=== PATIENT | female | born 1960 | race Caucasian/White ===

== ENCOUNTER 2016-03-28 16:00 | Inpatient (IN) | payer BC, MEDICARE, OTHER ==
[~2016-03-28] VITALS: Ht 170.2 cm; Wt 110.1 kg
[~2016-03-28 16:00] MED LIST: ACETYL L-CARNI500 MG; AMITIZA8 MCG PO; ANALPRAM HC 2.530 GM RC; ANUSOL-HC 2.5%30 GM TOPICAL; ATARAX 25 MG TA25 MG PO; BAYER CHEWABLE81 MG PO; BUMEX2 MG PO; BYSTOLIC10 MG PO; CARDIZEM CD180 MG PO; CELEXA40 MG PO; CLEOCIN HCL150 MG PO; COLACE100 MG PO; COREG25 MG PO; COREG6.25 MG PO; DIOVAN80 MG PO; DOXYCYCLINE HY100 M2 PO; EXFORGE HCT 101 EAC1 PO; EXFORGE HCT 101 EACH PO; FIORICET TABLET1 TAB PO; FLUTICASONE PRO16 GM NS; FOLIC ACID1 MG PO; GLUCOPHAGE1000 MG PO; KEFLEX250 MG PO; KLOR-CON 1010 MEQ PO; LASIX40 MG PO; LEVEMIR FLEXTOUCH 10 SC; LEVEMIR100 U/M1 SC; LEVEMIR100 U/M1 SQ; LYRICA25 MG PO; LYRICA50 MG PO; MAGNESIUM OXID250 MG PO; METHOTREXATE PO; METHOTREXATE2.5 MG PO; METOLAZONE5 MG PO; MICRO-K10 MEQ PO; NORCO 7.5/325 T1 TA1 PO; NOVOLOG100 U/M1 SQ; PAROXETINE HCL10 MG PO; PENICILLIN V P500 MG PO; PEPCID20 MG PO; PHOSLO667 MG PO; PLAVIX75 MG PO; POTASSIUM CHLOR8 ME1 PO; PRAVACHOL20 MG PO; PRAVACHOL40 MG PO; PRILOSEC20 MG PO; PROCRIT/EP40000 UNIT SQ; REQUIP0.25 MG PO; TREXALL10 MG PO; TRIGLIDE160 MG PO; TUMS500 MG PO; ULTRACET TABLET1 TAB PO; VALIUM5 MG PO; VITAMIN D2000 UNIT PO; ZESTORETIC 20/21 TAB PO; ZOFRAN4 MG PO; ZYLOPRIM100 MG PO; ZYRTEC10 MG PO; [UNRECOGNIZED DRUG - OTHER] PO
[2016-03-28] MEDS ORDERED: NOVOLOG100 U/M1 SC (16:49)
[2016-03-28 16:53] VITALS: BMI 37.3
--- NOTE | 2016-03-28 19:58 | NUR ---
REPORT CALLED TO DARRYL OLIVARES IN ICU, PATIENT TRANSPORTED TO ROOM 2307 BY WHEELCHAIR FOR TRANSFUSION TO BE COMPLETED. PATIENT AWAKE, ALERT, NO COMPLAINTS, VSS
--- NOTE | 2016-03-30 16:50 | NUR ---
PT ARRIVED TO UNIT WITH FAMILY AT SIDE. VSS. PT IS ALERT AND ORIENTED AND ANSWERS ALL QUESTIONS APPROPRIATELY. WILL CONTINUE WITH ADMISSION PROCESS AT THIS TIME.
[2016-03-30 16:59] LABS: INR 1.28 (0.85-1.17); PROTIME 15.9 SECONDS (11.6-15.0)
[2016-03-30 17:00] LABS: BASOPHILS 0.2 % (0.0-2.0); EOSINOPHILS 2.2 % (0-7); IMMATURE GRANULOCYTES 0.2 % (0-5); LYMPHOCYTES 26.1 % (15-50); MCH 30.9 pg (26.0-34.0); MCHC 31.4 g/dL (31.0-37.0); MCV 98.7 fL (80.0-100.0); MEAN PLATELET VOLUME 11.8 fL (7.4-10.4); MONOCYTES 4.9 % (2-11); NEUTROPHILS 66.4 % (40-80); RBC 2.23 10x6/uL (4.00-5.40); RDW 17.5 % (11.5-14.5); WBC 4.1 10x3/uL (4.8-10.8)
[2016-03-30 17:03] LABS: HEMOGLOBIN 6.9 g/dL (12-16); PLATELET COUNT 101 10x3/uL (130-400)
[2016-03-30 17:06] LABS: ALBUMIN 2.4 g/dL (3.4-5.0); ANION GAP 11.8 mmol/L (8-16); BILIRUBIN - TOTAL 0.77 mg/dL (0.2-1.3); CALCIUM 8.1 mg/dL (8.5-10.1); CARBON DIOXIDE 27.6 mmol/L (21.0-32.0); CREATININE - SERUM 3.4 mg/dL (0.6-1.3); PHOSPHOROUS 4.2 mg/dL (2.5-4.9); POTASSIUM - SERUM 3.4 mmol/L (3.5-5.1)
[2016-03-30] MEDS ORDERED: LEVEMIR100 U/M1 SC (17:54)
[2016-03-30 17:58] VITALS: BP 116/47; BMI 37.7
--- NOTE | 2016-03-30 18:50 | NUR ---
FSBS 327. PT REC'D 8UNITS PER SS INSULIN. PT IS SITTING UP ON EDGE OF BED EATING DINNER. PT HAS FAMILY AT BEDSIDE. RR NONLABORED ON RA. PT DENIES ANY FURTHER NEEDS AT THIS TIME. CL IN REACH. WILL CPOC.
[2016-03-30 20:00] VITALS: BP 117/47
--- NOTE | 2016-03-30 20:00 | NUR ---
CONTACTED BY [facility]. INSTRUCTED TO ADMINISTER 4 UNITS BLOOD. TO GIVE 2 UNITS FIRST AND RECHECK H&H. IF HEMOGLOBIN <5 OR HEMATOCRIT <25 GIVE 3RD AND 4TH UNITS
--- NOTE | 2016-03-30 22:09 | NUR ---
CONSULT CALLED TO DR GARRETT. APPROX 2148 FOR AM EGD. INSTRUCTED NOT TO CALL CONSULTS IN UNTILL NORMAL BUISNESS HOURS. ALSO INSTRUCTED TO START TAP WATER ENEMAS AT 0600 TO PREP PATIENT FOR AM EGD AND FLEX SIG.
[2016-03-31] VITALS: BP 100/47; BP 112/41
--- NOTE | 2016-03-31 00:25 | NUR ---
NECK CUTTER AT BEDSIDE TO OBTAIN VITALS, CALL LIGHT IN REACH. WILL CONTINUE WITH PLAN OF CARE.
[2016-03-31 05:43] LABS: BASOPHILS 0.4 % (0.0-2.0); EOSINOPHILS 1.2 % (0-7); HEMATOCRIT 23.5 % (36.0-48.0); IMMATURE GRANULOCYTES 0.2 % (0-5); INR 1.34 (0.85-1.17); LYMPHOCYTES 12.7 % (15-50); MCH 31.5 pg (26.0-34.0); MCHC 31.9 g/dL (31.0-37.0); MCV 98.7 fL (80.0-100.0); MONOCYTES 6.8 % (2-11); NEUTROPHILS 78.7 % (40-80); PLATELET COUNT 94 10x3/uL (130-400); PROTIME 16.5 SECONDS (11.6-15.0); RBC 2.38 10x6/uL (4.00-5.40); WBC 4.9 10x3/uL (4.8-10.8)
[2016-03-31 05:49] LABS: ALBUMIN 2.1 g/dL (3.4-5.0); BILIRUBIN - TOTAL 1.7 mg/dL (0.2-1.3); CALCIUM 8.3 mg/dL (8.5-10.1); PROTEIN - SERUM 6.3 g/dL (6.4-8.2)
[2016-03-31 05:55] LABS: CREATININE - SERUM 4.4 mg/dL (0.6-1.3); HEMOGLOBIN 7.5 g/dL (12-16)
--- NOTE | 2016-03-31 06:40 | HP ---
PATIENT: VIVI ALARCON MEDICAL RECORD: [id number] ACCOUNT: [id number] LOCATION:[address] : 56 ADMISSION DATE: 03/30/16 HISTORY AND PHYSICAL EXAMINATION REASON FOR CONSULTATION: Symptomatic anemia with hemoglobin of 5.8. HISTORY OF PRESENT ILLNESS: This is a nice end-stage renal disease patient with the above birthday who had a hemoglobin of 8.[address] Booth' yesterday and is down to 5.2 on dialysis. She is having symptoms. She is unsure whether she is having any bleeding in her stool. REVIEW OF SYSTEMS: Related to her anemia. No chest pain. Some shortness of breath and dyspnea on exertion. PAST MEDICAL HISTORY: 1. End-stage renal disease, on dialysis. 2. Cataracts, in glasses. 3. Allergic rhinitis. 4. Diabetes mellitus type 2, on Levemir. 5. Hypertension. 6. Coronary artery disease with 7 stents in 2012. 7. History of myocardial infarction. 8. History of pneumonia. 9. CPAP. 10. She had rectal bleeding at [facility]. 11. Diabetic neuropathy. 12. Secondary hyperparathyroidism. 13. Hyperlipidemia. PAST SURGICAL HISTORY: With stents as above, HemoSplit catheter IJ, hemorrhoidectomy with Dr. James on 12/18/2015 and cholecystectomy. ALLERGIES: CLINDAMYCIN, LATEX, TETRACYCLINE AND ERYTHROMYCIN. HOME MEDICATIONS: Requip 0.5 mg p.o. q.h.s., Ultram 50 p.r.n. pain, Levemir had been on 40 units and will need to convert her dose. She is also on PhosLo 667 three with meals t.i.d., Coreg 25 b.i.d., pravastatin 40 mg at night, Protonix 40 mg a day, Lyrica 50 mg a day, Amitiza 8 mcg once a day, Colace 100 mg p.o. p.r.n. She will be on insulin sensitive sliding scale. FAMILY HISTORY: Mother and father with diabetes and cardiovascular disease. SOCIAL HISTORY: No alcohol, tobacco or illicit drugs. She is now on dialysis. She is living with her daughter now due to her symptomatic anemia here in [place], but is from [place] initially. PHYSICAL EXAMINATION: VITAL SIGNS: She is 118/72, 66-72 heart rate, 20 respiratory rate, afebrile. GENERAL: She is alert and oriented times 3. HEENT: Normocephalic, atraumatic. Clear nares. Clear throat. She does have pale conjunctiva consistent with her anemia. NECK: No JVD or thyromegaly. CHEST: Regular rhythm. S1, S2. LUNGS: Have clear breath sounds bilaterally. HISTORY AND PHYSICAL [id number] VIVI ALARCON ABDOMEN: Has some obesity. Positive bowel sounds. No appreciable hepatosplenomegaly. IJ tunneled catheter with no sign of erythema. EXTREMITIES: +2 brachial pulses even and bilateral, +1 to 2 lower extremity edema. Negative Babinski. I did not stand and ambulate her as she is on dialysis. LABORATORY DATA: Stat CMP, CBC, INR, type and cross and hold 4 units. ASSESSMENT AND PLAN: 1. Symptomatic anemia. We will consult Dr. Booth as he mentioned that she may need to be placed in the hospital. She does have a history of rectal bleed, has not noted any bleeding at this time. We will continue her Protonix. 2. End-stage renal disease, on dialysis. We will continue her prescription. 3. Hyperphosphatemia. We will continue her phosphate binders and monitor her calcium and phosphorus. 4. Hypertension, is now on Coreg. 5. Coronary artery disease. No current chest pain. We will continue her Coreg. We will continue to evaluate. 6. Chronic obstipation, is on Colace p.r.n. 7. Allergic rhinitis, on Zyrtec 10 mg p.o. daily. 8. Secondary hyperparathyroidism. If she has a prolonged admission, we will continue her vitamin D. 9. Type 2 diabetes, on a sliding scale, we need her dose of Levemir. PLAN: 1. Please see orders. 2. Appreciate Dr. Booth. TRANSINT:[id number] Voice Confirmation ID: [id number] DOCUMENT ID: [id number] ARBEN PIZARRO MD at 0640 CC: [id number] DICTATION DATE: 03/30/16 1349 AUTOMOTIVE GLASS TECHNICIAN: 03/30/16 1427 ADM IN [place] [id number] [place] [address]
[2016-03-31 08:00] VITALS: BP 129/48
--- NOTE | 2016-03-31 08:12 | NUR ---
ASSESSEMENT DONE. PT SITTING UP IN BED TALKING WITH SPOUSE. A/O. NO DISTRESS NOTED. DENIES NEEDS. ENEMA'S STARTED. PT TOLERATED WELL. CALL LIGHT WITH IN REACH. WILL CONT. TO MONITOR.
--- NOTE | 2016-03-31 09:40 | NUR ---
RESTS IN BED WITH CALL LIGHT IN REACH. HAMZAH NEEDS AT THIS TIME. WILL MONITOR.
--- NOTE | 2016-03-31 10:04 | NUR ---
PT TO GI LAB VIA BED
[2016-03-31 10:53] VITALS: Ht 170.2 cm; Wt 110.1 kg
--- NOTE | 2016-03-31 13:25 | NUR ---
PT BACK FROM GI LAB. A/O. WANT SHOWER. REQUEST ICE WATER. DECLINES FOOD AT THIS TIME. B/P 144/44, P-70. CALL LIGHT WITH IN REACH. SPOUSE IN ROOM. WILL CONT. TO MONITOR.
--- NOTE | 2016-03-31 18:20 | NUR ---
PT LAYING IN BED WATCHING TV. SPOUSE IN ROOM. NO DISTRESS NOTED. DENIES NEEDS. CALL LIGHT WITH IN REACH.
[2016-03-31 22:35] VITALS: BP 117/42
--- NOTE | 2016-04-01 01:14 | NUR ---
PT RESTING SOUNDLY WITHOUT C/O OR DISTRESS NOTED. CALL LIGHT IS WITHIN REACH. NO NEEDS VOICED. WILL MONITOR.
[2016-04-01 01:32] VITALS: BP 132/68
[2016-04-01 05:59] VITALS: BP 106/40
--- NOTE | 2016-04-01 07:28 | NUR ---
SIDTTING ON SIDE OF BED WITH AM ROUNDING. SPOUSE IN CHAIR ASLEEP. DENIES NEEDS AT PRESENT TIME. ON ROOM AIR. LEFT AVF SEEN. RIGHT CHEST HEMISPLIT WITH DRY DRESSING INTACT. RIGHT FA WITH SALINE LOCK SEEN. WILL CONTINUE TO MONITOR.
[2016-04-01 08:00] VITALS: BP 146/55
[2016-04-01 09:10] LABS: HEPATITIS C ANTIBODY <0.1 (0.0-0.9)
[2016-04-01 09:52] LABS: BASOPHILS 0.6 % (0.0-2.0); EOSINOPHILS 2.5 % (0-7); HEMATOCRIT 22.9 % (36.0-48.0); IMMATURE GRANULOCYTES 0.3 % (0-5); LYMPHOCYTES 28.7 % (15-50); MCH 30.8 pg (26.0-34.0); MCHC 31.4 g/dL (31.0-37.0); MCV 97.9 fL (80.0-100.0); MEAN PLATELET VOLUME 12.5 fL (7.4-10.4); MONOCYTES 8.6 % (2-11); NEUTROPHILS 59.3 % (40-80); PLATELET COUNT 89 10x3/uL (130-400); RBC 2.34 10x6/uL (4.00-5.40); RDW 18.1 % (11.5-14.5)
[2016-04-01 09:53] LABS: WBC 3.6 10x3/uL (4.8-10.8)
[2016-04-01 09:54] LABS: HEMOGLOBIN 7.2 g/dL (12-16)
--- NOTE | 2016-04-01 10:17 | NUR ---
SMALL, 1CM SCAB SEEN TO INNER LEFT BUTTOCK ALONG CRACK. PATIENT WANTED LARGE BANDAID PLACED FOR COMFORT. DONE.
[2016-04-01 11:16] LABS: ALBUMIN 2.2 g/dL (3.4-5.0); ANION GAP 16.9 mmol/L (8-16); BILIRUBIN - TOTAL 0.67 mg/dL (0.2-1.3); CALCIUM 8.5 mg/dL (8.5-10.1); CARBON DIOXIDE 22.2 mmol/L (21.0-32.0); MAGNESIUM - SERUM 2.1 mg/dL (1.8-2.4); POTASSIUM - SERUM 4.1 mmol/L (3.5-5.1); PROTEIN - SERUM 6.5 g/dL (6.4-8.2)
[2016-04-01 11:25] LABS: PHOSPHOROUS 5.6 mg/dL (2.5-4.9)
[2016-04-01 12:33] VITALS: BP 147/47
--- NOTE | 2016-04-01 15:54 | NUR ---
1530-CALLING 1201, DIALYSIS MIKE TO SEE WHEN KG WILL BE ABLE TO DO [facility]. [facility] DIALYSIS TODAY. NO ANSWER. WHENT DOWNSTAIRS AND THE DOOR IS LOCKED TIGHT. CAME BACK UPSTAIRS AND SONNY IS IN 2133 DOING DIALYSIS. REPORTED TO HER THAT THERE IS NO ONE IN THE DIALYSIS SUITE. ASKED SONNY WHO WILL DO DIALYSIS AND WHEN AND SHE SAID THAT IT WILL BE CLOSER TO 0630-700 PM BEFORE SHE GETS DONE. THIS IS RELAYED TO THE PAITENT AND SPOUSE.
[2016-04-01 16:00] VITALS: BP 123/44
--- NOTE | 2016-04-01 17:46 | NUR ---
BUMEX HELD FOR DIALYSIS THIS EVENING
[2016-04-01 20:30] VITALS: BP 161/71
--- NOTE | 2016-04-01 23:29 | NUR ---
SITTING ON SIDE OF BED. DENIES ANY NEEDS OR DISCOMFORTS. DIALYSIS NURSE REMOVING EQUIPMENT.
[2016-04-02 00:30] VITALS: BP 132/81
[2016-04-02 04:30] VITALS: BP 160/57
[2016-04-02 05:10] LABS: BASOPHILS 0.5 % (0.0-2.0); EOSINOPHILS 2.4 % (0-7); HEMATOCRIT 26.7 % (36.0-48.0); HEMOGLOBIN 8.7 g/dL (12-16); IMMATURE GRANULOCYTES 0.3 % (0-5); LYMPHOCYTES 25.7 % (15-50); MCH 30.6 pg (26.0-34.0); MCHC 32.6 g/dL (31.0-37.0); MEAN PLATELET VOLUME 12.4 fL (7.4-10.4); MONOCYTES 9.3 % (2-11); NEUTROPHILS 61.8 % (40-80); PLATELET COUNT 80 10x3/uL (130-400); RBC 2.84 10x6/uL (4.00-5.40); RDW 17.6 % (11.5-14.5); WBC 3.8 10x3/uL (4.8-10.8)
[2016-04-02 05:45] LABS: ALBUMIN 2.3 g/dL (3.4-5.0); ANION GAP 11.6 mmol/L (8-16); BILIRUBIN - TOTAL 0.93 mg/dL (0.2-1.3); CALCIUM 8.2 mg/dL (8.5-10.1); POTASSIUM - SERUM 3.5 mmol/L (3.5-5.1); PROTEIN - SERUM 6.2 g/dL (6.4-8.2)
[2016-04-02 05:47] LABS: CARBON DIOXIDE 27.9 mmol/L (21.0-32.0); CREATININE - SERUM 3.7 mg/dL (0.6-1.3); PHOSPHOROUS 3.6 mg/dL (2.5-4.9)
--- NOTE | 2016-04-02 07:29 | NUR ---
PT UP WALKING AROUND ROOM THIS AM. AT [facility] PT DENIES NEEDS AT THIS TIME WILL CONTINUE TO MONITOR.
[2016-04-02 09:00] VITALS: BP 127/50
[2016-04-02 11:58] VITALS: BP 134/48
[2016-04-02 17:14] VITALS: BP 126/48
--- NOTE | 2016-04-02 17:32 | NUR ---
PT SITTING UP IN BED WITH AT BEDSIDE. DENIES NEEDS AT THIS TIME. WILL CONTINUE TO MONITOR.
--- NOTE | 2016-04-02 18:46 | CN ---
PATIENT NAME:VIVI ALARCON MEDICAL RECORD: [id number] : 56 LOCATION:[facility] D.2104 ADMIT DATE: 03/31/16 ACCOUNT: [id number] CONSULTING PHYSICIAN: CARLTON FINCH MD REFERRING PHYSICIAN: MATIAS MISHRA MD DATE OF CONSULTATION: 04/02/2016 Surgical Consultation SURGEON: Carlton Finch MD REQUESTING PHYSICIAN: Dr. James. REASON FOR CONSULTATION: Watermelon stomach. HISTORY OF PRESENT ILLNESS: A 56-year-old female who has been in the hospital with end-stage renal disease and recurrent refractory anemia. The patient was hospitalized ____ the same thing. She had a colonoscopy. She had some polyps removed as well as some internal hemorrhoid banding as well as a PPH. She continued to have postoperative refractory anemia and she was seen and evaluated in [place]. She requires transfusions routinely. She was admitted to the hospital earlier this week. 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 Nuclear perfusion scan shows cirrhosis, portal hypertension and hepatosplenomegaly. Currently, the patient denies having any abdominal pain. She denies any recent episodes of hematemesis or hematochezia. She received additional 2 units of packed red blood cells overnight. PAST MEDICAL HISTORY: Neuropathy, restless legs syndrome, diabetes, hypertension, coronary artery disease and sleep apnea. PAST SURGICAL HISTORY: Percutaneous coronary intervention, cardiac stents, cardiac angioplasty, cholecystectomy, HemoSplit, fistula, hemorrhoidectomy, colonoscopy, EGD. ALLERGIES: CLINDAMYCIN, LATEX, TETRACYCLINE AND ERYTHROMYCIN. HOME MEDICATIONS: Include tramadol, Bumex, ____, insulin, Amitiza, hydroxyzine, paroxetine, Colace, Lyrica, allopurinol, and cetirizine. FAMILY HISTORY: She has got cardiovascular disease and diabetes. ____ cancer in her parents as well as cardiovascular disease and diabetes in both her siblings. SOCIAL HISTORY: She is a former smoker. Denies any recent history of smoking, denies any use of alcohol. REVIEW OF SYSTEMS: A 10-point review of systems was obtained, pertinent positive and negative as per the HPI. PHYSICAL EXAMINATION: VITAL SIGNS: Temperature 98.1, heart rate 68, blood pressure 134/48, satting 96% on room air. GENERAL: Well-developed, well-nourished female in no acute distress. EYES: Extraocular muscles are intact. PSYCHIATRIC: She is alert and oriented times 3. CONSULT REPORT [id number] VIVI ALARCON EAR, NOSE, AND THROAT: Normal dentition. CARDIOVASCULAR: Normal sinus rhythm. PULMONARY: She is clear to auscultation bilaterally. ABDOMEN: Soft, nontender, and nondistended. SKIN: Warm and dry with normal turgor. EXTREMITIES: She has got 2+ pulses. She is neurovascularly intact. SKIN: Warm and dry. Normal turgor. NEUROLOGIC: She has a GCS of 15 with no focal deficit. She has a HemoSplit catheter in place on the right chest wall. IMAGES: Personally reviewed. Liver, spleen nuclear scan again reveals cirrhosis, portal hypertension. Ultrasound of the abdomen, arterial studies reveals no evidence of portal vein thrombosis. IMPRESSION: This is a 56-year-old female with symptomatic refractory anemia and end-stage renal disease as well as vascular ectasias of the stomach. PLAN: Continue dialysis per nephrology. Transfuse for refractory anemia. EGD with argon beam evaluation by Dr. Yoo, Sunday or Sunday. The patient with refractory bleeding and portal hypertension, may need evaluation for TIPS procedure by interventional radiology. I will discuss this findings with the silo operator and the primary care team. TRANSINT:[id number] Voice Confirmation ID: [id number] DOCUMENT ID: [id number] CARLTON FINCH MD at 1846 CC: [id number] DICTATION DATE: 04/02/16 1215 FACULTY RESEARCH ASSISTANT: 04/02/16 1351 ADM IN [place] [id number] [place] [id number]
--- NOTE | 2016-04-02 20:04 | NUR ---
PT ASSESSMENT COMPLETED AND PT BEDSIDE ROUNDING COMPLETED. PT LAYING IN BED EYES CLOSED AND PT APPERS TO BE SLEEPING WHILE IN ROOM AND ASSESSING PT PT AROUSED AND WAS AAOX4 RESPERATIONS EVEN AND UNLABORED ON ROOM AIR NO DISTRESS OBSERVED CALL LIGHT IN REACH SRX2 BED LOW AND LOCKED PT DENIES NEEDS OR WANTS
[2016-04-02 21:13] VITALS: BP 108/41
[2016-04-03 00:30] VITALS: BP 108/40
[2016-04-03 04:30] VITALS: BP 142/50
[2016-04-03 06:21] LABS: BASOPHILS 0.3 % (0.0-2.0); EOSINOPHILS 2.8 % (0-7); HEMATOCRIT 24.2 % (36.0-48.0); HEMOGLOBIN 7.7 g/dL (12-16); IMMATURE GRANULOCYTES 0.3 % (0-5); LYMPHOCYTES 34.3 % (15-50); MCH 30.9 pg (26.0-34.0); MCHC 31.8 g/dL (31.0-37.0); MEAN PLATELET VOLUME 12.4 fL (7.4-10.4); MONOCYTES 7.9 % (2-11); NEUTROPHILS 54.4 % (40-80); PLATELET COUNT 74 10x3/uL (130-400); RBC 2.49 10x6/uL (4.00-5.40); RDW 18.1 % (11.5-14.5); WBC 3.6 10x3/uL (4.8-10.8)
[2016-04-03 06:26] LABS: ANION GAP 12.3 mmol/L (8-16); BILIRUBIN - TOTAL 0.8 mg/dL (0.2-1.3); CALCIUM 7.8 mg/dL (8.5-10.1); CARBON DIOXIDE 25.8 mmol/L (21.0-32.0); PHOSPHOROUS 4.5 mg/dL (2.5-4.9); PROTEIN - SERUM 6.1 g/dL (6.4-8.2)
[2016-04-03 06:28] LABS: MCV 97.2 fL (80.0-100.0)
[2016-04-03 06:38] LABS: CREATININE - SERUM 4.9 mg/dL (0.6-1.3); POTASSIUM - SERUM 4.1 mmol/L (3.5-5.1)
[2016-04-03 07:35] VITALS: BP 123/40
--- NOTE | 2016-04-03 10:00 | NUR ---
ALERT AND ORIENTED X4. SITTING UP ON SIDE OF BED. AT BEDSIDE. COMPLAINS OF NAUSEA. CALL FOR ZOFRAN ORDER. RT FA IV INFILTRATED. DC RT FA IV TIP INTACT. RESITE IV 22G RT WRIST SUCCESSFUL X1 ATTEMPT. DENIES SOB. DENIES PAIN. DR. FINCH AWARE OF H&H. BED LOCKED AND LOW. CALL LIGHT IN REACH. TWO SIDERAILS UP.
[2016-04-03 11:22] VITALS: BP 133/45
--- NOTE | 2016-04-03 13:46 | PRO ---
PATIENT:VIVI ALARCON MEDICAL RECORD: [id number] : 56 LOCATION:D.M[address] D.2104 ADMISSION DATE: 03/31/16 PROCEDURE PERFORMED BY: VONDA JAMES MD DATE OF PROCEDURE: 03/31/2016 OPTICAL SCIENTIST: Vonda James MD PROCEDURE: 1. EGD with biopsy times 2. Flexible sigmoidoscopy. INDICATION: The patient is a 56-year-old white female with a history of end-stage renal disease on hemodialysis, who presents for continued evaluation of intermittent hematochezia, anemia requiring transfusion, now questionable melena. She had a full colonoscopy on 12/08/2015 by myself, which revealed 2 small polyps removed and 4 small to moderate sized internal hemorrhoids, which were banded. She also had what looked like a possible anal fissure and she subsequently underwent surgical intervention on her rectum by Dr. Douglass. Her bleeding has decreased as far as hematochezia/rectal bleeding since those procedures in December; however, she has continued to have problems with admissions where she is requiring transfusions. Hematology feels this is more of a GI issue than a ____ issue. She has not had an upper endoscopy. She is now for an EGD and a sigmoidoscopy to relook at this hemorrhoidal area. PREMEDICATION: Taper anesthesia. She received about 320 mcg propofol. INSTRUMENT: Olympus video gastroscope and then colonoscope. FINDINGS: Her EGD was performed first. The gastroscope was passed through the oropharynx to the second portion of the duodenum without difficulty. The esophagus and duodenum were normal; however, the stomach revealed mild to moderate diffuse portal hypertensive gastropathy as well as what looked like watermelon gastritis in her antrum with fairly significant friability seen. Biopsies were obtained from throughout the stomach to rule out H. pylori by means of histology and also to look for portal hypertensive gastropathy. I then performed a sigmoidoscopy. The colonoscope was passed through the rectum and to the mid sigmoid colon without difficulty. Prep was poor. Exam was normal other than no obvious blood seen with the exception of a very slight amount of friability right at the very proximal anal area/distal rectum. However, her hemorrhoids looked much improved from past exam. The patient tolerated the procedure well without any immediate complication. IMPRESSION: 1. 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 2. Very scant friability of the distal rectum/proximal anal area. 3. Otherwise, normal EGD and sigmoidoscopy with the exception of being a very poor prep. RECOMMENDATIONS: 1. Follow up gastric biopsies. 2. Liver workup with a hepatitis screen and a fiber SPECT study, liver and PROCEDURE NOTE [id number] VIVI ALARCON spleen scan and a Doppler ultrasound. 3. Consult Dr. Douglass for a plasma argon laser coagulation of her watermelon gastritis. 4. Depending on all of the above, could consider small bowel capsule endoscopy as an outpatient in the future. TRANSINT:[id number] Voice Confirmation ID: [id number] DOCUMENT ID: [id number] VONDA JAMES MD at 1346 CC: RACHELLE DOUGLASS MD, ARBEN PIZARRO MD and RODY PRASAD MD [id number] DICTATION DATE: 03/31/16 1229 FELLMONGERING MACHINE OPERATOR: 03/31/16 1328 ADM IN [facility] [address] [place] [id number]
--- NOTE | 2016-04-03 13:46 | CN ---
PATIENT NAME:VIVI ALARCON MEDICAL RECORD: [id number] : 56 LOCATION:D. D.[address]104 ADMIT DATE: 03/31/16 ACCOUNT: [id number] CONSULTING PHYSICIAN: VONDA GARRETT MD REFERRING PHYSICIAN: MATIAS MISHRA MD DATE OF CONSULTATION: 03/31/2016 Gastroenterology Consultation REFERRING PHYSICIAN: Dr. Booth. HISTORY OF PRESENT ILLNESS: The patient is a 56-year-old white female with end-stage renal disease on hemodialysis, who basically presents for recurrent problems with anemia, occasional hematochezia and now even occasional melena. I saw this lady in early December of this year with the same presentation mainly ____ hematochezia, this led to a colonoscopy on 12/08/2015, which revealed 2 small polyps which were removed as well as 4 small to moderate size internal hemorrhoids, which were banded. It also looked like she had a possible fissure present and I subsequently had Dr. Douglass look at her who performed surgery on her hemorrhoids/fissure. Interesting enough, she still had significant problems with anemia and persistent intermittent hematochezia, "though not as much as it was before her surgery". ____ she has still been requiring transfusion and her hematocrit is around 20 on admission yesterday. I was asked to see her again for further evaluation for possible repeat endoscopy. PAST MEDICAL HISTORY: As above. She also has diabetes, hypertension, coronary artery disease status post stent placement, sleep apnea, neuropathy, and restless legs syndrome. PAST SURGICAL HISTORY: Remarkable for cholecystectomy, ____ fistula placement and her anal/hemorrhoid surgery by Dr. Douglass. ALLERGIES: CLINDAMYCIN, TETRACYCLINE, AND ERYTHROMYCIN. CURRENT MEDICATIONS: Include allopurinol, insulin, Bumex, tramadol, Atarax, Requip, Paxil, Lyrica, Protonix 40 mg daily, pravastatin, Amitiza, Coreg, Nikia, Colace, and PhosLo. FAMILY HISTORY: Negative for GI disease. SOCIAL HISTORY: The patient is a nonsmoker, nondrinker. REVIEW OF SYSTEMS: Noncontributory other than HPI. PHYSICAL EXAMINATION: GENERAL: Reveals a middle-aged white female in no acute distress. VITAL SIGNS: Stable. She is afebrile. CHEST: Clear. HEART: Regular rate and rhythm. ABDOMEN: Soft, nontender. EXTREMITIES: No edema. LABORATORY DATA: Reveals a white count of 4000, hematocrit 22, MCV of 98, and platelet count 101,000. Electrolytes normal. BUN 64, creatinine 4. Liver CONSULT REPORT [id number] VIVI ALARCON enzymes are normal. INR is 1.28, iron sat is 18%, ferritin is 281, folate is 10. TSH is 4.7, which is a little high. B12 is 1100. IMPRESSION: Persistent and recurrent normocytic anemia associated with persistent problems with hematochezia, now has melena of unclear etiology, rule out persistent hemorrhoidal bleeding, upper gastrointestinal source, etc. PLAN: 1. EGD. 2. Flex sig. 3. Depending on above, consider small bowel capsule endoscopy. Of note, is that she had a full colonoscopy in December of this year as noted above. TRANSINT:[id number] Voice Confirmation ID: [id number] DOCUMENT ID: [id number] VONDA GARRETT MD at 1346 CC: RACHELLE DOUGLASS MD, ARBEN PIZARRO MD and RODY BOOTH MD [id number] DICTATION DATE: 03/31/16 1204 RESIDENTIAL BUILDER: 03/31/16 1243 ADM IN [facility] [address] [place] [address]
[2016-04-03 15:34] VITALS: BP 147/51
--- NOTE | 2016-04-03 16:08 | NUR ---
ALERT AND ORIENTED X4. RESTING IN BED. INITIATE UNIT OF PRBC TRANSFUSION PER DOCTOR'S ORDER. BLOOD CONSENT ON CHART. CONSENTS FOR EGD WITH DR. DOUGLASS SIGNED ON CHART. BP-130/50, T-97.9, P-68, R-18. DENIES PAIN OR SOB. TRANSFUSION INFUSING AT 75mL/HR THROUGH RT WRIST IV. REMAIN IN ROOM FIRST 15MINS TO MONITOR FOR ANY REACTIONS. BED LOCKED AND LOW. CALL LIGHT IN REACH. TWO SIDERAILS UP.
--- NOTE | 2016-04-03 16:23 | NUR ---
ALERT AND ORIENTED X4. DENIES SOB OR PAIN. BP-133/57, P-63, R-18, T-98. NO SIGNS OF REACTION. CONTINUE PRBC TRANSFUSION. CONTINUE PLAN OF CARE AND SAFETY PRECAUTIONS.
[2016-04-03 22:42] VITALS: BP 134/52
[2016-04-04 05:35] VITALS: BP 161/56
--- NOTE | 2016-04-04 06:08 | NUR ---
NURSE ROUNDS 19:30 - PT LYING IN BED, AWAKE, ALERT, ORIENTED, AT BEDSIDE. PT DENIES ANY NEEDS. CONTINUE TO MONITOR.
[2016-04-04 06:31] LABS: BASOPHILS 0.5 % (0.0-2.0); EOSINOPHILS 3.1 % (0-7); HEMATOCRIT 26.3 % (36.0-48.0); HEMOGLOBIN 8.4 g/dL (12-16); IMMATURE GRANULOCYTES 0.2 % (0-5); LYMPHOCYTES 29.2 % (15-50); MCH 29.8 pg (26.0-34.0); MCHC 31.9 g/dL (31.0-37.0); MEAN PLATELET VOLUME 12.2 fL (7.4-10.4); MONOCYTES 7.4 % (2-11); NEUTROPHILS 59.6 % (40-80); PLATELET COUNT 85 10x3/uL (130-400); RBC 2.82 10x6/uL (4.00-5.40); WBC 4.2 10x3/uL (4.8-10.8)
[2016-04-04 06:38] LABS: MCV 93.3 fL (80.0-100.0)
[2016-04-04 06:58] LABS: ALBUMIN 2.3 g/dL (3.4-5.0); ANION GAP 11.1 mmol/L (8-16); BILIRUBIN - TOTAL 0.94 mg/dL (0.2-1.3); CALCIUM 8.7 mg/dL (8.5-10.1); CARBON DIOXIDE 27.3 mmol/L (21.0-32.0); CREATININE - SERUM 5.6 mg/dL (0.6-1.3); PHOSPHOROUS 4.3 mg/dL (2.5-4.9); POTASSIUM - SERUM 4.4 mmol/L (3.5-5.1); PROTEIN - SERUM 6.6 g/dL (6.4-8.2)
--- NOTE | 2016-04-04 07:10 | NUR ---
RECEIVED REPORT. ASSUMED CARE OF PATIENT. PATIENT ALERT/ORIENTED. SITTING TO SIDE OF BED. RESP EVEN AND UNLABORED. CALL LIGHT WITHIN REACH. DENIES PAIN. PATIENT STATES SHE IS ANURIC. PATIENT MADE AWARE OF UA NEEDED AND PATIENT REFUSED IN AND OUT CATH. NO DISTRESS. MALE VISITOR AT BEDSIDE.
[2016-04-04 07:25] VITALS: BP 147/62
--- NOTE | 2016-04-04 09:33 | NUR ---
PER , PATIENT WILL NOT GO TO OR TODAY. WILL HAVE PROCEDURE TOMORROW.
--- NOTE | 2016-04-04 09:53 | NUR ---
CALLED OFFICE TO INFORM HIM PER THAT PATIENT WILL GO TO OR TOMORROW. SPOKE WITH NURSE ONUR. SHE STATED SHE WOULD LET KNOW PATIENT WILL GO TOMORROW FOR EDG WITH [facility].
--- NOTE | 2016-04-04 09:57 | NUR ---
CALLED AND SPOKE TO [place] IN DIALYSIS AND INFORMED HER THAT [facility] IS REQUESTING TO RECEIVE HER FFP AND PLATELETS WHILE RECEIVING DIALYSIS. INDIA STATED "OKAY" AND THAT PATIENT IS ON THE LIST FOR THIS AFTERNOON. PATIENT IS REQUESTING THAT [facility] NOT ADMINISTER HER DIALYSIS TODAY, SHE IS REQUESTING VONDA. THIS AGRICULTURAL CHEMICALS INSPECTOR IS WORKING ON THAT ISSUE.
--- NOTE | 2016-04-04 10:04 | NUR ---
SPOKE WITH VONDA FROM DIALYSIS AND HE STATED THE ONLY OPTIONS THAT PATIENT HAS ARE FOR [facility] TO DO DIALYSIS OR PATIENT CAN REFUSE. HE APOLOGIZE THAT HE HAS MULTIPLE PEOPLE ON THE FLOOR TO GET DONE TODAY. HE STATED IF THIS IS A STICK ISSUE, HE WOULD BE GLAD TO COME AND STICK THE PATIENT BUT HE CANNOT PROVIDE DIALYSIS. THANKED HIM FOR WHAT HE IS WILLING TO DO TO HELP THE PATIENT.
[2016-04-04 11:21] VITALS: BP 139/55
[2016-04-04 13:10] LABS: APPEARANCE HAZY (CLEAR); BACTERIA MODERATE /hpf (NONE SEEN); BILIRUBIN NEGATIVE (NEGATIVE); COLOR YELLOW (YELLOW); EPITHELIAL CELLS 0-5 /hpf (0-5); GLUCOSE 50 mg/dL (NEGATIVE); KETONE SMALL mg/dL (NEGATIVE); LEUKOCYTE ESTERASE 1+ (NEGATIVE); MUCUS <1+ /lpf (NONE SEEN); NITRITE NEGATIVE (NEGATIVE); PROTEIN 1+ mg/dL (NEGATIVE); RED CELLS - URINE 0-5 /hpf (0-5)
--- NOTE | 2016-04-04 13:57 | NUR ---
Nutrition follow-up: Pt is NPO at this time for procedure PO intake of a diabetic diet has been ~75% average of meals Labs reviewed +BM Wt: 253# RDN will monitor patients diet advancement and tolerance post-procedure. RDN following.
--- NOTE | 2016-04-04 14:41 | NUR ---
Is the patient Alert and Oriented? Yes 0 * How many steps to enter\exit or inside your home? 0 0 * PCP DR. FERNANDEZ IN [place] 0 * Pharmacy [facility] IN [place] 0 * Preadmission Environment Home with Family 0 * ADLs Partial Dependent 0 * Partial ADLs (Assistance needed) Ambulation Toileting 0 * Equipment Walker 0 * List name and contact numbers for known caregivers / representatives who currently or will assist patient after discharge: SPOUSE: [place] [phone] DAUGHTER: FLO [phone] 0 * Community resources currently utilized None 0 * Additional services required to return to the preadmission environment? No 0 * Can the patient safely return to the preadmission environment? Yes 0 * Has this patient been hospitalized within the prior 30 days at any hospital? No MET WITH PATIENT REGARDING DISCHARGE PLANNING. SHE STATES THAT SHE LIVES AT HOME WITH HER , [place]. SHE STATES SHE HAS BEEN STAYING HERE IN [place] WITH HER DAUGHTER, FOL. HER PCP IS DR. DELGADO IN [place]. SHE GETS HER MEDS FROM [facility] IN [place]. SHE STATES SHE HAS A WALKER. SHE HAD HOME HEATLH WITH [employer]. PATIENT STATES THERE ARE NO STEPS TO ENTER HER HOME. PATIENT RECEIVES DIALYSIS AT [place] [facility] ON [facility] IN [place]. HER DAUGHTER HAS BEEN DRIVING HER TO AND FROM HER DIALYSIS. PATIENT'S OR HER DAUGHTER WILL BE AVAILABLE TO DRIVE HER HOME AT DISCHARGE.
--- NOTE | 2016-04-04 15:30 | NUR ---
PATIENT TAKEN DOWNSTAIRS TO DIALYSIS AT THIS TIME. NO DISTRESS.
--- NOTE | 2016-04-04 18:32 | NUR ---
2 UNITS OF FRESH FROZEN PLASMA TAKEN TO DIALYSIS NURSE FOR ADMINISTRATION AT THIS TIME. PATIENT TOLERATING DIALYSIS WELL. NO DISTRESS.
[2016-04-04 22:28] VITALS: BP 133/61
[2016-04-05] VITALS (7 sets, daily range): BP systolic 96–198; BP diastolic 37–91
--- NOTE | 2016-04-05 03:43 | NUR ---
20:30 - PT RETURNING FROM DIALYSIS, AWAKE, ALERT, ORIENTED, FAMILY IN ROOM. PT STATES SHE IS COLD, PROVIDED WARM BLANKET. DENIES ANY FURTHER NEEDS. CONTINUE TO MONITOR CLOSELY. BED LOW, CALL LIGHT IN REACH, SIDE RAILS X 2, HOB 20 DEGREES.
--- NOTE | 2016-04-05 05:58 | NUR ---
PT AWAKE, ALERT, ORIENTED, STATES SHE THINKS SHE MAY HAVE RUN FEVER DURING HER SLEEP. WILL CHECK V/S. CONSENTS SIGNED FOR EGD WITH [facility] AND ON HER CHART. PT HAS REMAINED NPO AFTER MIDNIGHT. CONTINUE TO MONITOR CLOSELY.
--- NOTE | 2016-04-05 06:01 | NUR ---
PTS FSBS WAS 428 THIS AM. HUMALOG S/S GIVEN OF 12 UNITS. PT REMAINS NPO. WILL CHECK FSBS CLOSELY. CONTINUE TO MONITOR.
--- NOTE | 2016-04-05 06:31 | NUR ---
PT HAS BEEN FEBRILE OVERNIGHT, WITH THE LAST TEMP BEING 99.3 ORALLY, V/S STABLE. BLOOD CULTURE HAS BEEN DRAWN WITH AM LABS. CONTINUE TO MONITOR CLOSELY.
[2016-04-05 06:58] LABS: BASOPHILS 0.1 % (0.0-2.0); EOSINOPHILS 0.9 % (0-7); HEMATOCRIT 24.3 % (36.0-48.0); HEMOGLOBIN 7.7 g/dL (12-16); IMMATURE GRANULOCYTES 0.3 % (0-5); LYMPHOCYTES 9.6 % (15-50); MCH 30.4 pg (26.0-34.0); MCHC 31.7 g/dL (31.0-37.0); MEAN PLATELET VOLUME 12.5 fL (7.4-10.4); MONOCYTES 7.3 % (2-11); NEUTROPHILS 81.8 % (40-80); PLATELET COUNT 90 10x3/uL (130-400); RBC 2.53 10x6/uL (4.00-5.40); RDW 18.2 % (11.5-14.5)
[2016-04-05 07:08] LABS: WBC 6.9 10x3/uL (4.8-10.8)
[2016-04-05 07:23] LABS: INR 1.42 (0.85-1.17); PROTIME 17.3 SECONDS (11.6-15.0)
[2016-04-05 07:34] LABS: ALBUMIN 2.3 g/dL (3.4-5.0); ANION GAP 14.5 mmol/L (8-16); BILIRUBIN - TOTAL 1.1 mg/dL (0.2-1.3); CALCIUM 7.8 mg/dL (8.5-10.1); CARBON DIOXIDE 24.8 mmol/L (21.0-32.0); CREATININE - SERUM 4.2 mg/dL (0.6-1.3); PHOSPHOROUS 3.4 mg/dL (2.5-4.9); POTASSIUM - SERUM 4.3 mmol/L (3.5-5.1); PROTEIN - SERUM 6.5 g/dL (6.4-8.2)
--- NOTE | 2016-04-05 07:55 | NUR ---
Received call from lab with critical glucose of 427, received report per nurse Tosha this am reported Fsbs 428, already covered per sliding scale.
--- NOTE | 2016-04-05 08:20 | NUR ---
Received lying in bed, verbalized name and , verbalized understanding of NPO status for procedure today. No distress assessed, verbalized no pain.
[2016-04-05 08:28] LABS: PLATELET ESTIMATE DECREASED
--- NOTE | 2016-04-05 12:24 | NUR ---
[facility] - Patient's OPHD clinic is [facility] on TTS @ 10:15. Medical records forwarded to the unit for the patient's chart. ELIZABETH PRL
--- NOTE | 2016-04-05 15:20 | NUR ---
STILL WAITING FOR OR.
--- NOTE | 2016-04-05 15:59 | NUR ---
PREOP FOR OR
--- NOTE | 2016-04-05 19:20 | NUR ---
CARE TRANSFERED TO [facility] OLIVARES.
--- NOTE | 2016-04-05 19:51 | NUR ---
PT RECEIVED BACK FROM [facility] WITH RAYN, AWAKE, ALERT, ORIENTED, AT BEDSIDE. PT STATES SHE IS HUNGRY AFTER BEING NPO ALL DAY. HAS LEFT TO GO GET HER SOMETHING TO EAT. DENIES ANY MORE NEEDS AT THIS TIME. CONTINUE TO MONITOR CLOSELY. BED LOW, CALL LIGHT IN REACH, SIDE RAILS X 2, HOB 20 DEGREES.
[2016-04-06 00:38] VITALS: BP 89/38
[2016-04-06 04:40] VITALS: BP 142/59
[2016-04-06 06:21] LABS: ALBUMIN 2.5 g/dL (3.4-5.0); ANION GAP 14.1 mmol/L (8-16); BILIRUBIN - TOTAL 0.92 mg/dL (0.2-1.3); CALCIUM 8.5 mg/dL (8.5-10.1); CARBON DIOXIDE 28.1 mmol/L (21.0-32.0); POTASSIUM - SERUM 4.2 mmol/L (3.5-5.1); PROTEIN - SERUM 6.8 g/dL (6.4-8.2)
[2016-04-06 06:22] LABS: CREATININE - SERUM 5.3 mg/dL (0.6-1.3); PHOSPHOROUS 6.5 mg/dL (2.5-4.9)
[2016-04-06 06:41] LABS: BASOPHILS 0.2 % (0.0-2.0); EOSINOPHILS 1.9 % (0-7); HEMOGLOBIN 7.8 g/dL (12-16); IMMATURE GRANULOCYTES 0.2 % (0-5); LYMPHOCYTES 30.3 % (15-50); MCH 31.6 pg (26.0-34.0); MCHC 32.5 g/dL (31.0-37.0); MCV 97.2 fL (80.0-100.0); MEAN PLATELET VOLUME 12.4 fL (7.4-10.4); MONOCYTES 6.3 % (2-11); NEUTROPHILS 61.1 % (40-80); PLATELET COUNT 82 10x3/uL (130-400); RBC 2.47 10x6/uL (4.00-5.40); RDW 18.2 % (11.5-14.5)
[2016-04-06 06:46] LABS: WBC 4.3 10x3/uL (4.8-10.8)
[2016-04-06 08:00] VITALS: BP 143/57
--- NOTE | 2016-04-06 08:10 | NUR ---
AM ROUNDING- PT LAYING IN BED WITH EYES CLOSED SLEEPING. GUEST AT BEDSIDE SLEEPING. FSBS ACHS 150 THIS AM WITH NO COVERAGE PER REPORT FROM EARLY CHILDHOOD SPECIAL EDUCATOR NURSEGAGE. PT IS RESERVE LEFT ARM FOR AVF THAT IS NOT IN USE AT CURRENT TIME PER REPORT FROM EARLY CHILDHOOD SPECIAL EDUCATOR NURSE. PT DIALYZES ON T, TH, AND SAT. RIGHT CHEST HEMISPLIT SEEN THAT PT USES FOR DIALYSIS. IV SEEN TO RIGHT WRIST THAT IS SALINE LOCKED AND PATENT. PT IS UP AD KELTON PER REPORT FROM EARLY CHILDHOOD SPECIAL EDUCATOR NURSE. NO MONITOR. WILL CONTINUE TO MONITOR.
--- NOTE | 2016-04-06 08:31 | NUR ---
MARTHA FROM LAB CALLED TO INFORM ME THAT PT HAS GRAM + COCCI IN BLOOD CULTURE. WILL CONTINUE TO MONITOR.
--- NOTE | 2016-04-06 10:38 | NUR ---
PAGESYLVIA BOYDN TO SEE IF PT IS SUPPOSE TO GET TRANSFUSION DURING DIALYSIS. AWAITING CALLBACK.
--- NOTE | 2016-04-06 11:01 | NUR ---
PER PROGRESS NOTES FROM DR. PRASAD, PROGRESS NOTE STATES TO TRANSFUSE PRBC WITH HD PRN FOR HGB <8.5. HGB WAS 7.8 THIS AM.
--- NOTE | 2016-04-06 11:20 | NUR ---
PT TO DIALYSIS VIA WHEELCHAIR.
--- NOTE | 2016-04-06 15:53 | NUR ---
PT BACK FROM DIALYSIS VIA WHEELCHAIR. WILL CONTINUE TO MONITOR.
[2016-04-06 16:00] VITALS: BP 126/51
--- NOTE | 2016-04-06 16:08 | NUR ---
PER REPORT FROM [facility] NURSE, PTS LAST B/P WAS 98/49 IN DIALYSIS, PT GOT ONE UNIT OF PRBC PER ORDER, AND THEY TOOK OFF 2,232CC. WILL CONTINUE TO MONITOR.
--- NOTE | 2016-04-06 18:29 | NUR ---
PT SITTING UP ON SIDE OF THE BED. DENIES ANY NEED AT CURRENT TIME. WILL CONTINUE TO MONITOR.
--- NOTE | 2016-04-06 19:30 | NUR ---
[id number] FROM LAB CALLED STATING PT HAD GARM + COCCI IN BLOOD CULTURE.
[2016-04-06 20:34] VITALS: BP 116/46
[2016-04-07] VITALS: BP 100/36
[2016-04-07 05:18] LABS: BASOPHILS 0.2 % (0.0-2.0); EOSINOPHILS 2.4 % (0-7); HEMATOCRIT 26.2 % (36.0-48.0); HEMOGLOBIN 8.3 g/dL (12-16); IMMATURE GRANULOCYTES 0.2 % (0-5); MCH 30.4 pg (26.0-34.0); MCHC 31.7 g/dL (31.0-37.0); MEAN PLATELET VOLUME 12.6 fL (7.4-10.4); MONOCYTES 9.7 % (2-11); NEUTROPHILS 64.5 % (40-80); PLATELET COUNT 88 10x3/uL (130-400); RBC 2.73 10x6/uL (4.00-5.40); RDW 18.5 % (11.5-14.5); WBC 4.2 10x3/uL (4.8-10.8)
--- NOTE | 2016-04-07 05:29 | NUR ---
CALL LIGHT IN REACH. WILL CONTINUE WITH PLAN OF CARE.
[2016-04-07 05:43] LABS: ALBUMIN 2.5 g/dL (3.4-5.0); ANION GAP 15.1 mmol/L (8-16); BILIRUBIN - TOTAL 1.21 mg/dL (0.2-1.3); CALCIUM 8.5 mg/dL (8.5-10.1); CARBON DIOXIDE 26.6 mmol/L (21.0-32.0); POTASSIUM - SERUM 3.7 mmol/L (3.5-5.1); PROTEIN - SERUM 6.8 g/dL (6.4-8.2)
[2016-04-07 05:47] LABS: CREATININE - SERUM 3.8 mg/dL (0.6-1.3)
--- NOTE | 2016-04-07 06:34 | NUR ---
Nutrition follow-up: Diet: Renal ADA PO intake 100% of meals Labs reviewed +BM RDN following.
--- NOTE | 2016-04-07 07:38 | NUR ---
AM ROUNDING- PT LAYING IN BED WITH EYES CLOSED SLEEPING. GUEST AT BEDSIDE SLEEPING. ON ROOM AIR. NO MONITOR. IV SEEN TO RIGHT WRIST, SALINE LOCKED AND PATENT. RIGHT CHEST HEMESPLIT SEEN THAT PT USES FOR DIALYSIS. PT IS RESERVE LEFT ARM FOR AVF, + BRUIT, + THRILL. PER REPORT FROM CIGARETTE PACKER NURSE, MELLISA, PT DOES NOT CURRENTLY USE AVF FOR DIALYSIS, PT USES HEMESPLIT. PT IS UP AD KELTON. NO NEED AT CURRENT TIME, WILL CONTINUE TO MONITOR.
[2016-04-07 09:01] VITALS: BP 138/53
--- NOTE | 2016-04-07 10:29 | NUR ---
DISCHARGE PAPERWORK SIGNED AND EXPLAINED TO PT AND PLACED IN CHART. IV REMOVED WITH CATH TIP INTACT. TOLERATED WELL. AWAITING FOR PT GET BELONGINGS TOGETHER TO D/C.
--- NOTE | 2016-04-07 11:13 | NUR ---
1040- PT D/C TO HOME VIA WHEELCHAIR.
--- NOTE | 2016-04-07 11:52 | NUR ---
Patient Name: VIVI ALARCON Encounter No: [id number] : 1960 Primary Insurance: [employer] OUT OF STATE Anticipated DC Date: Planned Disposition: Home WITH HOME HEALTH External Planned Provider: [facility] DCP follow-up note: CM RECEIVED DISCHARGE ORDER, MET WITH PT AND SPOUSE IN ROOM TO DISCUSS DISCHARGE NEEDS AND PLANNING. PT REPORTS SHE WILL RETURN TO HER DAUGHTER'S HOME AT [address] [place] [address]. PT DOES NOT WANT NURSING ANY LONG BUT WANTS HOME HEALTH TO CONTINUE WITH PHYSICAL THERAPY. PT'S SPOUSE PROVIDED NEW INSURANCE CARDS FOR THIS YEAR. IMPORTANT MESSAGE FROM MEDICARE PROVIDED AND EXPLAINED. CM PROVIDED COPY OF INSURANCE CARD TO [facility] LABELED WITH PT STICKER. CM CALLED [facility], , SPOKE TO STRATEGY MANAGER NURSE CARLOS WHO WILL NOTIFY OFFICE STAFF FOR RESUMPTION ON SUNDAY. CM FAXED COPY OF INSURANCE CARD WITH DISCHARGE INFORMATION TO [facility] AT [phone]. PT DISCHARGED WITH ASSISTANCE OF FAMILY. Emiliano Velasco, CASE MANAGEMENT
--- NOTE | 2016-05-31 10:17 | OP ---
PATIENT NAME: VIVI ALARCON MEDICAL RECORD: [id number] :56 LOCATION:D.M2 D.2104 ADMISSION DATE:03/31/16 SURGEON: RACHELLE DOUGLASS MD DATE OF OPERATION: 04/05/2016 PREOPERATIVE DIAGNOSES: 1. Acute blood loss anemia requiring transfusions. 2. Recent history of bleeding gastric antral vascular ectasias. POSTOPERATIVE DIAGNOSES: 1. Acute blood loss anemia requiring transfusions. 2. Recent history of bleeding gastric antral vascular ectasias. 3. Ectasias of the duodenal bulb, antral ectasias as well as some fundal ectasias and cardial ectasias. PROCEDURE: Esophagogastroduodenoscopy with argon plasma coagulation therapy to gastric cardia, gastric fundal, gastric antral ectasias as well as the duodenal bulbar ectasias. SURGEON: Rachelle Douglass MD LABOR RELATIONS SUPERVISOR: None. BLOOD LOSS: Minimal. ANESTHESIA: General. COMPLICATIONS: None. The risks, possible complications and alternatives to procedure were explained to the patient. She elects to proceed. OPERATIVE COURSE: The patient was conveyed to the operating room electively on 04/05/2016. General anesthesia was induced by the anesthesia staff. A bite block was inserted. A gastroscope was inserted into the mouth. It was advanced easily into the hypopharynx. The esophagus was easily intubated as were the stomach and duodenum. Upon withdrawal, retroflexed and angulus views were obtained. I advanced into the duodenal wall. Utilizing the argon plasma research home economist with the esophageal setting in the forced mode, I ablated some punctate bulbar ectasias. I then withdrew into the stomach. There were a number of linear ectasias as well as some punctate ectasias up in the cardia of the stomach. These were all thoroughly ablated utilizing the argon plasma research home economist with the esophageal setting in the forced mode. This was a fairly extensive ablation procedure. I noted no evidence of a focal full thickness injury to the stomach. The endoscope was withdrawn under direct vision. No biopsies were obtained. I will see the patient on a p.r.n. basis. If she develops anemia due to blood loss again, she may require a repeat procedure. TRANSINT:[id number] Voice Confirmation ID: [id number] DOCUMENT ID: [id number] OPERATIVE REPORT [id number] DORIANVIVI RACHELLE DOUGLASS MD at 1017 CC: RODY PRASAD MD and MATIAS MISHRA MD [id number] DICTATION DATE: 04/06/16 1210 SPACE PLANNER: 04/06/16 1354 DIS IN 04/07/16 [facility] [address] [place] [address]
== END 2016-04-07 10:40 | disposition home health service (06) | DRG 377 ==
LOC: D.OPS 16:00 → D.ICU 20:01 → D.OPS 23:47 → D.M2 03-30 16:00 → OBSVTIME 03-31 01:47 → D.M2 03-31 16:11
PROVIDERS: Internal Medicine Gastroenterology; Internal Medicine Medical Oncology; Internal Medicine Nephrology; ADMIT Internal Medicine Nephrology
PROC: 0DJD8ZZ Inspection of Lower Intestinal Tract, Via Natural or Artificial Opening Endoscopic (ICD-10-PCS; 2016-03-31)
PROC: 0DB68ZX Excision of Stomach, Via Natural or Artificial Opening Endoscopic, Diagnostic (ICD-10-PCS; principal; 2016-03-31 12:15)
PROC: 0D598ZZ Destruction of Duodenum, Via Natural or Artificial Opening Endoscopic (ICD-10-PCS; 2016-04-05)
PROC: 0D568ZZ Destruction of Stomach, Via Natural or Artificial Opening Endoscopic (ICD-10-PCS; 2016-04-05)
DX: K31.811 Angiodysplasia of stomach and duodenum with bleeding (principal); N18.6 End stage renal disease; K76.6 Portal hypertension; D68.9 Coagulation defect, unspecified; I12.0 Hypertensive chronic kidney disease with stage 5 chronic kidney disease or end stage renal disease; D62 Acute posthemorrhagic anemia; D63.1 Anemia in chronic kidney disease; K31.89 Other diseases of stomach and duodenum; D69.6 Thrombocytopenia, unspecified; K64.8 Other hemorrhoids; R16.1 Splenomegaly, not elsewhere classified; E11.22 Type 2 diabetes mellitus with diabetic chronic kidney disease; K74.60 Unspecified cirrhosis of liver; E11.65 Type 2 diabetes mellitus with hyperglycemia

== ENCOUNTER 2016-04-27 23:33 | Inpatient (IN) | payer OTHER, MEDICARE, BC ==
[~2016-04-27] VITALS: Ht 170.2 cm; Wt 105.5 kg
[~2016-04-27 23:33] MED LIST changes: +NOVOLOG100 U/M1 SC
[2016-04-27 23:45] VITALS: BP 171/71
[2016-04-28] VITALS (40 sets, daily range): BP systolic 85–171; BP diastolic 42–74; Ht 170.2 cm; Wt 105.5 kg
--- NOTE | 2016-04-28 | NUR ---
PT REC'D ON 1.5 LITERS RESTING IN BED, AWAKE, ALERT ORIENTED X 3, PT MAEE, LEFT UPPER ARM FISTULA, PALPABLE THRILL AND AUDIBLE BRUIT, RIGHT FOREARM PIV SALINE LOCKED, PT DENIES CHEST PAIN, COMPLAINS OF SOB ON EXERTION, BILAT LOWER EXT'S WITH DRY DISCOLORED AREAS, PPP, SR UP X 2, CALL LIGHT IN REACH.
[2016-04-28 00:03] LABS: BASOPHILS 0.4 % (0.0-2.0); EOSINOPHILS 2.5 % (0-7); IMMATURE GRANULOCYTES 0.4 % (0-5); LYMPHOCYTES 31.7 % (15-50); MCH 31.6 pg (26.0-34.0); MCHC 31.1 g/dL (31.0-37.0); MCV 101.6 fL (80.0-100.0); MEAN PLATELET VOLUME 11.1 fL (7.4-10.4); PLATELET COUNT 100 10x3/uL (130-400); RDW 18.5 % (11.5-14.5); WBC 5.2 10x3/uL (4.8-10.8)
[2016-04-28 00:05] LABS: HEMOGLOBIN 5.9 g/dL (12-16); RBC 1.87 10x6/uL (4.00-5.40)
--- NOTE | 2016-04-28 00:15 | NUR ---
DR. JUAREZ PEÑA.
--- NOTE | 2016-04-28 00:20 | NUR ---
DR. PIZARRO INFORMED OF PT'S ARRIVAL, NEW ORDERS REC'D.
--- NOTE | 2016-04-28 01:00 | NUR ---
BLOOD CONSENT OBTAINED FROM PT
--- NOTE | 2016-04-28 01:30 | NUR ---
TO BS, UPDATE GIVEN AND QUESTIONS ANSWERED.
--- NOTE | 2016-04-28 02:14 | NUR ---
PT PROVIDED TYLENOL FOR COMPLAINTS OF HEADACHE.
--- NOTE | 2016-04-28 02:15 | NUR ---
PT ASSISTED TO REPOSITION UP IN BED FOR COMFORT, THERMOSTAT ADJUSTED FOR COMFORT, 1ST UNIT PRBC'S BEGUN TO RIGHT FOREARM PIV, WILL MONITOR CLOSELY FOR CHANGES.
--- NOTE | 2016-04-28 03:30 | NUR ---
PT AWAKE REQUESTING BLOOD SUGAR BE CHECKED, FSBS 335, 8 UNITS HUMALOG GIVEN TO LLQ, PT DENIES FURTHER NEEDS.
--- NOTE | 2016-04-28 05:35 | NUR ---
1ST UNIT COMPLETED, NO S/S OF REACTIONS NOTED.
--- NOTE | 2016-04-28 06:00 | NUR ---
DR. CAMPOS AT SPEAKING WITH PATIENT.
--- NOTE | 2016-04-28 06:15 | NUR ---
2ND PRBC BEGUN AT THIS TIME, THERMOSTAT ADJUSTED FOR PT COMFORT, AT BS, WILL MONITOR FOR CHANGES.
[2016-04-28 06:27] LABS: BASOPHILS 0.4 % (0.0-2.0); EOSINOPHILS 2.2 % (0-7); HEMATOCRIT 20.5 % (36.0-48.0); IMMATURE GRANULOCYTES 0.4 % (0-5); LYMPHOCYTES 32.5 % (15-50); MCH 31.6 pg (26.0-34.0); MCHC 31.7 g/dL (31.0-37.0); MEAN PLATELET VOLUME 11.4 fL (7.4-10.4); MONOCYTES 9.1 % (2-11); NEUTROPHILS 55.4 % (40-80); PLATELET COUNT 98 10x3/uL (130-400); RBC 2.06 10x6/uL (4.00-5.40); WBC 4.9 10x3/uL (4.8-10.8)
[2016-04-28 06:34] LABS: MCV 99.5 fL (80.0-100.0)
[2016-04-28 06:35] LABS: HEMOGLOBIN 6.5 g/dL (12-16)
[2016-04-28 07:36] LABS: ALBUMIN 2.2 g/dL (3.4-5.0); ANION GAP 15.6 mmol/L (8-16); BILIRUBIN - TOTAL 2.1 mg/dL (0.2-1.3); CALCIUM 8.3 mg/dL (8.5-10.1); CARBON DIOXIDE 24.9 mmol/L (21.0-32.0); CREATININE - SERUM 5.5 mg/dL (0.6-1.3); POTASSIUM - SERUM 4.5 mmol/L (3.5-5.1); PROTEIN - SERUM 6.4 g/dL (6.4-8.2)
[2016-04-28 07:38] LABS: TROPONIN-I 0.289 ng/mL (0.000-0.060)
[2016-04-28 07:56] LABS: % SATURATION 17 % (15-55); IRON 43 ug/dl (35-150); TOTAL IRON BIND CAPACITY 240 ug/dl (260-445); UNSAT IRON BIND CAPACITY 197 ug/dl (150-375)
--- NOTE | 2016-04-28 08:35 | NUR ---
AM MEDS GIVEN WITHOUT
--- NOTE | 2016-04-28 09:00 | NUR ---
FAMILY AT BEDSIDE, STATUS UPDATED, AWAITING TO SPEAK WITH DR SEGUNDO
--- NOTE | 2016-04-28 10:05 | NUR ---
Is the patient Alert and Oriented? Yes 0 * How many steps to enter\exit or inside your home? 0 0 * PCP DR FERNANDEZ IN [place] NOW SEE'S THE RENAL DOCTORS PCP 0 * Pharmacy [facility] IN [place] OR [facility] [address] IN [place] 0 * Preadmission Environment Home with Family 0 * ADLs Independent 0 * Equipment CPAP Walker 0 * Other Equipment PATIENT HAS CPAP PROVIDED BY [facility] PATIENT 0 * List name and contact numbers for known caregivers / representatives who currently or will assist patient after discharge: SPOUSE: [place] [phone] 0 * Community resources currently utilized None 0 * Additional services required to return to the preadmission environment? No 0 * Can the patient safely return to the preadmission environment? Yes 0 * Has this patient been hospitalized within the prior 30 days at any hospital? Yes 0 PATIENT LIVES AT HOME WITH HER , [place]. SHE STATES HE WILL BE AVAILABLE TO DRIVE HER HOME AT DISCHARGE. SHE IS A DIALYSIS PATIENT AND GETS DIALYSIS M-W- IN [place]. SHE STATES SHE HAS ONLY BEEN TO DIALYSIS IN [place] ONE TIME. PATIENT STATES HER PCP IS DR. DELGADO IN [place]. SHE STATES SHE HAS NOT SEEN THEM IN A WHILE AND NOW CONSIDERS THE RENAL MDS HER PRIMARY. PATIENT GETS HER MEDS FROM [facility] IN [place] OR FROM [facility] ON [facility] IF IN [place]. SHE HAS A WALKER AND CPAP THAT IS PROVIDED BY [facility] PATIENT. PATIENT HAD [facility] IN THE PAST. THERE ARE NO STEPS TO ENTER HER HOME. SHE STATES SHE PLANS TO RETURN TO HER HOME IN [place] AT DISCHARGE. NO DISCHARGE NEEDS IDENTIFIED AT THIS TIME.
--- NOTE | 2016-04-28 11:00 | NUR ---
NO ACUTE CHANGE EFROM PREVIOUS ASSESSMENT VSS, DENIES PAIN AT THIS TIME, CALL LIGHT IN REACH, VOICES NO NEEDS AT THIS TIME
[2016-04-28 11:18] LABS: HEMATOCRIT 23.5 % (36.0-48.0)
[2016-04-28 11:26] LABS: HEMOGLOBIN 7.4 g/dL (12-16)
--- NOTE | 2016-04-28 12:00 | NUR ---
FAMILY AT BEDSIDE, STATUS UPDATED, NO OTHER NEEDS AT THIS TIME, LUNCH TRAY TO BEDSIDE, INDEPENDENT WITH SET UP AND EATING
--- NOTE | 2016-04-28 13:00 | NUR ---
BED CORTEZ PLACE PER REQUEST,6 00 CC CLEAR YELLOW URINE TO CORTEZ, SKIN CARE AND PARTIAL LINEN CHANGE COMPLETED
--- NOTE | 2016-04-28 14:30 | NUR ---
DR SEGUNDO AT BEDSIDE, COUNSELED WITH SPOUSE AND PATIENT, STATES HE WILL NO DO INTERVENTION WITH HEART UNTIL BLEEDING AND BLOOD COUNTS ARE UNDER CONTROL
--- NOTE | 2016-04-28 15:00 | NUR ---
ASSESSMENT COMPLETED, NO ACUTE CHANGE FROM PREVIOUS, VSS, FAMILY AT BEDSIDE, NO NEEDS AT THIS TIME
--- NOTE | 2016-04-28 16:20 | NUR ---
HD BEGAN, VSS 144/62, HR 90, RESP 18, TEMP 99.0, SAT 96% ON 2L NC
--- NOTE | 2016-04-28 16:34 | NUR ---
I UNIT PRBC INITIATED BY HD NURSE, WILLIS FROM NUCLEAR MED HERE FOR EVAL WILL COME BACK IN 3 HOUR POST HD
--- NOTE | 2016-04-28 16:54 | NUR ---
PATIENT PATHWAYS - Patient is from [facility] on a Sunday//Sunday schedule. Medical records forwarded to the patient's in-center clinic. Will cont to monitor for further orders regarding OPHD needs. BMM PRL
--- NOTE | 2016-04-28 17:00 | NUR ---
DINNER TRAY TO BEDSIDE, STATES NO HUNGRY WILL TRY TO EAT LATER, CONTINUES ON HD, WITH VSS
--- NOTE | 2016-04-28 18:00 | NUR ---
FAMILY AT BEDSIDE, STATUS UPDATED, VOICES NO NEEDS AT THIS TIME
--- NOTE | 2016-04-28 19:15 | NUR ---
HD COMPLETED, CALL TO RADIOLOGY FOR NUCLEAR [facility] TECH TO COME FOR BLEEDING SCAN
--- NOTE | 2016-04-28 21:00 | NUR ---
PT CURRENTLY WITH NUCLEAR MED FOR A BLEEDING SCAN.
[2016-04-28 22:24] LABS: HEMOGLOBIN 8.3 g/dL (12-16)
--- NOTE | 2016-04-28 23:45 | NUR ---
1 UNIT OF PRBC STARTED. VSS, NO C/O PAIN. PT REPOSITIONED SELF INDEPENDENTLY. RESTING COMFORTABLY AT THIS TIME. CPOC.
[2016-04-28 23:56] LABS: INR 1.33 (0.85-1.17); PROTIME 16.3 SECONDS (11.6-15.0)
[2016-04-29] VITALS (29 sets, daily range): BP systolic 99–152; BP diastolic 46–83
--- NOTE | 2016-04-29 03:15 | NUR ---
2ND UNIT OF PRBC INFUSING AT THIS TIME. NO S/S OF REACTION NOTED. PT SLEEPING QUIETLY WITH NO S/S OF PAIN OR ACUTE DISTRESS. VSS. PT REPOSITIONED SELF INDEPENDENTLY. CALL LIGHT AND BEDSIDE TABLE WITHIN PT REACH. CPOC.
[2016-04-29 06:30] LABS: BASOPHILS 0.4 % (0.0-2.0); EOSINOPHILS 2.2 % (0-7); HEMATOCRIT 27.5 % (36.0-48.0); HEMOGLOBIN 9.1 g/dL (12-16); IMMATURE GRANULOCYTES 0.4 % (0-5); LYMPHOCYTES 30.6 % (15-50); MCH 30.5 pg (26.0-34.0); MCHC 33.1 g/dL (31.0-37.0); MCV 92.3 fL (80.0-100.0); MEAN PLATELET VOLUME 11.8 fL (7.4-10.4); MONOCYTES 7.2 % (2-11); NEUTROPHILS 59.2 % (40-80); PLATELET COUNT 104 10x3/uL (130-400); RBC 2.98 10x6/uL (4.00-5.40); WBC 5.6 10x3/uL (4.8-10.8)
[2016-04-29 07:02] LABS: ANION GAP 11.6 mmol/L (8-16); CALCIUM 8.7 mg/dL (8.5-10.1); CARBON DIOXIDE 30.4 mmol/L (21.0-32.0); CREATININE - SERUM 3.9 mg/dL (0.6-1.3)
--- NOTE | 2016-04-29 08:33 | NUR ---
PATIENT AWAKE AND ALERT USING IPAD IN BED. SKIN WARM AND DRY. STATES SHE ALWAYS DRINKS TOO MUCH FLUIDS WHILE IN HOSPITAL, REMINDED THAT SHE ORDERS THE FLUIDS THAT COME ON HER DIET TRAY. PATIENT ORDERED 2 JUICES, GLASS OF TEA, AND MILK. LOWER LEGS ARE BROWN IN COLOR STATES SHE CAN USE SCD THEY CAUSE HER PAIN. CAN NOT MOVE TOES ON LEFT FOOT. MUCH WEAKER ON LEFT LEG THAN RIGHT. MONITOR SR. ABD SOFT WITH BOWEL SOUNDS PRESENT OXYGEN REMOVED. GOOD SAT AT 98%. SALINE LOCK IV RIGHT WRIST WITHOUT REDNESS OR SWELLING RIGHT ARM MORE SWOLLEN THAN LEFT. FISTULA IN LEFT UPPER ARM GOOD BRUIT HEARD. STATES IT IS NOT MATURED ENOUGH TO USE YET. BREAKFAST TRAY SERVED.
--- NOTE | 2016-04-29 13:47 | NUR ---
CALL DR Puente REGARDING AMICAR STATES WHEN SUPPLY COMPLETED TO STOP THE MEDICATION.OK TO TRANSFER TO THE FLOOR. DR. SEGUNDO, DR. MEDINA AND Julio WITH NEPHRO GAVE ORDERS TO TRANSFER TO THE FLOOR. PATIENT UP ON BSC GOOD FIRM BLACK STOOL LARGE AMOUNT, SMALL AMOUNT OF URINE DARK [place]. FEET AND LEGS HURT WHEN AMBULATING. USES A WALKER AT HOME. HAS WITH HIM INT HE CAR. ALL EXTREMITIES EDEMOUS. GOOD APPETITE 75% OF BOTH MEALS. IV FLUSHES WITHOUT DIFFICULTY NO REDNESS OR SWELLING AT SITE. MONITOR SR WITHOUT ECTOPICS. ON ROOM AIR.
--- NOTE | 2016-04-29 18:23 | NUR ---
HERE PATIENT WAITING ON ROOM TO TRANSFER TO FLOOR. NAPPING AT INTERVALS. NO DISTRESS. NO SHORTNESS OF BREATH.
--- NOTE | 2016-04-29 19:00 | NUR ---
PT BROUGHT TO ROOM 211 FROM ICU BY NURSE. ACCOMPANIED BY SPOUSE. ACCOMPANIED BY SPOUSE. ALERT/ORIENTED. SALINE LOCK TO RIGHT WRIST. RESERVE LEFT ARM FOR NU AVF. RECIEVES HEMODIALYSIS THREE TIMES WEEKLY. TELEMETRY INITIATED. SR 80'S. ASSESSMENT COMPLETED. PLAN OF CARE CONTINUED/REVIEWED WITH SPOUSE/PATIENT.
[2016-04-30 00:23] VITALS: BP 137/57
[2016-04-30 04:20] VITALS: BP 122/47
[2016-04-30 05:34] LABS: BASOPHILS 0.2 % (0.0-2.0); HEMATOCRIT 26.9 % (36.0-48.0); HEMOGLOBIN 8.7 g/dL (12-16); IMMATURE GRANULOCYTES 0.5 % (0-5); LYMPHOCYTES 28.9 % (15-50); MCH 30.6 pg (26.0-34.0); MCHC 32.3 g/dL (31.0-37.0); MEAN PLATELET VOLUME 11.5 fL (7.4-10.4); MONOCYTES 12.3 % (2-11); NEUTROPHILS 55.1 % (40-80); PLATELET COUNT 97 10x3/uL (130-400); RBC 2.84 10x6/uL (4.00-5.40); RDW 21.3 % (11.5-14.5); WBC 4.3 10x3/uL (4.8-10.8)
[2016-04-30 05:46] LABS: MCV 94.7 fL (80.0-100.0)
[2016-04-30 06:01] LABS: ALBUMIN 2.2 g/dL (3.4-5.0); ANION GAP 12.5 mmol/L (8-16); BILIRUBIN - DIRECT 0.51 mg/dL (0.00-0.30); BILIRUBIN - INDIRECT 0.82 mg/dL (0.00-1.00); BILIRUBIN - TOTAL 1.33 mg/dL (0.2-1.3); CALCIUM 8.3 mg/dL (8.5-10.1); CARBON DIOXIDE 28.2 mmol/L (21.0-32.0); PHOSPHOROUS 5.4 mg/dL (2.5-4.9); POTASSIUM - SERUM 3.7 mmol/L (3.5-5.1); PROTEIN - SERUM 6.3 g/dL (6.4-8.2)
[2016-04-30 06:08] LABS: CREATININE - SERUM 5.4 mg/dL (0.6-1.3)
--- NOTE | 2016-04-30 07:30 | NUR ---
RECEIVED PT IN BED EYES CLOSED RESP UNLABORED NAD NOTED
[2016-04-30 08:00] VITALS: BP 113/53
--- NOTE | 2016-04-30 11:48 | NUR ---
fsbs 256 humalog 10 units given sq abd
[2016-04-30 12:00] VITALS: BP 145/60
[2016-04-30 15:55] LABS: HEMATOCRIT 30.3 % (36.0-48.0); HEMOGLOBIN 9.7 g/dL (12-16)
[2016-04-30 16:00] VITALS: BP 141/53
--- NOTE | 2016-04-30 17:23 | NUR ---
FSBS 246 HUMALOG 8 UNITS GIVEN SQ ABD
--- NOTE | 2016-04-30 19:49 | NUR ---
RESUMED CARE OF LYING IN BED RESPIRATIONS EVEN AND UNLABORED ON ROOM AIR. 70SR ON TELEMETRY. RIGHT FOREARM SALINE LOCKED. CALL LIGHT IN REACH. WILL CONTINUE TO MONITOR. SEE NURSE ASSESSMENT.
[2016-04-30 20:00] VITALS: BP 117/94
[2016-05-01] VITALS: BP 152/61
[2016-05-01 04:00] VITALS: BP 121/42
[2016-05-01 05:40] LABS: BASOPHILS 0.5 % (0.0-2.0); EOSINOPHILS 3.3 % (0-7); HEMATOCRIT 26.5 % (36.0-48.0); HEMOGLOBIN 8.5 g/dL (12-16); IMMATURE GRANULOCYTES 0.3 % (0-5); LYMPHOCYTES 24.2 % (15-50); MCH 30.2 pg (26.0-34.0); MCHC 32.1 g/dL (31.0-37.0); MCV 94.3 fL (80.0-100.0); MEAN PLATELET VOLUME 11.9 fL (7.4-10.4); MONOCYTES 8.8 % (2-11); NEUTROPHILS 62.9 % (40-80); PLATELET COUNT 98 10x3/uL (130-400); RBC 2.81 10x6/uL (4.00-5.40); RDW 20.2 % (11.5-14.5)
[2016-05-01 05:44] LABS: INR 1.28 (0.85-1.17); PROTIME 15.9 SECONDS (11.6-15.0)
[2016-05-01 05:49] LABS: CARBON DIOXIDE 26.2 mmol/L (21.0-32.0); CREATININE - SERUM 5.8 mg/dL (0.6-1.3); PHOSPHOROUS 5.7 mg/dL (2.5-4.9); POTASSIUM - SERUM 4.2 mmol/L (3.5-5.1)
--- NOTE | 2016-05-01 07:30 | NUR ---
RECEIVED PT IN BED EYES CLOSED RESP UNLABORED NAD NOTED
[2016-05-01 08:00] VITALS: BP 142/55
--- NOTE | 2016-05-01 10:13 | NUR ---
PATIENT PATHWAYS - Patient's home unit is [facility] on Mon/Sun/Fri @ 6:00am. Medical records forwarded to the OPHD unit for their records. PRL will continue to follow for any additional updates/orders regarding OPHD needs. BMM PRL
--- NOTE | 2016-05-01 10:53 | NUR ---
IV access-Right wrist IV with some redness and tenderness, removed with cath intact. #22 gauge intracath inserted in right inner forearm x 1 attempt for saline lock. Ida Quintana RN
--- NOTE | 2016-05-01 11:58 | NUR ---
FSBS 242 HUMALOG 8 UNITS GIVEN SQ ABD
[2016-05-01 12:00] VITALS: BP 143/95
[2016-05-01 15:46] LABS: HEMOGLOBIN 8.3 g/dL (12-16)
[2016-05-01 16:00] VITALS: BP 140/50
[2016-05-01 20:00] VITALS: BP 150/47
--- NOTE | 2016-05-01 20:44 | CN ---
PATIENT NAME:VIVI ALARCON MEDICAL RECORD: [id number] : 56 LOCATION:D. D.2114 ADMIT DATE: 04/27/16 ACCOUNT: [id number] CONSULTING PHYSICIAN: VONDA GARRETT MD REFERRING PHYSICIAN: ARBEN LINCOLN MD DATE OF CONSULTATION: 04/28/2016 Gastroenterology Consultation REFERRING PHYSICIAN: Dr. Lincoln. HISTORY OF PRESENT ILLNESS: This patient is a 56-year-old white female with history of end-stage renal disease on hemodialysis, who presents for continued evaluation of occasional hematochezia and anemia requiring transfusion. She had a full colonoscopy in December of 2015 which revealed 3 small polyps removed and 4 small to moderate size internal hemorrhoids which were banded. She also had what looked like renal failure and she subsequently underwent surgical intervention in the rectum by Dr. Douglass. Her bleeding has decreased markedly since then; however, she has continued to have problems and admission with occasional hematochezia requiring transfusions. Hematology feels this is more of a GI issue than a bone marrow issue. Her last admission was in late March of last year with the same presentation. However, she also described possible melena which led to an EGD and a repeat flex sig. 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 Her flex sig was normal other than a poor prep with brown stool, but some minimal friability in the distal rectum/proximal anal area. Otherwise, her exam was normal. She subsequently underwent a liver workup including a liver and spleen scan which was positive for possible cirrhosis. Doppler ultrasound was negative for vein thrombosis. We never could find the cause of her probable cirrhosis. Hep screen was negative while all her mean studies were essentially negative. I will order FIBROSpect study, but I do not see the result of that. She was referred to Dr. Douglass who performed plasma Argon laser coagulation for watermelon gastritis. I do not have any details of that. However, she was discharged to home and claims she has done okay with passing normal brown stools until a day or so ago and when she did see some blood in her stool on her past couple of bowel movements. Since admission, she has not had any bleeding at all. However, her hematocrit was 19. PAST MEDICAL HISTORY: As above. She also has diabetes, hypertension, coronary artery disease, status post stent placement, sleep apnea, neuropathy and restless legs syndrome. PAST SURGICAL HISTORY: Significant for cholecystectomy/hemorrhoidal surgery by Dr. Douglass. ALLERGIES: CLINDAMYCIN, TETRACYCLINE AND ERYTHROMYCIN. FAMILY HISTORY: Negative for GI disease. SOCIAL HISTORY: The patient is a nonsmoker, nondrinker. CONSULT REPORT [id number] VIVI ALARCON REVIEW OF SYSTEMS: Noncontributory per HPI. MEDICATIONS: Include erythropoietin, insulin, Protonix 40 mg daily, allopurinol, Amitiza, Colace, Bumex, PhosLo, tramadol, Atarax, Requip, Lyrica, Paxil, hydrocodone. PHYSICAL EXAMINATION: GENERAL: Reveals a middle-aged white female in no acute distress. VITAL SIGNS: Stable. She is afebrile. CHEST: Clear. HEART: Regular rate and rhythm. ABDOMEN: Soft, nontender. EXTREMITIES: No edema. LABORATORY DATA: Reveals a hematocrit 19, MCV of 101, platelet count 100,000. Electrolytes normal. BUN 67, creatinine 5.5. Iron saturation 17%. Total bilirubin is 2, AST 30, ALT 12, alkaline phosphatase 80, albumin 2.2. B12 and folate levels were normal 2 months ago as well as a TSH level. IMPRESSION: 1. Persistent recurrent macrocytic anemia associated with persistent problems with occasional hematochezia, still unclear etiology, rule out recurrent hemorrhoidal bleeding, anemia from her renal disease/chronic disease, etc. 2. Probable cirrhosis of unclear etiology as noted on liver and spleen scan. I believe she had a positive FIBROSpect, but I do not have that confirmation as of yet. It is conceivable that her portal hypertensive gastropathy could be causing a slow "leak" from GI tract or either in her stomach or possibly in the rectum. 3. History of colon polyps. 4. History of hemorrhoids and anal fissure, status post banding and surgical intervention per Dr. Douglass as noted above. 5. End-stage renal disease, on hemodialysis. RECOMMENDATIONS: 1. I consult both interventional radiology and Dr. Douglass. Consideration will be trying to repeat her EGD with laser Argon coagulation, repeat hemorrhoidal stapling. Check a hepatic venogram wedge pressures to look to see if tips would possibly help her. I could consider small bowel capsule endoscopy as an outpatient in [facility] in a week or so. 2. Transfuse to hematocrit in the mid 20s. I should note that she has been seen by hematology in the past. TRANSINT:[id number] Voice Confirmation ID: [id number] DOCUMENT ID: [id number] VONDA GARRETT MD at 2044 CC: RACHELLE DOUGLASS MD and ARBEN LINCOLN MD [id number] DICTATION DATE: 04/28/16 113 TEST FACILITY ENGINEER: 04/28/162046 ADM IN [place] [id number] [place] [id number]
--- NOTE | 2016-05-01 23:55 | NUR ---
PT ASSESSMENT COMPLETED AT THIS TIME PT LAYINGIN BED WITH IN ROOM AT BEDSIDE AND CALL LIGHT IN REACH NO DISTRESS OBSERVED PT RECIVING BLOOD AT THIS TIME. PT TOLERATING WELL. RESPERATIONS EVEN AND UNLABORED ON ROOM AIR WILL MONITOR
[2016-05-02] VITALS: BP 150/54
[2016-05-02 04:00] VITALS: BP 147/50
--- NOTE | 2016-05-02 04:22 | NUR ---
PT RECIVING SECOND UNIT OF BLOOD AND TOLERATING BLOOD TRANSFUSION WELL. NO DISTRESS OBSERVED CALL LIGHT IN REACH SRX2 AT BEDSIDE WILL MONITOR
[2016-05-02 06:04] LABS: BASOPHILS 0.2 % (0.0-2.0); HEMATOCRIT 29.9 % (36.0-48.0); HEMOGLOBIN 9.6 g/dL (12-16); IMMATURE GRANULOCYTES 0.7 % (0-5); MCH 30.2 pg (26.0-34.0); MCHC 32.1 g/dL (31.0-37.0); MEAN PLATELET VOLUME 12.2 fL (7.4-10.4); MONOCYTES 15.2 % (2-11); NEUTROPHILS 55.9 % (40-80); PLATELET COUNT 95 10x3/uL (130-400); RBC 3.18 10x6/uL (4.00-5.40); RDW 19.1 % (11.5-14.5); WBC 4.4 10x3/uL (4.8-10.8)
[2016-05-02 06:27] LABS: ANION GAP 12.1 mmol/L (8-16); CALCIUM 7.8 mg/dL (8.5-10.1); CARBON DIOXIDE 25.7 mmol/L (21.0-32.0); CREATININE - SERUM 4.6 mg/dL (0.6-1.3); POTASSIUM - SERUM 3.8 mmol/L (3.5-5.1)
[2016-05-02 06:29] LABS: PHOSPHOROUS 3.7 mg/dL (2.5-4.9)
--- NOTE | 2016-05-02 07:55 | NUR ---
AWAKE UP TO BR. NO APPARENT DISTRESS.
[2016-05-02 08:00] VITALS: BP 146/62
[2016-05-02 12:00] VITALS: BP 143/55
--- NOTE | 2016-05-02 13:49 | NUR ---
Nutrition follow-up: Diet: Renal ADA consistent CHO PO Intake 100% of most meals Labs reviewed +BM Wt: 232# PO intake good at this time RDN following.
[2016-05-02 15:01] LABS: HEMATOCRIT 32.6 % (36.0-48.0); HEMOGLOBIN 10.8 g/dL (12-16)
[2016-05-02 16:00] VITALS: BP 142/51
--- NOTE | 2016-05-02 18:19 | NUR ---
PT REC'D 20 UNITS PER SS INSULIN. INITIATED PTS IV IRON INFUSING @135ML/HR VIA R.FA PIV WITH DRSG CDI AND SWAB CAPS IN USE. ORDERED STAT AMMONIA PER DANICA AND ITS TRENDING DOWN, CURRENTLY 49, WILL CONTINUE LACTULOSE ORDERED. PT RESTING QUIETLY WITH AT BEDSIDE. RR NONLABORED ON RA. PT DENIES ANY CURRENT PAIN OR NEEDS. WILL CPOC.
[2016-05-02 19:00] VITALS: BP 157/55
[2016-05-03] VITALS: BP 154/55
[2016-05-03 04:00] VITALS: BP 155/56
[2016-05-03 06:53] LABS: ANION GAP 13.5 mmol/L (8-16); CALCIUM 8.3 mg/dL (8.5-10.1); CREATININE - SERUM 4.9 mg/dL (0.6-1.3); PHOSPHOROUS 4.4 mg/dL (2.5-4.9); POTASSIUM - SERUM 3.5 mmol/L (3.5-5.1)
[2016-05-03] MEDS ORDERED: CHRONULAC30 ML PO (07:09)
[2016-05-03] MEDS ORDERED: HUMALOG 30100 UNITS/ SC (07:10)
[2016-05-03] MEDS ORDERED: LANTUS INSULIN10 ML SC (07:10)
[2016-05-03 07:12] LABS: BASOPHILS 0.5 % (0.0-2.0); EOSINOPHILS 3.7 % (0-7); HEMATOCRIT 29.9 % (36.0-48.0); HEMOGLOBIN 9.6 g/dL (12-16); IMMATURE GRANULOCYTES 0.5 % (0-5); LYMPHOCYTES 25.9 % (15-50); MCH 29.9 pg (26.0-34.0); MCHC 32.1 g/dL (31.0-37.0); MCV 93.1 fL (80.0-100.0); MEAN PLATELET VOLUME 12.4 fL (7.4-10.4); MONOCYTES 12.5 % (2-11); NEUTROPHILS 56.9 % (40-80); PLATELET COUNT 116 10x3/uL (130-400); RBC 3.21 10x6/uL (4.00-5.40); RDW 19.1 % (11.5-14.5); WBC 4.3 10x3/uL (4.8-10.8)
[2016-05-03 08:00] VITALS: BP 145/53
--- NOTE | 2016-05-03 09:17 | NUR ---
LEAVING FOR DIALYSIS BY W/C. WILL CONT. PLAN OARE.
--- NOTE | 2016-05-03 10:27 | NUR ---
Patient Name: VIVI ALARCON Encounter No: [id number] : 1960 Primary Insurance: [facility] Anticipated DC Date: 05-03-2016 Planned Disposition: Home DCP follow-up note: CM MET WITH PT IN DIALYSIS SUITE TO DISCUSS DISCHARGE NEEDS AND PLANNING. CM DISCUSSED AVAILABILITY OF HOME HEALTH, REHAB SERVICES AND MEDICAL EQUIPMENT. PT DENIES DISCHARGE NEEDS. FAMILY TO TRANSPORT HOME AT DISCHARGE TODAY. IMPORTANT MESSAGE FROM MEDICARE PROVIDED AND EXPLAINED. Emiliano Velasco, CASE MANAGEMENT
--- NOTE | 2016-05-03 13:40 | NUR ---
BACK FROM DIALYSIS WITH DC PLANS NOTED.
--- NOTE | 2016-05-03 14:28 | NUR ---
IV DCD. DCPLANS GIVEN. UNDERSTANDING VOICED. ESCORTED TO CAR BY W/C.
--- NOTE | 2016-05-04 07:24 | DS ---
PATIENT:VIVI ALARCON :56 MEDICAL RECORD: [id number] DISCHARGE SUMMARY ADMISSION DATE: 04/27/16 DISCHARGE DATE: 05/03/16 DISCHARGE DATE: 05/03/2016 REASON FOR ADMISSION: 1. Pulmonary edema, ascites, continued cirrhosis. 2. End-stage renal disease. 3. Diabetes, type 2. 4. Diabetic neuropathy. 5. Anemia of chronic kidney disease, evaluated by Dr. Booth. 6. Consultation with Dr. Medellin. HOSPITAL COURSE: This nice lady was admitted on April 28, had a cardiology evaluation by Dr. Roberson, a GI evaluation by Dr. James as well as Dr. Medellin, surgery consult with Dr. Yoo. I admitted her on April 28. She also saw interventional radiology with Diego Ramos and she saw Dr. Booth. HOSPITAL COURSE: Upon discharge, I began rounding again, I did admit her, but in discharging her today, it did take greater than 30 minutes to sort through her medications. We went through most of her medications and she did want to continue her Bumex 2 mg on nondialysis days, her Amitiza 8 mcg, Requip 0.5 q.h.s., Lyrica 50 mg daily. I asked her not to take her Tylenol due to her liver failure. She had been on hydrocodone 7.5/325, which I asked her to be cautious with as well and prefer her Ultram. PhosLo 2001 mg t.i.d. with meals, lactulose 30 cc b.i.d., Amitiza 8 mcg twice a day, docusate 100 mg b.i.d. p.r.n. She did not want to take her Protonix, but I did advise that she take it 40 mg once a day. We decreased her Levemir or Lantus to 35 units subQ q.h.s. with her lispro sliding scale. Anusol-HC cream p.r.n. Her allopurinol was discontinued and we will review with her, she has had any episodes of gout. She will follow up at [facility] Sunday, Sunday and Sunday. She will follow up with the above physicians. She will continue to have care per her . Renal ADA diet. Activity is limited. Stable on discharge. PHYSICAL EXAMINATION: VITAL SIGNS: Blood pressure 155/72, 72 heart rate, and 18 respiratory rate. GENERAL: She is alert and oriented times 3. HEENT: Normocephalic, atraumatic. Clear nares. Clear throat. NECK: No JVD. LUNGS: Regular rhythm. S1 and S2. ABDOMEN: With ascites and positive bowel sounds. EXTREMITIES: +1 to 2 lower extremity edema. No urticarial rash. Lab is stable on discharge and now she is ready for discharge. TRANSINT:[id number] Voice Confirmation ID: [id number] DOCUMENT ID: [id number] DISCHARGE SUMMARY REPORT [id number] VIVI ALACRON, ARBEN LAND at 0724 CC: [id number] DICTATION DATE: 05/03/16713 INFORMATION SYSTEMS MANAGER: 05/03/16 0956 DIS IN 05/03/16 [facility] [address] [place] [address]
--- NOTE | 2016-05-31 10:18 | CN ---
PATIENT NAME:VIVI ALARCON MEDICAL RECORD: [id number] : 56 LOCATION:D. D.2114 ADMIT DATE: 04/27/16 ACCOUNT: [id number] CONSULTING PHYSICIAN: RACHELLE DOUGLASS MD REFERRING PHYSICIAN: ARBEN PIZARRO MD DATE OF CONSULTATION: 04/28/2016 Surgery Consultation Note Addendum CHIEF COMPLAINT: Bleeding. HISTORY OF PRESENT ILLNESS: The patient was admitted with a non-Q-wave myocardial infarction. She is dyspneic. She has had additional bleeding. I have discussed her case personally with Dr. Booth. I discussed her case personally with Dr. James. The patient has been admitted and has undergone a workup for gastrointestinal bleeding and anemia several times. The one test she has not had is a small bowel capsule endoscopy. The patient continues to see Dr. Booth for anemia. She states that she has had 2 episodes of bleeding in the last 24 hours and that they were less than a cup full. This does not account for the patient's very low hematocrit. She does have other comorbidities. Currently, she is having some epistaxis. I am uncertain how much blood she has lost from the epistaxis. She states that she swallowed most of that and is causing some nausea. The patient does have liver disease, which could be causing a decreased in red blood cell manufacturing. She also has renal disease. She has undergone 2 bone marrow biopsies. She has undergone workups here as well as at [facility]. The last therapeutic intervention that I performed was argon plasma coagulation therapy to areas of gastric vascular ectasias, which can bleed and cause anemia. This has been just in the past few weeks and I believe that going back and re-intervening in the stomach actually would be counterproductive. My analogy is that this is kind of like a scab. If you pull a scab off it is going to bleed some more. If I go into a very inflamed stomach and use the argon plasma production lapping machine operator, there is a very good chance that will only worsen any bleeding that may occur or I could actually precipitate hemorrhage. She is having some left upper quadrant abdominal pain. This is over the area of the spleen. She is a little bit tender there. This is tenderness without guarding. There is no peritonitis. Symptoms are mild. Her bleeding is intermittent. The shortness of breath is worsening. The pain is nonradiating. Palpation aggravates. Nothing alleviates. This is a surgery consultation note addendum. For the typed portion of the consultation, please see the chart. This would include the past medical and surgical history, allergies, social history as well home medications. REVIEW OF SYSTEMS: Positive for dyspnea, positive for orthopnea, positive for dyspnea on exertion. Currently, no chest pain. Left upper quadrant abdominal pain. Nausea. No vomiting. No fever and no chills. Positive for fatigue. Positive for generalized weakness. Also, positive for anxiety. The review of systems is negative other than as is described above. PHYSICAL EXAMINATION: GENERAL: The patient does appear acutely ill. She also appears chronically ill. VITAL SIGNS: Reviewed. HEAD: External ears appear normal. EYES: Extraocular movements are intact. CONSULT REPORT [id number] VIVI ALARCON NECK: Trachea is midline. CHEST: No intercostal retractions. PULMONARY: Nonlabored, no stridor. ABDOMEN: As described above. No peritonitis. No Rovsing sign. No Mejia sign. EXTREMITIES: No peripheral cyanosis. INTEGUMENT: No rash, no ulcerations. PSYCHIATRIC: Anxious affect. NEUROLOGIC: Nonfocal, no lethargy. The patient answers questions appropriately, moves all extremities well. BACK: No thoracic kyphosis. LYMPHATICS: No lymphangitic streaking of the exposed extremities. IMPRESSION: 1. Gastrointestinal bleeding. 2. Non-Q-wave myocardial infarction. 3. Respiratory insufficiency. 4. Iron deficiency anemia. 5. Acute blood loss anemia requiring transfusion. PLAN: Dr. Rey and I both agree that endoscopic reintervention at this time would be unwise and likely not fruitful and perhaps harmful. I contacted Dr. Booth. He will be seeing the patient over the weekend as he is insulation packer for the hematology group. I will also order a bleeding scan. Dr. Vargas is covering for me this weekend. TRANSINT:[id number] Voice Confirmation ID: [id number] DOCUMENT ID: [id number] RACHELLE DOUGLASS MD at 1018 CC: [id number] DICTATION DATE: 04/28/16 1534 HEAD CD REACTOR OPERATOR: 04/28/16 2324 DIS IN 05/03/16 [facility] [address] [place] [address]
== END 2016-05-03 14:31 | disposition home or self-care (01) | DRG 441 ==
LOC: D.M2 23:33 → D.ICU 23:33 → D.M2 04-29 19:19 → D.SDCHOLD 05-02 14:55 → D.M2 05-03 14:31
PROVIDERS: Internal Medicine Gastroenterology; Internal Medicine Medical Oncology; Internal Medicine Nephrology; ADMIT Internal Medicine Nephrology
DX: K76.6 Portal hypertension (principal); N18.6 End stage renal disease; I21.4 Non-ST elevation (NSTEMI) myocardial infarction; K92.2 Gastrointestinal hemorrhage, unspecified; I12.0 Hypertensive chronic kidney disease with stage 5 chronic kidney disease or end stage renal disease; I24.8 Other forms of acute ischemic heart disease; D62 Acute posthemorrhagic anemia; Q27.30 Arteriovenous malformation, site unspecified; I25.119 Atherosclerotic heart disease of native coronary artery with unspecified angina pectoris; E11.22 Type 2 diabetes mellitus with diabetic chronic kidney disease; Z99.2 Dependence on renal dialysis; Z79.4 Long term (current) use of insulin; E78.5 Hyperlipidemia, unspecified; D63.1 Anemia in chronic kidney disease; E11.40 Type 2 diabetes mellitus with diabetic neuropathy, unspecified; E83.39 Other disorders of phosphorus metabolism; K31.89 Other diseases of stomach and duodenum; D50.9 Iron deficiency anemia, unspecified; K64.9 Unspecified hemorrhoids; K74.60 Unspecified cirrhosis of liver

== ENCOUNTER 2016-05-17 13:08 | Outpatient (CLI) | payer OTHER, MEDICARE ==
[~2016-05-17] VITALS: Ht 170.2 cm; Wt 107.3 kg
[~2016-05-17 13:08] MED LIST changes: +CHRONULAC30 ML PO; +HUMALOG 30100 UNITS/ SC; +LANTUS INSULIN10 ML SC
[2016-05-17] MEDS ORDERED: NOVOLOG100 U/M1 SC (15:06)
[2016-05-17 15:15] VITALS: Ht 170.2 cm; Wt 107.3 kg
--- NOTE | 2016-05-17 16:00 | NUR ---
1 UNITS OF PRBC'S UP WITH NS AND BLOOD TUBING TO RIGHT ARM PERIPHERAL IV AT 125ML/HR VIA PUMP. DENIES NEED FOR SUPPER TRAY, STATES FAMILY IS GOING TO GO GET HER SOME SUPPER.
--- NOTE | 2016-05-17 16:15 | NUR ---
AWAKENED BRIEFLY FOR VITAL SIGNS, NO SIGNS OF TRANSFUSION REACTION.
--- NOTE | 2016-05-17 18:12 | NUR ---
1800 REPORT FROM BRISEIDA IVERSON RN. PT DROWSY, BLOOD INFUSING AT 150/CC/HR. SPOUSE AT SIDE. DENIES PROBLEMS. NO REQUESTS AT PRESENT.
--- NOTE | 2016-05-17 18:30 | NUR ---
1830 BLOOD HAS COMPLETED, LINE BEING FLUSHED WITH NS.
--- NOTE | 2016-05-17 19:31 | NUR ---
1840 PLATLETS CHECKED AT BEDSIDE BY THIS NURSE AND KARLA KILLIAN RN, INITIATED AT 300/CC/HR BY ALARIS PUMP. PT'S SPOUSE AT SIDE. PT. DOSING AT INTERVALS. DIET LEMON GAKONA REQUESTED AND SERVED.
--- NOTE | 2016-05-17 21:13 | NUR ---
2039 NO PROBLEMS WITH TRANSFUSION, IV DC'D WITH CATH INTACT, RELEASED IN WC.
== END 2016-05-17 20:45 | disposition home or self-care (01) ==
LOC: D.OPS 13:08
DX: D64.9 Anemia, unspecified (principal)

== ENCOUNTER 2016-05-31 04:02 | Inpatient (IN) | payer OTHER, MEDICARE ==
[~2016-05-31] VITALS: Ht 170.2 cm; Wt 105.7 kg
[2016-05-31 04:00] VITALS: BP 153/55
--- NOTE | 2016-05-31 04:45 | NUR ---
RECIEVED TO ROOM 2109, PT A&O, VITALS STABLE, SPO2 100% ON ROOM AIR. BP 153/55, TEMP 98.3 AND RESPERATIONS EVEN AT 18. PLACED ARM BAND ON, PT UP TO BR. WILL CONT TO MONITOR.
--- NOTE | 2016-05-31 05:26 | NUR ---
EVENTS ASSISTANT AT BED SIDE FOR BLOOD DRAW.
[2016-05-31 05:54] LABS: BASOPHILS 0.2 % (0.0-2.0); EOSINOPHILS 1.1 % (0-7); IMMATURE GRANULOCYTES 0.9 % (0-5); LYMPHOCYTES 23.8 % (15-50); MCH 32.6 pg (26.0-34.0); MCHC 31.2 g/dL (31.0-37.0); MCV 104.7 fL (80.0-100.0); MEAN PLATELET VOLUME 11.8 fL (7.4-10.4); MONOCYTES 7.7 % (2-11); NEUTROPHILS 66.3 % (40-80); PLATELET COUNT 130 10x3/uL (130-400); RDW 21.3 % (11.5-14.5); WBC 6.5 10x3/uL (4.8-10.8)
[2016-05-31 05:57] LABS: HEMATOCRIT 19.9 % (36.0-48.0); HEMOGLOBIN 6.2 g/dL (12-16)
[2016-05-31 06:16] LABS: ANION GAP 14.2 mmol/L (8-16); CALCIUM 8.5 mg/dL (8.5-10.1); CARBON DIOXIDE 25.3 mmol/L (21.0-32.0); CREATININE - SERUM 4.9 mg/dL (0.6-1.3); POTASSIUM - SERUM 4.5 mmol/L (3.5-5.1)
--- NOTE | 2016-05-31 06:47 | NUR ---
CALL OUT TO XIOMARA VINCENT APN, EXAMINER RATING CLERK FOR DR CUEVAS TO REPORT CRITICAL HIGH GLUCOSE.
[2016-05-31 08:00] VITALS: BP 137/51
--- NOTE | 2016-05-31 10:00 | NUR ---
ALERT AND ORIENTED X4. GENERALIZED WEAKNESS. AT BEDSIDE. TAKE TO DIALYSIS VIA WHEELCHAIR. CONTINUE PLAN OF CARE AND SAFETY PRECAUTIONS.
--- NOTE | 2016-05-31 10:15 | NUR ---
FIRST UNIT OF PRBC TAKEN TO DIALYSIS FOR TRANSFUSION.
[2016-05-31 10:26] VITALS: BMI 36.8
--- NOTE | 2016-05-31 11:09 | NUR ---
SECOND UNITS OF PRBC TAKEN TO DIALYSIS FOR TRANSFUSION.
[2016-05-31 11:11] VITALS: BP 153/55; Ht 170.2 cm; Wt 105.7 kg
[2016-05-31 16:00] VITALS: BP 117/48
--- NOTE | 2016-05-31 16:22 | NUR ---
PATIENT PATHWAYS: [facility] MWF @ 6:00am. Med recs forwarded to unit. BMM Dialysis Coordinator.
--- NOTE | 2016-05-31 16:26 | NUR ---
Patient Name: VIVI ALARCON Admission Status: Elective Accout number: [id number] Admission Date: 05-31-2016 : 1960 Admission Diagnosis: Attending: MENDEZ Current LOS: 1 Anticipated DC Date: 05-31-2016 Planned Disposition: Home Primary Insurance: [facility] Discharge Planning Comments: * Is the patient Alert and Oriented? Yes 0 * How many steps to enter\exit or inside your home? NONE 0 * PCP DR[place]ERNANDEZ IN [place] 0 * Pharmacy [facility] [place] 0 * Preadmission Environment Home with Family 0 * ADLs Independent 0 * Equipment CPAP Walker 0 * Other Equipment [facility] - MEDICAL EQUIPMENT PROVIDER 0 * List name and contact numbers for known caregivers / representatives who currently or will assist patient after discharge: [place] ALARCON, SPOUSE, 0 * Community resources currently utilized Other 0 * Please name any agencies selected above. OUTPATIENT DIALYSIS [facility], M/W/F, 0600AM FAMILY PROVIDES TRANSPORTATION 0 * Additional services required to return to the preadmission environment? No 0 * Can the patient safely return to the preadmission environment? Yes 0 * Has this patient been hospitalized within the prior 30 days at any hospital? Yes 0 CM MET WITH PT AND SPOUSE IN ROOM TO DISCUSS DISCHARGE PLANNING AND NEEDS. PT REPORTS LIVING AT HOME INDEPENDENTLY WITH SPOUSE. PT HAS WALKER AND CPAP FROM [facility]. PT HAS NO OUTSIDE SERVICES ASSISTING IN THE HOME. PT ATTENDS OUTPATIENT DIALYSIS AT [facility], M/W/F, 0600AM, FAMILY PROVIDES TRANSPORTATION. CM DISCUSSED AVAILABILITY OF HOME HEALTH, REHAB SERVICES AND MEDICAL EQUIPMENT. PT DENIES DISCHARGE NEEDS, REPORTS HER SPOUSE WILL PICK HER UP FOR DISCHARGE HOME. PT PLANS TO DISCHARGE HOME WITH SPOUSE, DENIES DISCHARGE NEEDS AT THIS TIME. CM TO FOLLOW AND ASSIST NEEDED. Order Taker: Emiliano Velasco
[2016-05-31 19:03] LABS: HEMATOCRIT 20.4 % (36.0-48.0)
[2016-05-31 19:08] LABS: HEMOGLOBIN 6.5 g/dL (12-16)
--- NOTE | 2016-05-31 19:19 | NUR ---
CALL OUT TO PAUL VINCENT APN TO NOTIFY OF CRITICALLY LOW HEMOGLOBIN.
--- NOTE | 2016-05-31 19:37 | NUR ---
SPOKE WITH PAUL, INFORMED HER OF PTS HGB OF 6.5. ORDERS GIVEN TO TRANSFUSE TWO UNITS OF PRBCs TONIGHT, PERMISSION GIVEN TO USE BLUE PORT OF HEMOSPLIT DUE TO PT REFUSING TO BE STUCK FOR A PERIPHERAL IV.
--- NOTE | 2016-05-31 20:57 | CN ---
PATIENT NAME:VIVI ALARCON MEDICAL RECORD: [id number] : 56 LOCATION:D. D.2110 ADMIT DATE: 05/31/16 ACCOUNT: [id number] CONSULTING PHYSICIAN: VONDA GARRETT MD REFERRING PHYSICIAN: TRISH CUEVAS MD DATE OF CONSULTATION: 05/31/2016 REFERRING PHYSICIAN: Pavan Lincoln MD. HISTORY OF PRESENT ILLNESS: The patient is a 56-year-old white female with history of end-stage renal disease on hemodialysis, who was admitted with xrmfz-te-gwbdjmr anemia. I have been seeing this lady for the past several months for the same issues. She started having occasional hematochezia and anemia requiring transfusion. She had a full colonoscopy in December 2005, which revealed 3 small polyps removed as well as small to moderate sized internal hemorrhoids, which were banded. She also had what looked like an anal fissure and underwent surgical intervention of the rectum by Dr. Yoo. Her bleeding has decreased markedly since then. However, she has continued to have some off and on problems with minimal/scant hematochezia, as well as anemia requiring transfusion. Hematology with Dr. Booth was felt this is more likely a GI issue then totally a bone marrow issue. She was admitted again in late March of 2016 with the same presentation. She also had questionable melena which led to an EGD and repeat flex sig. 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 Her flex sig was normal other than a poor prep of brown stool and minimal friability at the distal rectum/proximal anal area. She subsequently underwent argon coagulation of her watermelon gastritis with Dr. Yoo. She also underwent liver workup including a liver, spleen scan, which was positive for possible cirrhosis. Doppler ultrasound was negative for portal vein thrombosis. We could never find an absolute calls for probable cirrhosis. Her hep screen was negative and all other liver workup studies were negative. Her fiber SPECT study was positive for marked fibrosis. Her last admission was in late April of this year with again the same presentation. I saw her and basically set a small bowel capsule endoscopy, which is scheduled for this coming Sunday over [facility]. She also has been referred to interventional radiology with Dr. Inocencio Barroso, who was planning on for possible performing a TIPS procedure after her small bowel capsule endoscopy. We have no plans for any further workup other than that at this time. PAST MEDICAL HISTORY: As above. She also has diabetes, hypertension, coronary artery disease status post stent placement, sleep apnea, neuropathy and restless leg syndrome. PAST SURGICAL HISTORY: Remarkable for cholecystectomy and hemorrhoidal surgery by Dr. Yoo. ALLERGIES: ARE TO CLINDAMYCIN, TETRACYCLINE AND ERYTHROMYCIN. FAMILY HISTORY: Negative for GI diseases. SOCIAL HISTORY: The patient is a nonsmoker, nondrinker. CONSULT REPORT [id number] VIVI ALARCON REVIEW OF SYSTEMS: Noncontributory other than in the HPI. HOME MEDICATIONS: Include erythropoietin insulin, Protonix, allopurinol, Amitiza, Colace, Bumex, PhosLo, tramadol, Atarax, Requip, Lyrica, Paxil, and hydrocodone. PHYSICAL EXAMINATION: GENERAL: Reveals a middle-aged white female in no acute distress. VITAL SIGNS: Stable. She is afebrile. CHEST: Clear. HEART: Regular rate and rhythm. ABDOMEN: Soft, nontender. EXTREMITIES: No edema. LABORATORY DATA: Reveals hematocrit of 19, MCV of 101, platelet count of 100. Electrolytes are normal. Recent iron saturation was 17, total bilirubin was 2, AST 30, ALT 12, alkaline phosphatase 80, albumin 2.2. B12 and folate levels were normal months ago as well as TSH level. IMPRESSION: 1. Persistent recurrent macrocytic anemia associated persistent problems with occasional scant hematochezia, still unclear etiology. Rule out anemia from her renal disease/anemia of chronic disease/bone marrow issue, recurrent hemorrhoidal bleeding, which is much less likely at this point, etc. 2. Probable cirrhosis of unclear etiology as noted on liver, spleen scan. She had a positive FIBROSpect, but I am not sure of those results at this time. It is conceivable that her portal hypertensive gastropathy could be causing a slow "leak" from the gastrointestinal tract or either in the stomach or possibly in the rectum. 3. History of colon polyps. 4. History of hemorrhoids and anal fissure, status post banding and surgical intervention by Dr. Yoo as noted above. 5. History of end-stage renal disease, on hemodialysis. RECOMMENDATION: 1. Keep the patient scheduled appointment for small bowel capsule endoscopy on Sunday with [facility] as an outpatient. 2. After that, follow up with Dr. nIocencio Barroso for possible TIPS procedure. 3. Transfuse a few units of blood for now. 4. The patient also has chronic constipation and I would recommend just like I have done the past, MiraLax 1-2 doses daily as well as mineral oil 1-3 teaspoons daily. TRANSINT:[id number] Voice Confirmation ID: [id number] DOCUMENT ID: [id number] VONDA GARRETT MD at 2057 CC: [id number] DICTATION DATE: 05/31/16 1550 ASSISTED LIVING NURSING DIRECTOR: 05/31/16 1853 ADM IN [facility] [address] [place] [id number]
--- NOTE | 2016-05-31 21:18 | NUR ---
HS MEDS GIVEN, BS COVERED PER S/S. PT DENIES PAIN OR NEEDS, BED LOW, CL IN REACH.
[2016-05-31 21:56] VITALS: BP 154/51
--- NOTE | 2016-05-31 22:25 | NUR ---
BLOOD CONSENT SIGNED AND WITNESSED. 1 UNIT OF PRBCs INFUSING TO BLUE PORT OF RIGHT CHEST HEMOSPLIT. VITALS STABLE, WILL CONT TO MONITOR.
--- NOTE | 2016-05-31 23:32 | NUR ---
PRBCs STILL INFUSING TO RIGHT CHEST HEMOSPLIT, VITALS REMAIN STABLE, NO S/S ADVERSE REACTIONS NOTED.
--- NOTE | 2016-06-01 00:11 | NUR ---
TRAFFIC COORDINATOR AT BEDSIDE TO OBTAIN VITALS, CALL LIGHT IN REACH. WILL CONTINUE WITH PLAN OF CARE.
[2016-06-01 01:17] VITALS: BP 135/48
--- NOTE | 2016-06-01 01:17 | NUR ---
PRBCS FINSIHED INFUSING, LINE FLUSHING WITH NS, VITALS STABLE. NO S/S ADVERSE REACTION NOTED.
--- NOTE | 2016-06-01 01:52 | NUR ---
SECOND UNIT OF PRBCs INFUSING, VITALS STABLE, WILL CONT TO MONITOR.
[2016-06-01 05:11] VITALS: BP 150/62
[2016-06-01 06:35] LABS: BASOPHILS 0.4 % (0.0-2.0); EOSINOPHILS 2.1 % (0-7); IMMATURE GRANULOCYTES 1.1 % (0-5); LYMPHOCYTES 28.4 % (15-50); MCH 31.3 pg (26.0-34.0); MCHC 32.5 g/dL (31.0-37.0); MEAN PLATELET VOLUME 11.5 fL (7.4-10.4); PLATELET COUNT 107 10x3/uL (130-400); RDW 22.7 % (11.5-14.5); WBC 5.6 10x3/uL (4.8-10.8)
[2016-06-01 06:37] LABS: HEMATOCRIT 28.3 % (36.0-48.0); HEMOGLOBIN 9.2 g/dL (12-16); MCV 96.3 fL (80.0-100.0); RBC 2.94 10x6/uL (4.00-5.40)
[2016-06-01 07:02] LABS: ANION GAP 11.9 mmol/L (8-16); CALCIUM 8.8 mg/dL (8.5-10.1); CREATININE - SERUM 3.9 mg/dL (0.6-1.3); POTASSIUM - SERUM 3.9 mmol/L (3.5-5.1)
--- NOTE | 2016-06-01 07:45 | NUR ---
PATIENT IS RESTING QUIETLY IN HER BED, AT THE BEDSIDE. THEY ARE FRIENDLY AND COMMUNICATIVE. SHE DENIES PAIN AT THIS TIME BUT GUARDS PALPATION OF HER LEG FROM EVEN LIGHT PALPATION. SHE STATES THAT HER SKIN HURTS ALL OVER. CARDIAC MURMUR NOTED. BOWEL SOUNDS NORMAL. HER HEMOSPLIT IS COVERED WITH A CLEAN DRESSING AND SHE REQUESTS IT BE CHANGED. WILL DISCUSS PROPER DRESSING WITH SAFETY TEACHER. CALL LIGHT IS WITHIN HER REACH. MONTIORING.
[2016-06-01 08:10] VITALS: BP 38/51
--- NOTE | 2016-06-01 10:50 | NUR ---
PATIENT FSBS 460. 12 UNITS OF HUMALOG GIVEN R ARM. SHE IS WITHOUT COMPLAINTS CURRENTLY. MONITORING.
--- NOTE | 2016-06-01 10:50 | NUR ---
PATIENT GIVEN HER MORNING MEDICATIONS. CVL DRESSING KIT USED TO PROVIDE A STERIL DRESSING TO THE HEMOSPLIT. THE INSERTIONS SITE AND THE STITCHES ARE WITHOUT REDNESS OR EVIDENCE OF INFECTION. PATIENT AGAIN DISPLAYS A SUPER SENEITIVITY TO TOUCH.
--- NOTE | 2016-06-01 12:00 | NUR ---
PATIENT FSBS 460. 12 UNITS OF HUMALOG GIVEN R ARM. SHE IS WITHOUT COMPLAINTS CURRENTLY. MONITORING.
[2016-06-01 12:25] VITALS: BP 129/43
--- NOTE | 2016-06-01 12:57 | NUR ---
Nutrition follow-up: Diet: Renal consistent CHO PO intake 75-100% of meals Labs: Glucose running very high > 400 mg/dl Wt: 239# +BM RDN visited with pt during meal rounds. Pt happy with meals at this time and PO intake is good. RDN following.
[2016-06-01 16:14] LABS: HEMATOCRIT 22.9 % (36.0-48.0)
[2016-06-01 16:16] LABS: HEMOGLOBIN 7.3 g/dL (12-16)
[2016-06-01 16:18] VITALS: BP 138/59
--- NOTE | 2016-06-01 16:20 | NUR ---
SPOKE WITH ED SWEET TO REPORT THE DROP IN HER HEMAGLOBIN TODAY. NEW ORDERS RECEIVED TO INFUSE 2 UNITS OF PRBC TOMORROW WHILE ON DIALYSIS.
--- NOTE | 2016-06-01 18:56 | NUR ---
REPORTED DROP IN THE HEMAGLOBIN TO DR. GARRETT. NO NEW ORDERS RECEIVED. PATIENT WAS GIVEN 10 UNITS FOR FSBS OF 353 EARLIER. SHE HAS FRIEDNS AT THE [facility] AND IS HAPPILY VISITING.
--- NOTE | 2016-06-01 19:45 | NUR ---
INTRODUCED MYSELF TO PT PRIMARY RN [facility]. PT IS ALERT AND ORIENTED RESTING QUIETLY IN BED. SHIFT ASSESSMENT COMPLETED. PT DENIES ANY CURRENT NEEDS AT THIS TIME. CL IN REACH, BED IN LOWEST, SIDE RAILS X2. WILL CPOC AND PULL MEDS FOR NIGHTLY MED PASS SHORTLY.
[2016-06-01 20:00] VITALS: BP 139/54
[2016-06-02] VITALS: BP 145/48
[2016-06-02 00:52] LABS: HEMATOCRIT 23.1 % (36.0-48.0)
--- NOTE | 2016-06-02 00:53 | NUR ---
PT LYING BACK IN BED RESTING QUIETLY WITH EYES CLOSED. RR NONLABORED ON RA. NO S/S OF DISTRESS OR ANY NEEDS AT THIS TIME. CL IN REACH. WILL CPOC.
[2016-06-02 00:58] LABS: HEMOGLOBIN 7.5 g/dL (12-16)
--- NOTE | 2016-06-02 01:05 | NUR ---
LAB CALLED TO NOTIFY ME OF HGB LEVEL. CURRENTLY 7.5 WHICH HAS ACTUALLY SLIGHTLY INCREASED FROM LAST DRAW OF 7.3. WILL CTM.
[2016-06-02 04:00] VITALS: BP 150/57
[2016-06-02 06:17] LABS: BASOPHILS 0.4 % (0.0-2.0); EOSINOPHILS 3.2 % (0-7); HEMATOCRIT 24.2 % (36.0-48.0); HEMOGLOBIN 7.7 g/dL (12-16); IMMATURE GRANULOCYTES 1.1 % (0-5); LYMPHOCYTES 34.8 % (15-50); MCH 30.9 pg (26.0-34.0); MCHC 31.8 g/dL (31.0-37.0); MCV 97.2 fL (80.0-100.0); MEAN PLATELET VOLUME 11.9 fL (7.4-10.4); MONOCYTES 14.9 % (2-11); NEUTROPHILS 45.6 % (40-80); RBC 2.49 10x6/uL (4.00-5.40); RDW 22.4 % (11.5-14.5)
[2016-06-02 06:28] LABS: PLATELET COUNT 81 10x3/uL (130-400); WBC 2.8 10x3/uL (4.8-10.8)
[2016-06-02 06:38] LABS: ANION GAP 11.2 mmol/L (8-16); CALCIUM 8.5 mg/dL (8.5-10.1); CARBON DIOXIDE 28.5 mmol/L (21.0-32.0); CREATININE - SERUM 4.5 mg/dL (0.6-1.3); POTASSIUM - SERUM 3.7 mmol/L (3.5-5.1)
--- NOTE | 2016-06-02 07:40 | NUR ---
RECEIVED REPORT FROM NIGHT NURSE. AWAKE AND SITTING ON BEDSIDE. NO APPARENT DISTRESS. WILL RECEIVE BLOOD IN DIALYSIS.
[2016-06-02 07:56] VITALS: BP 165/58
--- NOTE | 2016-06-02 10:50 | NUR ---
PT REMAINS IN DIALYSIS AT THIS TIME. WILL MONITOR PT WHEN SHE RETURNS TO THE FLOOR.
--- NOTE | 2016-06-02 11:11 | NUR ---
FIRST UNIT OF BLOOD TAKEN DOWN TO DIALYSIS TO BE INITIATED.
--- NOTE | 2016-06-02 12:20 | NUR ---
DELIVERED SECOND UNIT OF BLOOD TO DIALYSIS.
--- NOTE | 2016-06-02 13:11 | NUR ---
Nutrition Follow Up: CHart reviewed. Pt is eating 100% meal avg on a Renal ADA diet. Wt gain 4# noted since admit. +BM 06/01/16. Meds noted including Lactulose, Levemir, Bumex, Humalog. Labs noted. Pt with excellent po intake at this time. Rec continue current diet. RD following.
[2016-06-02 16:06] VITALS: BP 127/43
--- NOTE | 2016-06-02 19:11 | NUR ---
UNIT PRBC COMPLETED PT TOLERATED WELL AND HEMOSPLIT IS FLUSHED WITH NORMAL SALINE @ 100ML/HR NO DISTRESS OBSERVED WILL MONITOR
--- NOTE | 2016-06-02 20:00 | NUR ---
INTRODUCED MYSELF TO PT PRIMARY RN FOR [facility] SHIFT. PT IS ALERT AND ORIENTED RESTING QUIETLY IN BED. SHIFT ASSESSMENT COMPLETED. PT DENIES ANY CURRENT NEEDS AT THIS TIME. CL IN REACH, BED IN LOWEST, SIDE RAILS X2. WILL CPOC AND PULL MEDS FOR NIGHTLY MED PASS SHORTLY.
[2016-06-02 20:31] VITALS: BP 159/57
--- NOTE | 2016-06-02 21:30 | NUR ---
FSBS 344. PT REC'D 8 UNITS PER SS INSULIN ALONG WITH 50 UNITS OF SCHEDULED LEVEMIR. PT IS SITTING UP IN HER BED RESTING COMFORTABLY WATCHING TV. STATES SHE HAS HAD A GOOD DAY AND HOPES TO BE DISCHARGED TOMORROW LONG HGB DOESNT DROP AGAIN. PT HAS CL IN REACH, BED IN LOWEST, SIDE RAILS X2. NO FURTHER NEEDS. WILL CPOC.
[2016-06-03 00:15] VITALS: BP 159/58
--- NOTE | 2016-06-03 01:29 | NUR ---
PT RESTING QUIETLY IN BED WITH EYES CLOSED. RR NONLABORED ON RA. NO S/S OF DISTRESS OR ANY CURRENT NEEDS AT THIS TIME. CL IN REACH. WILL CPOC.
[2016-06-03 04:30] VITALS: BP 142/43
[2016-06-03 05:46] LABS: BASOPHILS 0.3 % (0.0-2.0); EOSINOPHILS 1.4 % (0-7); IMMATURE GRANULOCYTES 0.3 % (0-5); LYMPHOCYTES 29.4 % (15-50); MCH 30.6 pg (26.0-34.0); MCHC 32.3 g/dL (31.0-37.0); MONOCYTES 10.9 % (2-11); NEUTROPHILS 57.7 % (40-80); PLATELET COUNT 71 10x3/uL (130-400); RDW 21.2 % (11.5-14.5); WBC 3.5 10x3/uL (4.8-10.8)
[2016-06-03 05:48] LABS: MCV 94.8 fL (80.0-100.0); RBC 3.27 10x6/uL (4.00-5.40)
[2016-06-03 06:38] LABS: ANION GAP 13.6 mmol/L (8-16); CALCIUM 8.2 mg/dL (8.5-10.1); CARBON DIOXIDE 26.2 mmol/L (21.0-32.0); CREATININE - SERUM 3.8 mg/dL (0.6-1.3); POTASSIUM - SERUM 3.8 mmol/L (3.5-5.1)
--- NOTE | 2016-06-03 07:00 | NUR ---
RECEIVED REPORT. ASSUMED CARE OF PATIENT. CALL LIGHT WITHIN REACH. RESTING IN BED WITH EYES OPEN. RESP EVEN AND UNLABORED. PATIENT AWAITING TO BE DISCHARGED TODAY. DENIES NEEDS. NO DISTRESS.
[2016-06-03 07:55] VITALS: BP 148/61
--- NOTE | 2016-06-03 10:00 | NUR ---
RESTING WELL IN BED. DENIES NEEDS. INQUIRING ABOUT DISCHARGE. NURSE PRACTITIONER ON UNIT GIVING ORDERS AT THIS TIME. NO DISTRESS.
--- NOTE | 2016-06-03 10:30 | NUR ---
PATIENT IN SHOWER GETTING READY TO LEAVE AT THIS TIME. NO DISTRESS. DENIES ANY ASSISTANCE AT THIS TIME.
--- NOTE | 2016-06-03 10:50 | NUR ---
DISCHARGE INSTRUCTIONS PROVIDED TO PATIENT AND HER SPOUSE. PATIENT VERBALIZED ALL INSTRUCTIONS PROVIDED. PATIENT VERBALIZED THAT SHE IS ON HER WAY TO [facility] UPON LEAVING FACILITY AT THIS TIME.
--- NOTE | 2016-06-03 11:00 | NUR ---
PATIENT LEFT UNIT IN WHEELCHAIR WITH ALL PERSONAL BELONGINGS. PATIENT IN NO DISTRESS UPON LEAVING UNIT. PATIENT DISCHARGED TO HOME WITH FAMILY AT THIS TIME.
== END 2016-06-03 11:00 | disposition home or self-care (01) | DRG 808 ==
LOC: D.M2 04:02
PROVIDERS: ADMIT Internal Medicine
DX: D61.9 Aplastic anemia, unspecified (principal); N18.6 End stage renal disease; I12.0 Hypertensive chronic kidney disease with stage 5 chronic kidney disease or end stage renal disease; E87.1 Hypo-osmolality and hyponatremia; Z99.2 Dependence on renal dialysis; E11.9 Type 2 diabetes mellitus without complications; I25.10 Atherosclerotic heart disease of native coronary artery without angina pectoris; D75.82 Heparin induced thrombocytopenia (HIT)

== ENCOUNTER 2016-06-12 04:08 | Inpatient (IN) | payer OTHER, MEDICARE ==
[~2016-06-12] VITALS: Ht 170.2 cm; Wt 112.9 kg
--- NOTE | ~2016-06-12 | HEMODYNAMI ---
PATIENT:VIVI ALARCON MEDICAL RECORD: [id number] : 56 LOCATION:[place] [address] ADMISSION DATE: 06/12/16 Generatedon:06/13/201613:58 Patient name: VIVI ALARCON Patient #: [id number] : 1960 Date of study: 06/13/2016 Page: Of Hemodynamic Procedure Report Patient Data Patient Demographics Procedure consent was obtained First Name: VIVI Gender: Female Last Name: DORIAN : 1960 Patient #: [id number] Age: 56 year(s) Race: SSN: [id number] Additional ID: [id number] Contact details [address]: [address] [place] [address] State: [place] City: [place] Zip code: [address] Past Medical History Allergies Allergen Reaction Date Comments Reported Other allergy 01/20/2015 LATEX,TETRACYCLINE Other allergy 06/13/2016 tetracycline, erythromycin, clindamycin, latex Admission Admission Data Admission Date: 06/12/2016 Admission Time: 4:35 Arrival Date: 06/13/2016 Arrival Time: 0:00 Admit Source: Other Room #: 2127 Height (in.): 66.93 BSA: 2.18 (m2) Height (cm.): 170 BMI: 37.37 (kg/m2) Weight (lbs.): 238.1 Weight (kg.): 108 Lab Results Lab Result Date: 06/13/2016 Lab Result Time: 0:00 Biochemistry Name Units Result Min Max BUN mg/dl 45 --(----)-* 7 18 Creatinine mg/dl 3.6 --(----)-* 0.6 1.3 CBC Name Units Result Min Max Hemoglobin g/dl 7.5 *-(----)-- 13.5 17.5 Procedure Procedure Types Cath Procedure Diagnostic Procedure LHC LHC w/Coronaries Miscellaneous Procedures Moderate Sedation up to 45 minutes Procedure Description Procedure Date Procedure Date: 06/13/2016 Procedure Start Time: 13:39 Procedure End Time: 13:54 Procedure Staff Name Function Vitaly Roberson MD Performing Physician Estrellita Mcintyre RT Scrub Renard Gastelum RN Nurse Cat Cardoso RT Monitor Procedure Data Cath Procedure Fluoroscopy Diagnostic fluoroscopy Total fluoroscopy Time: 1.5 time: 1.5 min min Diagnostic fluoroscopy Total fluoroscopy dose: 532 dose: 532 mGy mGy Contrast Material Contrast Material Type Amount (ml) Isovue 370 55 Entry Location Entry Primary Successful Side Size Upsize Upsize Entry Closure Succes sful Closure Location (Fr) 1 (Fr) 2 (Fr) Remarks Device Remarks Femoral Right 5 Fr Exoseal artery Estimated blood loss: 5 ml Diagnostic catheters Device Type Used For End Catheter Placement Cordis 5Fr JL 4.0 Left Coronary Catheter (MP) Angiography Cordis 5Fr 3DRC Catheter Right Coronary (MP) Angiography Cordis 5Fr Pigtail LV Angiography Catheter (MP) Procedure Complications No complications Procedure Medications Medication Administration Route Dosage Oxygen NC 2 l/min Lidocaine 2% added to field 20 Heparin Flush Bag added to field 2 bags (1000units/500ml NS) 0.9% NaCl I.V. 50 ml/hr Versed I.V. 1 mg Fentanyl I.V. 50 mcg Versed I.V. 1 mg Fentanyl I.V. 50 mcg Versed I.V. 0.5 mg Fentanyl I.V. 25 mcg Hemodynamics Rest BSA: 2.18 (m2) HGB: 7.5 (g/dl) O2 Consumption: Estimated: 220.38 (ml/min) O2 Con sumption indexed: Estimated:101.09 (ml/min/m) Heart Rate: 85 (bpm) Pressure Samples Time Site Value (mmHg) Purpose Heart Use Rate(bpm) 13:49 LV 122/32,61 Snapshot 81 13:50 AO 113/38(65) Pullback 80 13:50 LV 125/13,28 Pullback 80 Gradients Valve Time Site 1 Site 2 Mean SEP/DFP Peak To Heart Use (mmHg) (sec/min) Peak Rate (mmHg) (bpm) Aortic 13:50 LV AO 19 28 12 80 125/13,28 113/38(65) Calculations Valve P-P Mean Valve Index Valve Source Name Gradient Area Flow (cm2) Aortic 12 19 12 19 Snapshots Pre Cath Intra NCS Post Cath Vital Signs Time Heart Resp SPO2 etCO2 [id number] NIBP (mmHg) Rhythm Pain Sedation Rate (ipm) (%) (mmHg) (mmHg) Status Level (bpm) 13:04:07 87 19 97 0 0 174/71(113) NSR 0 (11) 10(A) , No pain 13:08:29 88 16 98 0 0 173/72(109) NSR 0 (11) 10(A) , No pain 13:12:54 84 13 98 0 0 165/65(112) NSR 0 (11) 10(A) , No pain 13:17:16 83 16 99 0 0 150/66(107) NSR 0 (11) 10(A) , No pain 13:21:34 80 15 98 0 0 147/63(94) NSR 0 (11) 10(A) , No pain 13:25:50 81 14 96 0 0 145/65(113) NSR 0 (11) 10(A) , No pain 13:30:06 80 14 98 0 0 146/65(109) NSR 0 (11) 10(A) , No pain 13:34:24 80 15 98 0 0 139/56(101) NSR 0 (11) 10(A) , No pain 13:38:36 81 15 97 0 0 133/69(113) NSR 0 (11) 9(A) , No pain 13:42:43 80 16 96 0 0 145/75(112) NSR 0 (11) 9(A) , No pain 13:46:59 81 15 97 0 0 140/60(94) NSR 0 (11) 9(A) , No pain 13:51:13 80 16 97 0 0 152/63(100) NSR 0 (11) 9(A) , No pain 13:56:17 79 16 96 0 0 146/61(110) NSR 0 (11) 10(A) , No pain Medications Time Medication Route Dose Verified Delivered Reason Notes Effe ctiveness by by 13:10:26 Oxygen NC 2 Vitaly Buffie used for l/min Da Gastelum outside residential sales professional 13:10:32 Lidocaine 2% added 20ml Vitaly Vitaly for local to vial Da Roberson MD anesthetic field 13:10:38 Heparin Flush added 2 Vitaly Vitaly used for Bag to bags Da Roberson MD procedure (1000units/500ml field NS) 13:10:46 0.9% NaCl I.V. 50 Vitayl Buffie Per ml/hr Da Gastelum RN physician 13:33:27 Versed I.V. 1 mg Vitaly Buffie for Da Gastelum RN sedation 13:33:33 Fentanyl I.V. 50 Vitaly Buffie for mcg Da Gastelum RN sedation 13:41:10 Versed I.V. 1 mg Vitaly Buffie for Da Gastelum RN sedation 13:41:13 Fentanyl I.V. 50 Vitaly Buffie for mcg Da Gastelum RN sedation 13:47:03 Fentanyl I.V. 25 Vitaly Buffie for mcg Da Gastelum RN sedation 13:47:57 Versed I.V. 0.5 Vitaly Buffie for mg Da Gastelum RN sedation Procedure Log Time Note 12:34:58 Arrival Date: 06/13/2016 12:00:00 AM 12:35:00 Admit Source: Other 12:35:26 Diagnostic Cath Status : Elective 12:36:13 Patient Height : 66.93 cm 12:36:21 Patient Weight : 238.1 kg 12:37:51 Lab Result : Creatinine 3.6 mg/dl 12:37:51 Lab Result : BUN 45 mg/dl 12:37:51 Lab Result : Hemoglobin 7.5 g/dl 12:44:56 Renard Gastelmu RN sent for patient. Start room use. 12:44:58 Time tracking: Regular hours 12:45:07 Plan of Care:Hemodynamics will remain stable., Cardiac rhythm will remain stable., Comfort level will be maintained., Respiratory function will remain adequate., Patient/ family verbilizes understanding of procedure., Procedure tolerated without complication., Recovers from procedure without complications.. 12:45:48 H&P Date Dictated: 06/13/2016 Within 30 days and on chart.. 12:53:32 Patient received from Med II to CCL 1 Alert and oriented. Tansferred to table in Supine position. 12:53:37 Warm blankets applied, and ryann hugger turned on for patient comfort. 12:53:39 Correct patient and procedure confirmed by team. 12:53:41 Signed procedure consent form obtained from patient. 12:56:04 ECG and BP/O2 sat monitors applied to patient. 12:56:05 Full Disclosure recording started 12:59:21 Use device set Femoral Dx 12:59:23 Acist Syringe opened to sterile field. 12:59:23 Bag Decanter opened to sterile field. 12:59:24 Medline Cath Pack opened to sterile field. 12:59:24 Terumo 5Fr [place] Sheath opened to sterile field. 12:59:25 St Shahab 260cm J .035 wire opened to sterile field. 12:59:26 Acist Hand Control opened to sterile field. 12:59:27 Acist Manifold opened to sterile field. 12:59:27 Diagnostic Infinity 5Fr Multipack catheter opened to sterile field. 12:59:28 Tegaderm 4 x 4 opened to sterile field. 13:00:28 Rhythm: sinus rhythm 13:00:34 Pre-procedure instructions explained to patient. 13:00:34 Pre-op teaching completed and patient verbalized understanding. 13:00:37 Family in patients room. 13:00:40 Patient NPO since Midnight. 13:01:15 Patient allergic to Other allergytetracycline, erythromycin, clindamycin, latex 13:01:17 Is the patient allergic to Iodine/contrast media? No. 13:01:20 Is patient on blood thinner?No 13:01:53 Patient diabetic? Yes. 13:01:54 If diabetic: On Metformin? No 13:01:58 Previous problem with sedation/anesthesia? No ? 13:02:00 Snore? Yes 13:02:01 Sleep apnea? Yes 13:02:03 Deviated septum? No 13:02:03 Opens mouth fully? Yes 13:02:04 Sticks out tongue? Yes 13:02:06 Airway obstruction? No ? 13:02:09 Dentures? No ? 13:02:18 Pre procedure: right dorsailis pedis pulse 2+ Normal; easily identifiable; not easily obliterated 13:02:29 Patient pain scale 0/10 ?. 13:02:39 IV patent on arrival in right forearm with 0.9% NaCl at [facility]. 13:02:43 Lab results completed and on chart. 13:02:46 Right groin area was prepped with chlora-prep and draped in sterile fashion 13:02:47 Alarms reviewed by R. N. 13:02:47 Sharps counted by scrub and verified by R.N. 13:02:56 Vital chart was started 13:10:26 Oxygen 2 l/min NC was administered by Renard Gastelum RN; used for procedure; 13:10:32 Lidocaine 2% 20ml vial added to field was administered by Vitaly Roberson MD; for local anesthetic; 13:10:38 Heparin Flush Bag (1000units/500ml NS) 2 bags added to field was administered by Vitaly Roberson MD; used for procedure; 13:10:46 0.9% NaCl 50 ml/hr I.V. was administered by Renard Gastelum RN; Per physician; 13:12:09 Physician arrived 13:12: --------ALL STOP TIME OUT------ 13:12:10 Final Timeout: patient, procedure, and site verified with staff and physician. All members of the team are in agreement. 13:12:15 Right groin site verified by team. 13:12:19 Physical assessment completed. ASA score P 3 - A patient with severe systemic disease as per Vitaly Roberson MD. 13:12:23 Sedation plan: IV Moderate Sedation Versed, Fentanyl 13:16:13 Baseline sample Acquired. 13:33:27 Versed 1 mg I.V. was administered by Renard Gastelum RN; for sedation; 13:33:33 Fentanyl 50 mcg I.V. was administered by Renard Gastelum RN; for sedation; 13:39:29 Procedure started. 13:39:34 Local anesthetic to right femoral artery with Lidocaine 2% by Vitaly Roberson MD.INITIAL ACCESS ONLY 13:39:42 A 5 Fr sheath was inserted into the Right Femoral artery 13:40:19 A Cordis 5Fr JL 4.0 Catheter (MP) was advanced over the wire and used for Left Coronary Angiography. 13:41:10 Versed 1 mg I.V. was administered by Renard Gastelum RN; for sedation; 13:41:13 Fentanyl 50 mcg I.V. was administered by Renard Gastelum RN; for sedation; 13:45:06 LCA angiography performed. 13:45:08 Injector settings: Ml/sec: 3, Volume: 6, 13:46:21 Catheter removed. 13:46:34 A Cordis 5Fr 3DRC Catheter (MP) was advanced over the wire and used for Right Coronary Angiography. 13:46:52 RCA angiography performed. 13:46:55 Injector settings: Ml/sec: 3, Volume: 6, 13:47:03 Fentanyl 25 mcg I.V. was administered by Renard Gastelum RN; for sedation; 13:47:57 Versed 0.5 mg I.V. was administered by Renard Gastelum RN; for sedation; 13:48:42 Catheter removed. 13:48:48 A Cordis 5Fr Pigtail Catheter (MP) was advanced over the wire and used for LV Angiography. 13:49:57 LV hemodynamics recorded. 13:49:58 LV gram done using [place] 13:50:01 Injector settings: Ml/sec: 5, Volume: 15, 13:50:12 EF : 50 % 13:50:36 Catheter removed. 13:51:05 Cordis 5Fr Exoseal opened to sterile field. 13:51:29 Sheath removed intact; hemostasis achieved with Exoseal to the Right Femoral artery. 13:51:31 Procedure ended.(Physican Out) 13:51:52 Fluoroscopy time 01.50 minutes. 13:52:50 Flurop Dose total: 532 13:52:50 Fluoroscopy dose: 532 mGy 13:53:07 Contrast amount:Isovue 370 55ml. 13:53:12 Sharps counted by scrub and verified by R.N. 13:53:13 Insertion/operative site no bleeding no hematoma. 13:53:16 Post-op/insertion site Right Femoral artery dressed using a 4 x 4 and Tegaderm. 13:53:19 Post right femoral artery:stable 13:53:22 Post Procedure Pulses reassessed and unchanged 13:53:24 Post procedure rhythm: unchanged. 13:53:35 Estimated blood loss: 5 ml 13:53:37 Post procedure instruction explained to patient.Patient verbalizes understanding. 13:53:38 Patient needs reinforcement of post procedure teaching. 13:53:54 Procedure type changed to Cath procedure, Diagnostic procedure, LHC, LHC w/Coronaries, Miscellaneous Procedures, Moderate Sedation up to 45 minutes 13:53:55 Procedure and supply charges have been captured, reviewed, submitted and are correct. 13:53:59 Procedure Complication : No complications 13:54:04 Vital chart was stopped 13:54:10 See physician's report for complete and final results. 13:54:16 Report given to [facility]. 13:54:19 Patient transfered to [facility] with Stretcher. 13:54:21 Procedure ended. 13:54:21 Full Disclosure recording stopped 13:54:25 End room use (Document Last) Device Usage Item Name Manufacture Quantity Catalog Hospital Part Current Minimal Lo t# / Number Charge Number Stock Stock Serial# Code Acist Acist 1 05146 837245 961990 [id number] 20 Syringe Medical Systems Inc Bag Microtek 1 2002S 442177 90380 188726 5 Decanter Medical Inc. Medline Cardinal 1 [id number] 266269 52434 770560 5 Cath Pack Health Terumo 5Fr Terumo 1 [id number] 609425 163386 965701 [address] Shahab 1 111381 307857 518686 431085 30 260cm J .035 wire Acist Hand Acist 1 84482 563722 676627 141931 5 Control Medical Systems Inc Acist Acist 1 54566 339349 858959 094696 5 Manifold Medical Systems Inc Diagnostic Cardinal 1 [id number] 587572 91522 431213 30 Infinity Health 5Fr Multipack catheter Tegaderm 4 3M 1 1626W 673606 433386 958359 5 x 4 Cordis 5Fr Cardinal 1 401150 5 JL 4.0 Health Catheter (MP) Cordis 5Fr Cardinal 1 273784 5 3DRC Health Catheter (MP) Cordis 5Fr Cardinal 1 818594 5 Pigtail Health Catheter (MP) Cordis 5Fr Cardinal 1 EX500 719955 548493 320993 10 [employer] Health Signature Audit Penrose Stage Time Signature Unsigned Intra-Procedure 06/13/2016 Cat Cardoso 1:58:42 PM RT(R) Signatures Monitor : Cat Cardoso RT Signature : Date : Time : [facility] [address] [place] [address]
--- NOTE | 2016-06-12 04:46 | NUR ---
PT ARRIVED VIA EMS FROM [place]. NO DISTRESS NOTED. TO BR AT THIS TIME. WILL CONTINUE TO MONITOR.
[2016-06-12 04:58] VITALS: BP 142/49; BMI 37.2
--- NOTE | 2016-06-12 05:30 | NUR ---
ADMISSION ASSESSMENT, HISTORY AND HOME MED LIST COMPLETED. VSS. FSBS 554 AND 534 RESPECTIVELY. IV TO RAC SL. LAVF WITH BRUIT AND THRILL NOTED. R CHEST HEMOSPLIT NOTED. PT STATES WILL NOT ALLOW BLOOD DRAW UNLESS FROM HEMOSPLIT. NEPHROLOGY SERVICES PAGED. O2 2LNC WILL CONTINUE TO MONITOR. SR UP X2, CALL LIGHT WITHIN REACH.
--- NOTE | 2016-06-12 06:06 | NUR ---
DR PIZARRO RETURNS PAGE. INFORMED OF PT'S VS, BLOOD GLUCOSE AND OVERALL STATUS. INFORMED PT WANTING TO USE HEMOSPLIT FOR LAB AND BLOOD DRAWS. DR PIZARRO STATED NO. INFORMED PT OF DR PIZARRO'S RESPONSE AND SRESSED IMPORTANCE OF ALLOWING LAB TO DRAW AM BLOOD FOR TYPE AND CROSSMATCH. PT RELUCTANTLY AGREED. WILL CONTINUE TO MONITOR.
--- NOTE | 2016-06-12 06:57 | NUR ---
AWAITING LAB RESULTS. WILL CONTINUE TO MONITOR.
[2016-06-12 07:23] LABS: BASOPHILS 0.2 % (0.0-2.0); EOSINOPHILS 2.2 % (0-7); HEMOGLOBIN 5.5 g/dL (12-16); IMMATURE GRANULOCYTES 1.6 % (0-5); LYMPHOCYTES 27.9 % (15-50); MCH 32.2 pg (26.0-34.0); MCHC 32.4 g/dL (31.0-37.0); MCV 99.4 fL (80.0-100.0); MEAN PLATELET VOLUME 12.2 fL (7.4-10.4); MONOCYTES 7.7 % (2-11); NEUTROPHILS 60.4 % (40-80); RBC 1.71 10x6/uL (4.00-5.40)
[2016-06-12 07:24] LABS: PLATELET COUNT 121 10x3/uL (130-400)
--- NOTE | 2016-06-12 07:31 | NUR ---
BS 528 PER LAB. PHARMACY HERE WITH INSULIN. REG INSULIN 20 UNITS GIVEN SIVP TO JOSELIN SL. WILL CONITNUE TO MONITOR.
[2016-06-12 07:35] LABS: ANION GAP 14.2 mmol/L (8-16); CALCIUM 8.6 mg/dL (8.5-10.1); CARBON DIOXIDE 24.6 mmol/L (21.0-32.0); CREATININE - SERUM 4.6 mg/dL (0.6-1.3); POTASSIUM - SERUM 4.8 mmol/L (3.5-5.1)
[2016-06-12 07:39] LABS: TROPONIN-I 0.911 ng/mL (0.000-0.060)
[2016-06-12 08:17] VITALS: BP 113/47
[2016-06-12 15:55] VITALS: BP 160/61
[2016-06-12 16:01] LABS: BASOPHILS 0.5 % (0.0-2.0); EOSINOPHILS 1.7 % (0-7); IMMATURE GRANULOCYTES 1.4 % (0-5); LYMPHOCYTES 27.2 % (15-50); MCH 31.6 pg (26.0-34.0); MCHC 33.5 g/dL (31.0-37.0); MEAN PLATELET VOLUME 11.9 fL (7.4-10.4); MONOCYTES 10.2 % (2-11); RDW 18.1 % (11.5-14.5); WBC 4.2 10x3/uL (4.8-10.8)
[2016-06-12 16:22] LABS: RBC 2.37 10x6/uL (4.00-5.40)
[2016-06-12 16:23] LABS: HEMATOCRIT 22.4 % (36.0-48.0); HEMOGLOBIN 7.5 g/dL (12-16); MCV 94.5 fL (80.0-100.0); PLATELET COUNT 100 10x3/uL (130-400)
[2016-06-12 16:29] LABS: INR 1.24 (0.85-1.17); PROTIME 15.5 SECONDS (11.6-15.0)
--- NOTE | 2016-06-12 16:30 | NUR ---
CRITICAL LAB RESULT AMMONIA LEVEL 94, HGB 7.5, HCT 22.4, RBC 2.37 CALLED TO JESUS RENAL NEEDLEMAKER. ALERT AND ORIENTED X4. DENIES SOB. TREAT ITCHING PER ORDER. INITIATE PAIN MANAGEMENT ORDERED. BED LOCKED AND LOW. CALL LIGHT IN REACH. TWO SIDERAILS UP.
[2016-06-12 16:31] LABS: ANION GAP 9.7 mmol/L (8-16); CALCIUM 7.8 mg/dL (8.5-10.1); CREATININE - SERUM 2.6 mg/dL (0.6-1.3); POTASSIUM - SERUM 3.7 mmol/L (3.5-5.1)
[2016-06-12 20:00] VITALS: BP 127/55
--- NOTE | 2016-06-12 21:10 | NUR ---
HS MEDS GIVE, BS 390, COVERED PER S/S. HS SNACK PROVIDED. DENIES PAIN OR OTHER NEEDS, BED LOW, CL IN REACH.
--- NOTE | 2016-06-13 00:27 | NUR ---
SAP CRM DEVELOPER AT BEDSIDE FOR VS, NEEDS ADDRESSED. CALL LIGHT IN REACH. WILL CONT TO MONITOR.
[2016-06-13 02:00] VITALS: BP 148/63
--- NOTE | 2016-06-13 03:45 | NUR ---
RESTING WITH EYES CLOSED, RESPERATIONS EVEN, NO S/S DISTRESS NOTED.
[2016-06-13 04:00] VITALS: BP 116/51
[2016-06-13 06:19] LABS: BASOPHILS 0.5 % (0.0-2.0); EOSINOPHILS 2.6 % (0-7); HEMATOCRIT 22.6 % (36.0-48.0); IMMATURE GRANULOCYTES 1.2 % (0-5); LYMPHOCYTES 26.4 % (15-50); MCH 31.8 pg (26.0-34.0); MCHC 33.2 g/dL (31.0-37.0); MCV 95.8 fL (80.0-100.0); MEAN PLATELET VOLUME 12.1 fL (7.4-10.4); MONOCYTES 8.9 % (2-11); NEUTROPHILS 60.4 % (40-80); PLATELET COUNT 103 10x3/uL (130-400); RBC 2.36 10x6/uL (4.00-5.40); RDW 19.3 % (11.5-14.5); WBC 4.3 10x3/uL (4.8-10.8)
[2016-06-13 06:31] LABS: INR 1.23 (0.85-1.17); PROTIME 15.4 SECONDS (11.6-15.0)
[2016-06-13 06:37] LABS: ANION GAP 10.1 mmol/L (8-16); CALCIUM 8.4 mg/dL (8.5-10.1); CARBON DIOXIDE 27.8 mmol/L (21.0-32.0); POTASSIUM - SERUM 3.9 mmol/L (3.5-5.1)
[2016-06-13 06:47] LABS: CREATININE - SERUM 3.6 mg/dL (0.6-1.3)
[2016-06-13 07:18] LABS: HEMOGLOBIN 7.5 g/dL (12-16)
[2016-06-13 08:39] VITALS: BP 164/65
--- NOTE | 2016-06-13 12:52 | NUR ---
ALERT AND ORIENTED X4. INITIATE PRE-OP FOR TIMBER GRADER. UNABLE TO SCAN MEDICATIONS. MEDICATIONS GIVEN: VALIUM 5mg PO, BENADRYL 50mg IV, NS. TRANSPORT TO TIMBER GRADER VIA BED. CONTINUE PLAN OF CARE AND SAFETY PRECAUTIONS.
[2016-06-13 13:37] VITALS: Ht 170.2 cm; Wt 112.9 kg
--- NOTE | 2016-06-13 14:27 | NUR ---
RETURN TO ROOM VIA BED FROM PHOTOVOLTAIC SUBCONTRACTOR. SEDATED. AROUSES TO VOICE. BP-151/68, T-97.8, R-18, P-85. PULSES PALPABLE BILATERALLY. RT GROIN DRESSING CLEAN DRY INTACT. DENIES PAIN. REMAIN FLAT 2HRS. IR IN ROOM EXPLAINING TIPs PROCEDURE. CONTINUE PLAN OF CARE AND SAFETY PRECAUTIONS.
--- NOTE | 2016-06-13 15:35 | NUR ---
INITIATE FIRST UNIT OF PRBC TRANSFUSION ORDERED. BP-142/64, T-97.8, P-79, R-16. TRANSFUSION INFUSING THROUGH RT AC PERIPHERAL IV @ 75mL/HR. TRANSFUSE OVER 4HRS PER . SLEEPING IN BED. AT BEDSIDE. REMAIN IN ROOM FIRST 15MINS TO MONITOR FOR ANY REACTION. EKG NORMAL PLACED ON CHART. CONTINUE PLAN OF CARE. BED LOCKED AND LOW. CALL LIGHT IN REACH. TWO SIDERAILS UP.
--- NOTE | 2016-06-13 15:51 | NUR ---
SLEEPING IN BED. AROUSES TO VOICE. UNIT 1 PRBC TRANSFUSING RT AC IV AT 75mL/HR. NO REACTIONS OBSERVED. BP-145/66, P-79, T-98.1, R-16. AT BEDSIDE. RT GROIN DRESSING CLEAN DRY, INTACT. FREE FROM BLEEDING. NO HEMATOMA. LEAVE TRANSFUSION RATE AT 75mL/HR. BED LOCKED AND LOW. CALL LIGHT IN REACH. TWO SIDERAILS UP.
--- NOTE | 2016-06-13 16:16 | NUR ---
LAYING FLAT IN BED. AT BEDSIDE. PRBC INFUSING. NO SIGNS OF ADVERSE REACTION. BP-134/66, T-98.1. DENIES SOB. CONSENTS SIGNED FOR TIPs PROCEDURE 06/14/16. CONSENTS PLACED ON CHART.
[2016-06-13 16:34] VITALS: BP 125/59
--- NOTE | 2016-06-13 19:03 | CN ---
PATIENT NAME:VIVI ALARCON MEDICAL RECORD: [id number] : 56 LOCATION:D. D.2127 ADMIT DATE: 06/12/16 ACCOUNT: [id number] CONSULTING PHYSICIAN: VONDA GARRETT MD REFERRING PHYSICIAN: ARBEN PIZARRO MD DATE OF CONSULTATION: 06/12/2016 REFERRING PHYSICIAN: Arben Pizarro MD. HISTORY OF PRESENT ILLNESS: The patient is a 56-year-old white female well known to me with end-stage renal disease on hemodialysis, was basically readmitted with [id number] anemia. I have been seeing this lady for the past several months now for the same issues. Please see full consultation done on 05/31/2016 for more details. The only change since her last admission was that she has now undergone a small bowel capsule endoscopy, which was done about a week ago. That exam was essentially unremarkable. It was somewhat incomplete and that the battery in the camera ran out roughly 85% to 90% through the study, so I did not see the terminal ileum/____ cecum. However, what I did see was absolutely no blood at all seen during the entire exam. I did see what looked like 4 questionable to possible to probable tiny AVMs scattered throughout the jejunum. Two of these were questionable, 1 was very small and 1 was of moderate size. None of which were bleeding at all and were of questionable clinical significance. The rest of exam was normal. She is also scheduled for a TIPS procedure in light of her history of cirrhosis and portal hypertension with Dr. Inocencio Barroso on Sunday. I was simply seen to asked, he will follow along with her. PAST MEDICAL HISTORY: As above. She has diabetes, hypertension, coronary artery disease status post stent placement, sleep apnea, neuropathy and restless legs syndrome. PAST SURGICAL HISTORY: Remarkable for cholecystectomy, hemorrhoidal surgery with Dr. Yoo. ALLERGIES: CLINDAMYCIN, DOXYCYCLINE, ERYTHROMYCIN. FAMILY HISTORY: Negative for GI diseases. SOCIAL HISTORY: The patient is a nonsmoker, nondrinker. REVIEW OF SYSTEMS: Noncontributory per HPI. HOME MEDICATIONS: Include erythropoietin and insulin, Protonix, allopurinol, Amitiza, Colace, Bumex, PhosLo, tramadol, Atarax, Requip, Lyrica, Paxil and hydrocodone. PHYSICAL EXAMINATION: GENERAL: Reveals a middle-aged white female in no acute distress. VITAL SIGNS: Stable. She is afebrile. CHEST: Clear. HEART: Regular rate and rhythm. ABDOMEN: Soft, nontender. CONSULT REPORT [id number] VIVI ALARCON EXTREMITIES: No edema. LABORATORY DATA: Reveals a hematocrit 15.5, MCV of 101, platelet count 100. Electrolytes are normal. Recent iron saturation 17%. Total bilirubin was 2, AST 30, ALT 12, alkaline phosphatase 80, albumin 2.2. B12 and folate levels were normal a few months ago as well as a TSH level ____. IMPRESSION: 1. Persistent recurrent macrocytic anemia with associated persistent problems with occasional scant hematochezia, still of unclear etiology, now status post small bowel capsule endoscopy as noted above. She also had a bone marrow exam by Dr. Booth in the past. 2. Probable cirrhosis of unclear etiology as noted on liver and spleen scan. She had a positive FIBROSpect as well. It is conceivable that her portal hypertensive gastropathy could be causing a slow "leak" from the gastrointestinal tract in either stomach, rectum or small bowel AVMs. 3. History of colon polyps. 4. History of hemorrhoids and anal fissure, status post banding and surgical intervention by Dr. Yoo. 5. History of end-stage renal disease on hemodialysis. RECOMMENDATION: 1. Okay to proceed with TIPS procedure with Dr. Barroso, Sunday. 2. The patient also has chronic constipation and I would recommend MiraLax and mineral oil daily. 3. Agree with transfusion of 3 units of blood. TRANSINT:[id number] Voice Confirmation ID: [id number] DOCUMENT ID: [id number] VONDA GARRETT MD at 1903 CC: ARBEN PIZARRO MD and RODY OBOTH MD [id number] DICTATION DATE: 06/12/16 1750 MANAGER PLANNING: 06/12/16 2338 ADM IN [facility] [address] [place] [address]
--- NOTE | 2016-06-13 19:36 | NUR ---
PRBCs FINISHED INFUSING, NO S/S ASVERSE REACTION NOTED. LINE FLUSHING WITH NS.
[2016-06-13 21:03] VITALS: BP 120/58
--- NOTE | 2016-06-13 21:17 | NUR ---
HS MEDS GIVEN, BS 208, COVERED PER S/S. NO LEVIMER GIVEN DUE PT BEING NPO AFTER MN FOR TIPS PROCEDURE. HS SNACK GIVEN, DENIES PAIN OR NEEDS, BED LOW, CL IN REACH.
[2016-06-14] VITALS (9 sets, daily range): BP systolic 144–177; BP diastolic 60–74
--- NOTE | 2016-06-14 00:18 | NUR ---
PATIENT PATHWAYS: NO CHANGES. PT USES [facility] FOR OPHD NEEDS. bmm DIALYSIS COORDINATOR
--- NOTE | 2016-06-14 01:20 | NUR ---
SECOND UNIT OF PRBCs FINSIHED INFUSING, NO ADVERSE REACTIONS NOTED. LINE FLUSHING WITH NS. WILL CONT TO MONITOR.
[2016-06-14 06:33] LABS: BASOPHILS 0.2 % (0.0-2.0); EOSINOPHILS 2.3 % (0-7); IMMATURE GRANULOCYTES 2.1 % (0-5); LYMPHOCYTES 26.1 % (15-50); MCH 31.4 pg (26.0-34.0); MCHC 33.3 g/dL (31.0-37.0); MCV 94.2 fL (80.0-100.0); MEAN PLATELET VOLUME 12.1 fL (7.4-10.4); MONOCYTES 8.2 % (2-11); NEUTROPHILS 61.1 % (40-80); PLATELET COUNT 107 10x3/uL (130-400); RDW 18.8 % (11.5-14.5); WBC 4.8 10x3/uL (4.8-10.8)
--- NOTE | 2016-06-14 06:47 | NUR ---
GONE TO DIALYSIS BY WC.
[2016-06-14 06:50] LABS: HEMATOCRIT 29.1 % (36.0-48.0); HEMOGLOBIN 9.7 g/dL (12-16); RBC 3.09 10x6/uL (4.00-5.40)
[2016-06-14 06:52] LABS: INR 1.21 (0.85-1.17); PROTIME 15.2 SECONDS (11.6-15.0)
[2016-06-14 07:20] LABS: ALBUMIN 2.4 g/dL (3.4-5.0); BILIRUBIN - TOTAL 1.48 mg/dL (0.2-1.3); CARBON DIOXIDE 26.3 mmol/L (21.0-32.0); CREATININE - SERUM 4.1 mg/dL (0.6-1.3); POTASSIUM - SERUM 4.3 mmol/L (3.5-5.1); PROTEIN - SERUM 7.1 g/dL (6.4-8.2)
--- NOTE | 2016-06-14 10:00 | NUR ---
ALERT AND ORIENTED X4. DENIES PAIN OR SOB. RETURN TO ROOM FROM DIALYSIS. 3.5L OFF DURING DIALYSIS. CONTINUE PLAN OF CARE. AT BEDSIDE. BED LOCKED AND LOW. CALL LIGHT IN REACH. TWO SIDERAILS UP.
--- NOTE | 2016-06-14 14:40 | NUR ---
SEDATED. AROUSE TO STIMULI. INCISION RT SIDE OF NECK DRESSING CLEAN DRY INTACT. AT BEDSIDE. DENIES SOB. BP-172/77, P-78, T-98.1, R-16. CONTINUE PLAN OF CARE. BED LOCKED AND LOW.CALL LIGHT IN REACH. TWO SIDERAILS UP.
--- NOTE | 2016-06-14 21:04 | NUR ---
HS MEDS GIVEN WITH DIET LEMON SHAGELUK SODA. BS 280, COVERED FOR S/S. ULTRACET 2 TABS GIVEN FOR C/O PAIN. HS SNACK PROVIDED.
--- NOTE | 2016-06-14 22:31 | NUR ---
SITTING UP IN BED WATCHING TV, DENIES NEEDS, AT BED SIDE, BED LOW, CL IN REACH.
[2016-06-15] VITALS: BP 157/70
--- NOTE | 2016-06-15 00:34 | NUR ---
PRICING CONSULTANT AT BEDSIDE TO OBTAIN VITALS, CALL LIGHT IN REACH. WILL CONTINUE WITH PLAN OF CARE.
[2016-06-15 04:00] VITALS: BP 153/60
--- NOTE | 2016-06-15 04:36 | NUR ---
IN BED WITH EYES CLOSED, RESPERATIONS EVEN, NO S/S DISTRESS NOTED. ASLEEP AT BED SIDE.
[2016-06-15 06:36] LABS: BASOPHILS 0.2 % (0.0-2.0); EOSINOPHILS 2.7 % (0-7); HEMATOCRIT 30.6 % (36.0-48.0); HEMOGLOBIN 10.1 g/dL (12-16); LYMPHOCYTES 21.7 % (15-50); MCH 31.6 pg (26.0-34.0); MCV 95.6 fL (80.0-100.0); MEAN PLATELET VOLUME 12.2 fL (7.4-10.4); MONOCYTES 11.2 % (2-11); NEUTROPHILS 63.2 % (40-80); PLATELET COUNT 104 10x3/uL (130-400); RDW 18.9 % (11.5-14.5); WBC 4.8 10x3/uL (4.8-10.8)
[2016-06-15 06:50] LABS: INR 1.19 (0.85-1.17)
[2016-06-15 06:59] LABS: ALBUMIN 2.3 g/dL (3.4-5.0); BILIRUBIN - TOTAL 1.25 mg/dL (0.2-1.3); CALCIUM 8.3 mg/dL (8.5-10.1); CREATININE - SERUM 3.8 mg/dL (0.6-1.3); MAGNESIUM - SERUM 2.2 mg/dL (1.8-2.4); PHOSPHOROUS 5.3 mg/dL (2.5-4.9); PROTEIN - SERUM 7.1 g/dL (6.4-8.2)
[2016-06-15 07:48] VITALS: BP 148/57
--- NOTE | 2016-06-15 08:06 | NUR ---
ASSESSMENT COMPLETED. O2 AT 2 L/M PER NC. RIGHT AC SL. RIGH CHESS HEMOSPLIT AND LEFT AVF. DRSG TO RIGHT JUGLAR. DENIES ANY NAAES. CALIGHT IN REACH WITH SR UP. WILL MONITOR
[2016-06-15 12:05] VITALS: BP 154/61
--- NOTE | 2016-06-15 15:32 | NUR ---
Is the patient Alert and Oriented? Yes 0 * How many steps to enter\exit or inside your home? 0 0 * PCP DR. FERNANDEZ IN [place] BUT DR. KIRKPATRICK MANAGES HER CARE 0 * Pharmacy [facility] IN [place] 0 * Preadmission Environment Home with Family 0 * ADLs Independent 0 * Equipment Bedside Commode CPAP Rolling Walker 0 * Other Equipment PATIENT HAS A CPAP PROVIDED BY [facility] 0 * List name and contact numbers for known caregivers / representatives who currently or will assist patient after discharge: SPOUSE: [place] ALARCON [phone] DAUGHTER: BRE [phone] * Community resources currently utilized None 0 * Additional services required to return to the preadmission environment? No 0 * Can the patient safely return to the preadmission environment? Yes 0 * Has this patient been hospitalized within the prior 30 days at any hospital? No 0 Grand Total: 0 PATIENT STATES SHE LIVES AT HOME WITH HER , [place]. HE WILL DRIVE HER HOME AT DISCHARGE. HER PCP IS DR. FERNANDEZ IN [place] AND THAT DR. KIRKPATRICK MANAGES HER CARE. PATIENT GETS HER MEDS FROM [facility] IN [place]. PATIENT STATES SHE HAS A WALKER, BSC TO ELEVATE HER TOILET. SHE HAS CPAP THAT IS PROVIDED BY [facility]. PATIENT HAD HOME HEALTH IN THE PAST WITH [facility]. THERE ARE NO STEPS TO ENTER HER HOME. PATIENT WAS GIVEN THE IMM AND EXPLAINED AND SIGNED COPY ON THE CHART.
[2016-06-15 15:53] VITALS: BP 142/55
--- NOTE | 2016-06-15 16:05 | NUR ---
LYING QUIETLY. DENIES ANY NEEDS. FAMILY AT BEDSIDE. WILL MONITOR
--- NOTE | 2016-06-15 19:44 | NUR ---
RESUMED CARE OF PT, SITTING ON SIDE OF BED RESPIRATIONS EVEN AND UNLABOREDON 2LPM VIA NC. RIGHT AC SALINE LOCKED. NO NEEDS VOICED AT THIS TIME. WILL CONTINUE TO MONITOR. PLAN OF CARE DISCUSSED. CALL LIGHT IN REACH. SEE NURSE ASSESSMENT.
[2016-06-15 20:00] VITALS: BP 156/54
[2016-06-16] VITALS: BP 130/58
[2016-06-16 05:49] LABS: BASOPHILS 0.3 % (0.0-2.0); EOSINOPHILS 1.5 % (0-7); HEMATOCRIT 28.5 % (36.0-48.0); HEMOGLOBIN 9.4 g/dL (12-16); IMMATURE GRANULOCYTES 0.8 % (0-5); LYMPHOCYTES 27.7 % (15-50); MCH 31.4 pg (26.0-34.0); MCV 95.3 fL (80.0-100.0); MEAN PLATELET VOLUME 11.8 fL (7.4-10.4); MONOCYTES 13.6 % (2-11); NEUTROPHILS 56.1 % (40-80); RBC 2.99 10x6/uL (4.00-5.40); RDW 18.5 % (11.5-14.5)
[2016-06-16 05:50] LABS: INR 1.23 (0.85-1.17); PLATELET COUNT 82 10x3/uL (130-400); PROTIME 15.4 SECONDS (11.6-15.0)
[2016-06-16 05:53] LABS: ANION GAP 12.2 mmol/L (8-16); CALCIUM 8.2 mg/dL (8.5-10.1); CARBON DIOXIDE 26.9 mmol/L (21.0-32.0); CREATININE - SERUM 4.5 mg/dL (0.6-1.3); PHOSPHOROUS 6.2 mg/dL (2.5-4.9); POTASSIUM - SERUM 4.1 mmol/L (3.5-5.1)
[2016-06-16 07:36] LABS: PLATELET ESTIMATE DECREASED
--- NOTE | 2016-06-16 08:19 | NUR ---
ASSESSMENT COMPLETED. O2 AT 2 L/M PER NC. RIGHT AC SL. LEFT AVF AND RIGHT LIANNE HEMOSPLIT. DENIES ANY NEEDS. FOR DIALYSIS TODAY
[2016-06-16 08:22] VITALS: BP 107/59
--- NOTE | 2016-06-16 10:20 | NUR ---
RESTING QUIETLY WATCHING TV DENIES ANY NEEDS AT THIS TIME NAD NOTED
[2016-06-16 12:42] VITALS: BP 138/51
--- NOTE | 2016-06-16 12:52 | NUR ---
Patient Name: VIVI ALARCON Encounter No: [id number] : 1960 Primary Insurance: [facility] Anticipated DC Date: Planned Disposition: Home External Planned Provider: : DCP follow-up note: Patient and family in agreement with discharge plan. No changes to plan. CM spoke with "Jaylen" at [facility] ([phone]) and notified of patient's discharge today. Per "Jaylen" patient will resume M-W-F chair time at 0700. Patient notified of above. Patient stated she has a walker at home and denies additional DME/HH needs at this time. Case management will follow and assist as needed. Rosy Schwab RN/RUSSEL
--- NOTE | 2016-06-16 14:49 | NUR ---
TO DIAYLIS PER BED.
--- NOTE | 2016-06-16 18:50 | NUR ---
PT DISCHARGED. IV DCD WITH TIP INTACT. TO PRIVATE CAR PER WHEELCHAIR
--- NOTE | 2016-06-20 08:17 | OP ---
PATIENT NAME: VIVI ALARCON MEDICAL RECORD: [id number] :56 LOCATION:D. D.2127 ADMISSION DATE:06/12/16 SURGEON: MARK CAMPOS M.D. DATE OF OPERATION: 06/13/2016 REFERRING PHYSICIAN: Pavan Lincoln MD. PROCEDURES PERFORMED: 1. Selective coronary angiography. 2. Left heart catheterization with ventriculogram. INDICATION: A 56-year-old woman with history of coronary artery disease presents with accelerating angina. EQUIPMENT USED: A 5-Turkmen JL4, Jose Alberto right, pigtail catheter. TECHNIQUE: A 5-Turkmen sheath was inserted in retrograde fashion in the right common femoral artery. Next, selective coronary angiography was performed in standard 5-Turkmen JL4 and Jose Alberto right. Left heart catheterization performed using pigtail catheter. CORONARY ANATOMY: 1. Left main: Left main trunk is moderate in caliber. It gives rise to the LAD and circumflex. It has no obstruction. 2. LAD: This is a moderate caliber vessel extending to the apex. The proximal mid vessel has been stented. The first diagonal branch in mid segment as well. All stents are widely patent. There is no evidence of restenosis. 3. Circumflex: This vessel is moderate in caliber. The proximal vessel has been stented. The stent is widely patent without evidence of restenosis. 4. Right coronary: This vessel is large in caliber and dominant. The proximal, mid and distal vessels have been stented. All stents are widely patent. The proximal segment in between the stents demonstrates a smooth 30% stenosis. 5. Left ventricle: Left ventricle is normal in size. No wall motion abnormalities are noted. Estimated ejection fraction is 50%. IMPRESSION: 1. Mild coronary artery disease with no evidence of restenosis. 2. Low normal left ventricular function. RECOMMENDATIONS: We will continue with medical management. TRANSINT:[id number] Voice Confirmation ID: [id number] DOCUMENT ID: [id number] MARK CAMPOS M.D. at 0817 CC: [id number] DICTATION DATE: 06/13/16 1357 RADIOLOGY PHYSICIAN ASSISTANT: 06/13/16 1826 DIS IN 06/16/16 [place] [address]
--- NOTE | 2016-06-26 07:11 | DS ---
PATIENT:VIVI ALARCON :56 MEDICAL RECORD: [id number] DISCHARGE SUMMARY ADMISSION DATE: 06/12/16 DISCHARGE DATE: 06/16/16 HISTORY OF PRESENT ILLNESS: Ms. Alarcon is a 56-year-old white female with end-stage renal disease, has chronic recurrent ascites, etiology unknown, as well as recurrent gastrointestinal bleeding, etiology unknown. She has been brought to the [facility] and outpatient [place] here and worked up and etiology of both of these issues are currently unclear. She was admitted with refractory anemia and continued ascites. Dr. James has done a full endoscopy as well as a capsular endoscopy, which essentially has been negative. She underwent transfusion here, recurrent dialysis and then underwent TIPS procedure, all of which to hopefully improve these other parameters. She tolerated her TIPS procedure well without difficulty, underwent acute dialysis without difficulty, and so we will continue her current aggressive supportive therapy as an outpatient. She was otherwise stable and back to baseline at the time of discharge post her TIPS procedure. DISCHARGE DIAGNOSES: 1. Chronic anemia. 2. Recurrent gastrointestinal bleeding. 3. Ascites with portal hypertension, etiology unclear. 4. End-stage renal disease. 5. Chronic dialysis. PLAN: The patient will be discharged today. After dialysis here, she will be on [facility] on Sunday. She will continue her renal diet and her ambulation as tolerated. Her blood ammonias will be followed as an outpatient on a p.r.n. basis. DISCHARGE MEDICATIONS: Lactulose 30 cc b.i.d., Epogen in the dialysis unit. She will be given her Levemir 55 at bedtime, Amitiza 8 b.i.d., PhosLo 2000 t.i.d., Requip 0.5 at bedtime, Paxil 10 q.a.m., Lyrica 50 daily, and Nikia p.r.n. TRANSINT:[id number] Voice Confirmation ID: [id number] DOCUMENT ID: [id number] RACHELLE KIRKPATRICK MD at 0711 CC: [id number] DICTATION DATE: 06/16/16 0841 AIRPLANE GAS TANK LINER ASSEMBLER: 06/17/16 0154 DIS IN 06/16/16 [place] [id number]
== END 2016-06-16 18:52 | disposition home or self-care (01) | DRG 405 ==
LOC: D.M2 04:08
PROVIDERS: Internal Medicine; Internal Medicine Cardiovascular Disease; Radiology Vascular & Interventional Radiology; ADMIT Internal Medicine Nephrology
PROC: 5A1D60Z (ICD-10-PCS; 2016-06-12)
PROC: 06183DY (ICD-10-PCS; 2016-06-13)
PROC: B2151ZZ Fluoroscopy of Left Heart using Low Osmolar Contrast (ICD-10-PCS; 2016-06-13)
PROC: 4A023N7 Measurement of Cardiac Sampling and Pressure, Left Heart, Percutaneous Approach (ICD-10-PCS; 2016-06-13)
PROC: B2111ZZ Fluoroscopy of Multiple Coronary Arteries using Low Osmolar Contrast (ICD-10-PCS; principal; 2016-06-13 13:00)
PROC: 06183DY (ICD-10-PCS; 2016-06-14)
DX: K76.6 Portal hypertension (principal); N18.6 End stage renal disease; D61.9 Aplastic anemia, unspecified; I12.0 Hypertensive chronic kidney disease with stage 5 chronic kidney disease or end stage renal disease; E87.1 Hypo-osmolality and hyponatremia; I25.119 Atherosclerotic heart disease of native coronary artery with unspecified angina pectoris; D50.9 Iron deficiency anemia, unspecified; K31.89 Other diseases of stomach and duodenum; K74.60 Unspecified cirrhosis of liver; E11.22 Type 2 diabetes mellitus with diabetic chronic kidney disease; Z99.2 Dependence on renal dialysis; K59.09 Other constipation

== ENCOUNTER 2016-06-23 11:47 | Inpatient (IN) | payer OTHER, MEDICARE ==
[~2016-06-23] VITALS: Ht 170.2 cm; Wt 106.8 kg
[2016-06-23] VITALS (12 sets, daily range): BP systolic 107–163; BP diastolic 39–83
--- NOTE | 2016-06-23 11:30 | NUR ---
RECIEVED TO ROOM VIA EMS. ASSESSMENT COMPLETE VSS WITH NO DISTRESS ON ARIVAL.
--- NOTE | 2016-06-23 12:15 | NUR ---
CONSENT TO CHART FOR EGD TODAY WITH GERRY
--- NOTE | 2016-06-23 12:15 | NUR ---
FINGERSTICK BLOOD SUGAR OF 187 COVERED WITH 2 UNITS REG INSULIN. PATIENT UP TO CHAIR IN ROOM WITH LUNCH SET UP
--- NOTE | 2016-06-23 12:58 | NUR ---
FINGERSTICK BLOOD SUGAR OF [address] VERAS. NO NEW ORDERS AT THIS TIME
--- NOTE | 2016-06-23 13:18 | NUR ---
NEW ORDERS RECIEVED FROM DR VERAS AND DR GARRETT
--- NOTE | 2016-06-23 13:35 | NUR ---
ULTRASOUND IN PROGRESS
[2016-06-23 14:00] LABS: BASOPHILS 0.2 % (0.0-2.0); EOSINOPHILS 1.6 % (0-7); HEMATOCRIT 21.3 % (36.0-48.0); IMMATURE GRANULOCYTES 0.6 % (0-5); LYMPHOCYTES 27.3 % (15-50); MCH 32.1 pg (26.0-34.0); MCHC 32.4 g/dL (31.0-37.0); MCV 99.1 fL (80.0-100.0); MEAN PLATELET VOLUME 11.7 fL (7.4-10.4); NEUTROPHILS 63.3 % (40-80); PLATELET COUNT 95 10x3/uL (130-400); RBC 2.15 10x6/uL (4.00-5.40); RDW 18.3 % (11.5-14.5)
[2016-06-23 14:00] LABS: INR 1.31 (0.85-1.17); PROTIME 16.2 SECONDS (11.6-15.0)
[2016-06-23 14:07] LABS: HEMOGLOBIN 6.9 g/dL (12-16)
[2016-06-23 14:16] LABS: ANION GAP 13.4 mmol/L (8-16); CALCIUM 8.6 mg/dL (8.5-10.1); CARBON DIOXIDE 27.4 mmol/L (21.0-32.0); CREATININE - SERUM 4.9 mg/dL (0.6-1.3); MAGNESIUM - SERUM 1.9 mg/dL (1.8-2.4); PHOSPHOROUS 4.6 mg/dL (2.5-4.9); POTASSIUM - SERUM 4.8 mmol/L (3.5-5.1)
--- NOTE | 2016-06-23 15:00 | NUR ---
FIRST UNIT OF PRBC'S UP TO INFUSE VSS WITH PAIN DENIED.
--- NOTE | 2016-06-23 15:15 | NUR ---
NO ADVERSE REACTION VSS WITH BLOOD INFUSING ORDERED AT SIDE
--- NOTE | 2016-06-23 16:00 | NUR ---
16 FR NG TUBE TO R/NARE PLACEMENT CONFIRMED TAPED AND SECURED IN PLACE ICE WATER LAVAGE STARTED ORDERED. 1000 CC WITH 1000 CC RETURN OF PINK TINGED FLUID. BLOOD CONTINUES TO INFUSE WITH NO ADVERSE REACTION
--- NOTE | 2016-06-23 16:30 | NUR ---
SECOND IV STARTED TO R/WRIST WITH 22 GA. IV PEPCID GIVEN WITH LR UP TO GRAVITY FOR DR GERRY GROSS. STAFF AT BEDSIDE EKG COMPLETE BLOOD CONTINUES TO INFUSE ORDERED
--- NOTE | 2016-06-23 18:17 | NUR ---
FIRST UNIT COMPLETE LINE FLUSHED NS SECOND UNIT OF PRBC'S UP TO INFUSE NO DISTRESS VSS
--- NOTE | 2016-06-23 19:15 | NUR ---
RECEIVED CARE OF PT, ASSESSMENT PER FLOWSHEET. PT ORIENTED X 4, ON 2L O2 VIA NC, BREATH SOUNDS DIMINISHED IN BASES, HR SR ON CM AT A RATE OF 70, PPP, LT ARM FISTULA NOTED, PALPABLE THRILL, PRBC'S INFUSING TO RT AC PIV, PT DENIES ANY PAIN. ASSISTED TO COMFORTABLE POSITION SUPPORTED WITH PILLOWS, CALL LIGHT IN REACH, BED LOW.
--- NOTE | 2016-06-23 21:10 | NUR ---
PT IN FOR VISITATION, PT CONVERSING EASILY IN NO APPARENT DISTRESS, CUP OF ICE PROVIDED PER REQUEST, VSS, CONT TO MONITOR.
--- NOTE | 2016-06-23 23:15 | NUR ---
REASSESSMENT PER FLOWSHEET, NO ACUTE CHANGES NOTED AT THIS TIME, VSS, CONT POC.
[2016-06-24] VITALS (10 sets, daily range): BP systolic 122–165; BP diastolic 51–73; Ht 170.2 cm; Wt 106.8 kg
--- NOTE | 2016-06-24 00:50 | NUR ---
SECOND OF 2 UNITS OF PRBC'S INITIATED PER PARAMETERS TO TREAT HCT OF 25.5, WILL MONITOR CLOSELY.
--- NOTE | 2016-06-24 03:15 | NUR ---
REASSESSMENT PER FLOWSHEET, NO ACUTE CHANGES NOTED, PT DENIES ANY NEEDS, CONT TO MONITOR.
--- NOTE | 2016-06-24 05:35 | NUR ---
PT RESTING IN BED WITH EYES CLOSED, VSS, CONT POC.
--- NOTE | 2016-06-24 08:05 | NUR ---
FAVIO CRAWLEY, RENAL AT BEDSIDE FOR ASSESSMENT - PT MAY BE TRANSFERRE TO FLOOR - PT DENIED ANY DISCOMFORT EXCEPT ABD TENDERNESS - TEMP OF 102.2 NOTIFIED INVESTMENTS MANAGER. AWAITING ORDERS
[2016-06-24 12:22] LABS: BASOPHILS 0.1 % (0.0-2.0); EOSINOPHILS 1.1 % (0-7); HEMATOCRIT 28.1 % (36.0-48.0); IMMATURE GRANULOCYTES 0.2 % (0-5); LYMPHOCYTES 13.6 % (15-50); MCH 31.6 pg (26.0-34.0); MCHC 32.7 g/dL (31.0-37.0); MEAN PLATELET VOLUME 12.4 fL (7.4-10.4); MONOCYTES 5.6 % (2-11); NEUTROPHILS 79.4 % (40-80); PLATELET COUNT 78 10x3/uL (130-400); RDW 19.8 % (11.5-14.5)
[2016-06-24 12:26] LABS: HEMOGLOBIN 9.2 g/dL (12-16); MCV 96.6 fL (80.0-100.0); RBC 2.91 10x6/uL (4.00-5.40); WBC 8.7 10x3/uL (4.8-10.8)
--- NOTE | 2016-06-24 13:01 | NUR ---
0921 - ORTHO/NOVUM IS NOT PT'S HOME MED - CONACTED PHARMD - NOT AVABLE 7891 CONTACTED FAVIO CRAWLEY - RENAL - TO INFORM RX IS NOT AVAILABLE UNTIL Sunday06/26/16 - INSTRUCTED TO CALL [facility] - DR KELLOGG - 10:12 PAGED [facility] SPEECH CORRECTION ASSISTANT - [place] CALL BACK 11:[address] RODNEY - INSSTRUCTED TO ALLOW PHARMACY TO SUBSITUE TALKED TO [facility] - NO OTHER SUBSTITUTE TEMP AT 10:30 100.2 1230 ADMISSION ASSESSMENT AND ADULT HISTORY QUESTIONS ASKED PT PRIOR TO TRANFER TO 2129 1245 - HOUSE SUPERVIOR INSTRUCTED THIS RN TO COMPLETE MUCH P OSSIBLE TO TRANSFER TO FLOOR. 1310 CALLED REPORT TO
[2016-06-24 13:14] LABS: ANION GAP 15.6 mmol/L (8-16); BILIRUBIN - DIRECT 0.8 mg/dL (0.00-0.30); BILIRUBIN - INDIRECT 1.1 mg/dL (0.00-1.00); BILIRUBIN - TOTAL 1.9 mg/dL (0.2-1.3); CALCIUM 7.8 mg/dL (8.5-10.1); CARBON DIOXIDE 21.4 mmol/L (21.0-32.0); CREATININE - SERUM 5.5 mg/dL (0.6-1.3); PROTEIN - SERUM 6.2 g/dL (6.4-8.2)
--- NOTE | 2016-06-24 13:34 | NUR ---
SANJEEV ALEJANDRA AT 161 - RECHECKED STAT LAB - RECHECK AT 151 - PAGED DR LOVE - INSTRUCTED TO ORDER 30ML LACTULOSE TID - BLOOD SUGAR [address] VALDES - AWAITING CALL BACK
--- NOTE | 2016-06-24 13:48 | NUR ---
REPORTED TO DENISA Blanca BLOOD SUGAR REPORTED - NO NEW ORDERS OKAY TO TRANSFER TO THE FLOOR.
--- NOTE | 2016-06-24 14:09 | NUR ---
RECEIVED PT VIA WHEELCHAIR FROM ICU NURSE BETSY. PT IS ALERT AND ORIENTED. ON ON 02 AT 2L VIA NC. AVF SEEN TO LEFT ARM (LEFT ARM RESERVE) THAT IS IMMATURE PER REPORT. HEMOSPLIT SEEN TO RIGHT SIDE OF CHEST AREA, PT IS SUPPOSE TO DIALYZE TONIGHT PER ICU NURSE. LUNGS ARE CLEAR BILATERAL. PT IS IN NO SIGN OF DISTRESS. BOWELS ARE ACTIVE X 4 QUADRANTS. DRY, RED SKIN SEEN TO BILATERAL LOWER EXTREMITIES. BRUISES SEEN TO ABDOMINAL AREA AND BILATERAL ARMS. IV SEEN TO TO RIGHT AC THAT IS CURRENTLY SALINE LOCKED. SECOND IV SEEN TO RIGHT WRIST WITH PROTONIX RUNNING AT 10CC/HR. IS AT BEDSIDE. NO NEED AT CURRENT TIME. WILL CONTINUE TO MONITOR AND AWAIT NEW ORDERS.
--- NOTE | 2016-06-24 14:09 | NUR ---
133- RECEIVED REPORT FROM ICU NURSE BETSY. WILL AWAIT PTS ARRIVAL.
--- NOTE | 2016-06-24 14:40 | NUR ---
HCT IS 28.1 NO NEED TO TRANFUSE AT THIS TIME PER ORDERS. WILL CONTINUE TO MONITOR.
--- NOTE | 2016-06-24 18:42 | NUR ---
PT SITTING UP ON SIDE OF BED AWAITING TO GO TO DIALYSIS. NO NEED AT CURRENT TIME. WILL CONTINUE TO MONITOR.
--- NOTE | 2016-06-24 19:00 | NUR ---
PT TAKEN DOWN BY WHEELCHAIR FOR HEMODIALYSIS.
--- NOTE | 2016-06-24 23:17 | NUR ---
PT RETURNED FROM DIALYSIS TO ROOM. ALERT/ORIENTED. VSS. CPOC.
[2016-06-25 00:12] VITALS: BP 110/65
--- NOTE | 2016-06-25 00:21 | NUR ---
AFTER RETURNING FROM DIALYSIS, PT IS VERY TIRED/SHAKY AND WITH UNSTEADY GAIT. IS SUPER HELPFUL, BUT ALSO HOVERS TO THE POINT THAT STAFF HAS TROUBLE CARRYING OUT NEEDED INTERVENTIONS. ADMINISTERED CHRONULAC, RESTARTED PROTONIX DRIP AT 10ML/HR AND PT IS NOW IN BED AND READY TO SLEEP. SPOUSE STAYING AT BEDSIDE.
--- NOTE | 2016-06-25 01:48 | NUR ---
PT RESTING IN BED WITH NO DISTRESS. IV PROTONIX INFUSING AT 10ML/HR TO RIGHT FOREARM. ALSO HAS SECOND SALINE LOCK TO RIGHT A/C.. LAST HCT 30.7. STAYING AT BEDSIDE AND PROVIDES ASSISTANCE WITH PT'S ADLS'/DRESSING/GOING TO THE BATHROOM. FSBS UPON RETURN FROM DIALYSIS WAS 127. CPOC.
[2016-06-25 04:00] VITALS: BP 110/67
[2016-06-25 06:05] LABS: BASOPHILS 0.1 % (0.0-2.0); EOSINOPHILS 0.9 % (0-7); HEMATOCRIT 29.6 % (36.0-48.0); HEMOGLOBIN 9.5 g/dL (12-16); IMMATURE GRANULOCYTES 0.4 % (0-5); LYMPHOCYTES 14.2 % (15-50); MCH 31.1 pg (26.0-34.0); MCHC 32.1 g/dL (31.0-37.0); MEAN PLATELET VOLUME 12.2 fL (7.4-10.4); NEUTROPHILS 78.4 % (40-80); PLATELET COUNT 84 10x3/uL (130-400); RBC 3.05 10x6/uL (4.00-5.40); RDW 19.1 % (11.5-14.5)
[2016-06-25 06:33] LABS: ALBUMIN 2.1 g/dL (3.4-5.0); BILIRUBIN - TOTAL 2.31 mg/dL (0.2-1.3); CALCIUM 7.7 mg/dL (8.5-10.1); PROTEIN - SERUM 6.7 g/dL (6.4-8.2)
[2016-06-25 06:34] LABS: CARBON DIOXIDE 30.6 mmol/L (21.0-32.0); CREATININE - SERUM 3.4 mg/dL (0.6-1.3); POTASSIUM - SERUM 3.6 mmol/L (3.5-5.1)
--- NOTE | 2016-06-25 07:50 | NUR ---
AM ROUNDING- RECEIVED REPORT FROM LIVESTOCK HANDLER NURSE AARON LPN. PT IS CURRENTLY LAYING IN BED ON BACK WITH EYES CLOSED RESTING. IS AT BEDSIDE. ON MONITOR SHOWING SR, HR 77. FSBS ACHS, 201 THIS AM THAT WAS COVERED BY LIVESTOCK HANDLER NURSE AARON. RESERVE LEFT ARM FOR AVF, PT DIALYZED YESTERDAY NIGHT. RIGHT CHEST HEMOSPLIT SEEN. IV SEEN TO RIGHT WRIST THAT HAS PROTONIX AT 10CC/HR. SECOND IV SEEN TO RIGHT AC THAT IS CURRENTLY SALINE LOCKED. ON ROOM AIR. PER REPORT FROM LIVESTOCK HANDLER NURSE AARON, PT USES 02 AT 2L VIA NC WHEN NEEDED. NO NEED AT CURRENT TIME. WILL CONTINUE TO MONITOR AND CONTINUE WITH PLAN OF CARE.
[2016-06-25 08:40] VITALS: BP 136/47
--- NOTE | 2016-06-25 13:48 | NUR ---
LAB CALLED TO INFORM ME THAT PTS AMMONIA LEVEL IS CRITICAL (110). DR. VERAS ON UNIT. NOTIFIED HIM OF THIS. NO NEW ORDERS RECEIVED. WILL CONTINUE TO MONITOR.
[2016-06-25 13:55] VITALS: BP 144/56
--- NOTE | 2016-06-25 15:23 | NUR ---
D/C PROTONIX DRIP ORDERED.
[2016-06-25 15:58] VITALS: BP 152/53
--- NOTE | 2016-06-25 16:29 | NUR ---
MARIANA DIAMOND NP TO INFORM HER OF PTS BLOOD SUGAR ORDERED BY SLIDING SCALE. PTS BLOOD SUGAR IS CURRENTLY 423. WILL AWAIT CALLBACK AND CONTINUE TO MONITOR.
--- NOTE | 2016-06-25 16:31 | NUR ---
RECEIVED CALLBACK FROM JESUS DIAMOND APN. INFORMED HER OF PTS BLOOD SUGAR (423). NEW ORDERS RECEIVED. WILL CONTINUE TO MONITOR.
--- NOTE | 2016-06-25 17:51 | NUR ---
PT SITTING UP IN CHAIR EATING DINNER. IS AT BEDSIDE. NO NEED AT CURRENT TIME. WILL CONTINUE TO MONITOR.
--- NOTE | 2016-06-25 19:44 | NUR ---
RESTING IN BED. SR PER TELEMETERY. RIGHT CW HEMOSPLIT, RESERVE LEFT ARM FOR AVF. 2 PIVS TO RFA AND RIGHT A/C. AT BEDSIDE. SEE ASSESSMENT. CPOC.
[2016-06-25 20:15] VITALS: BP 190/57
--- NOTE | 2016-06-25 23:49 | NUR ---
PT HAS HAD HER HAIR WASHED IN THE SINK BY HER AND IS NOW TAKING A SHOWER WITH HIS ASSISTANCE. BED LINENS CHANGED. REMOVED LOWER RFA PIV THAT WAS SORE AND SWOLLEN. APPLIED SMALL PRESSURE DRESSING TO AREA TO KEEP IT FROM BLEEDING, THEN HAD TO APPLY ANOTHER DRESSING ONCE SHE STOPPED BLEEDING AND GAVE HER AN ICE PACK TO PLACE ON HER ARM. SHE STILL HAS RIGHT A/C SALINE LOCK. STAYING AT BEDSIDE. NO OTHER NEEDS AT THIS TIME.
[2016-06-26 02:31] VITALS: BP 190/54
[2016-06-26 04:45] VITALS: BP 158/64
[2016-06-26 04:46] LABS: BASOPHILS 0.3 % (0.0-2.0); HEMATOCRIT 30.1 % (36.0-48.0); HEMOGLOBIN 9.8 g/dL (12-16); IMMATURE GRANULOCYTES 0.4 % (0-5); LYMPHOCYTES 16.7 % (15-50); MCH 31.6 pg (26.0-34.0); MCHC 32.6 g/dL (31.0-37.0); MCV 97.1 fL (80.0-100.0); MEAN PLATELET VOLUME 12.6 fL (7.4-10.4); MONOCYTES 11.4 % (2-11); NEUTROPHILS 68.2 % (40-80); PLATELET COUNT 84 10x3/uL (130-400); RDW 18.6 % (11.5-14.5); WBC 7.3 10x3/uL (4.8-10.8)
[2016-06-26 05:05] LABS: ALBUMIN 2.3 g/dL (3.4-5.0); ANION GAP 12.7 mmol/L (8-16); BILIRUBIN - TOTAL 2.01 mg/dL (0.2-1.3); CALCIUM 7.8 mg/dL (8.5-10.1); CREATININE - SERUM 4.2 mg/dL (0.6-1.3); POTASSIUM - SERUM 3.7 mmol/L (3.5-5.1); PROTEIN - SERUM 7.6 g/dL (6.4-8.2)
[2016-06-26 07:58] VITALS: BP 177/69
[2016-06-26 11:48] VITALS: BP 127/70
--- NOTE | 2016-06-26 15:30 | NUR ---
ALERT AND ORIENTED X4. TAKEN TO DIALYSIS VIA WHEELCHAIR. DENIES PAIN OR SOB. SINUS RHYTHM 75bpm ON TELEMETRY. CONTINUE PLAN OF CARE AND SAFETY PRECAUTIONS.
--- NOTE | 2016-06-26 17:17 | PRO ---
PATIENT:VIVI ALARCON MEDICAL RECORD: [id number] : 56 LOCATION:D.M2 D.2130 ADMISSION DATE: 06/23/16 PROCEDURE PERFORMED BY: VONDA JAMES MD DATE OF PROCEDURE: 06/23/2016 UPPER INSPECTOR: Vonda James MD PROCEDURE: EGD with cauterization of 4 AVMs in the stomach. INDICATION: The patient is a 56-year-old white female with history of coronary artery disease, diabetes, end-stage renal disease, on hemodialysis, who was admitted with 2 days history of nausea followed by an episode of vomiting followed by mild hematemesis. We have been following her for several months because of chronic anemia and a heme-positive stool. She has had a normal EGD other than portal hypertensive gastropathy in the past. She had a small bowel capsule endoscopy, which was normal other than a couple of AVMs in the jejunum that were not bleeding. Her colonoscopy was normal other than some very mild hemorrhoidal changes and 1 diminutive polyp, which was removed. She was found to have probable cirrhosis and underwent a TIPS this last week to see if that might help her transfusion requirements. She has done fairly well until the above presentation. She is already status post cholecystectomy. She does have chronic constipation and has been told to be on MiraLax daily though she has not been doing that. She is now for EGD. PREMEDICATION: Taper anesthesia. INSTRUMENT: Olympus video gastroscope. FINDINGS: The endoscope was passed through the oropharynx to the second portion of the duodenum without difficulty. The esophagus was normal. There was no Katie-Medina tear and no varices seen. The stomach was entered and was remarkable for moderate diffuse portal hypertensive gastropathy. She did have a very slight amount of blood in the prepyloric area due to 4-5 AVMs in the distal antrum/prepyloric area. I therefore cauterized these with a gold probe using 30 joules with good results. The duodenum was entered and was completely normal. The patient tolerated the procedure well without any immediate complication. IMPRESSION: 1. Moderate diffuse portal hypertensive gastropathy due to her known cirrhosis and portal hypertension. 2. 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 3. Otherwise, normal esophagogastroduodenoscopy. RECOMMENDATIONS: 1. I am going to go ahead and start her on Ortho-Novum /50 every day, which has been shown to decrease bleeding from AVMs in the past. 2. If she continues to have problems with bleeding from AVMs, we might need to consult Dr. Douglass to see if he can try argon laser therapy of these AVMs. 3. Check KUB to rule out obstipation and see if that could have been contributing to her nausea for over the past couple of days. 4. Okay to advance diet and move to the floor from a GI standpoint. PROCEDURE NOTE [id number] ALARCONVIVI TRANSINT:[id number] Voice Confirmation ID: [id number] DOCUMENT ID: [id number] VONDA JAMES MD at 1717 CC: RACHELLE DOUGLASS MD and MELLISA VERAS MD [id number] DICTATION DATE: 06/23/16 1746 HAND DRILLER: 06/24/16 0552 [facility] [place] [id number] [place] [id number]
--- NOTE | 2016-06-26 17:17 | CN ---
PATIENT NAME:VIVI ALARCON MEDICAL RECORD: [id number] : 56 LOCATION:D. D.2130 ADMIT DATE: 06/23/16 ACCOUNT: [id number] CONSULTING PHYSICIAN: VONDA GARRETT MD REFERRING PHYSICIAN: ОЛЕГ VERAS MD DATE OF CONSULTATION: 06/23/2016 Gastroenterology Consultation REFERRING PHYSICIAN: Олег Veras MD HISTORY OF PRESENT ILLNESS: The patient is a 56-year-old white female well known to me with end-stage renal disease on hemodialysis, basically readmitted with qeuqk-tg-klvblal anemia, now on episode of hematemesis. I have been seen this lady for the past several months for similar issues. Please see full consultation note done on 05/31/2016 for more details. Postoperative changes since her last admission was that she has now undergone a small bowel capsule endoscopy, which was done about 2-3 weeks ago, which was essentially unremarkable with the exception of that, it was somewhat incomplete in that the battery became ran out roughly 85%-90% for the study. I therefore did not see the terminal ileum or ileal or proximal cecum. However, what I did see, was that there was absolutely no blood at all seen during the entire exam. It did look like she had four questionable to possible to probable tiny AVM scattered throughout the jejunum. Two of these were questionable. One was very small and one was a moderate size. None of which were bleeding and were questionable clinical significance. The rest of exam was normal. She underwent a TIPS procedure on 06/16/2016 in light of her history of cirrhosis and portal hypertension. It was done by Dr. Inocencio Barroso. She did well after that procedure and hematocrit seemed to stabilize and was discharged home. She now presents with the above symptomatology. PAST MEDICAL HISTORY: As above. She also has diabetes, hypertension, coronary artery disease, status post stent placement, sleep apnea, peripheral neuropathy and restless legs syndrome. PAST SURGICAL HISTORY: For cholecystectomy and hemorrhoidal surgery by Dr. Yoo. ALLERGIES: CLINDAMYCIN, DOXYCYCLINE, AND ERYTHROMYCIN. FAMILY HISTORY: Negative for GI disease. SOCIAL HISTORY: The patient is a nonsmoker, nondrinker. REVIEW OF SYSTEMS: Noncontributory other than HPI. HOME MEDICATIONS: I believe include Requip, tramadol, Bumex, PhosLo, Amitiza, Atarax, Paxil, Colace, Lyrica, Levemir, Zyrtec and NovoLog. She denies being on NSAIDs or blood thinners. PHYSICAL EXAMINATION: GENERAL: Reveals a middle-aged white female in minimal distress. VITAL SIGNS: Stable. She is afebrile. CONSULT REPORT [id number] VIVI ALARCON CHEST: Clear. HEART: Regular rate and rhythm. ABDOMEN: Soft, nontender. EXTREMITIES: No edema. LABORATORY DATA: Reveals a white count of 5000, hematocrit 21, MCV of 99, platelet count 95,000. Electrolytes are normal. BUN 58, creatinine 4.9. INR is 1.3. IMPRESSION: 1. New onset hematemesis of unclear etiology. She has had an EGD in the past, which was unremarkable. 2. Persistent recurrent macrocytic anemia with associated persistent problems with occasional scant hematochezia, still unclear etiology, now status post small bowel capsule endoscopy and TIPS procedure. Of note, that she has also had a bone marrow exam by Dr. Booth in the past. 3. Probable cirrhosis of unclear etiology as noted on liver, spleen scan. She also had a positive FIBROSpect study as well. It is conceivable that her portal hypertensive gastropathy could have been causing a slow "leak" from the gastrointestinal tract or either in her stomach, rectum or small bowel AVMs. 4. History of colon polyps. 5. History of hemorrhoids and anal fissure, status post banding and surgical intervention by Dr. Yoo. 6. History of end-stage renal disease on hemodialysis. RECOMMENDATIONS: 1. Transfuse packed red blood cells. 2. IV Protonix. 3. Doppler ultrasound of her TIPS shunt to ensure patency. 4. EGD later today. TRANSINT:[id number] Voice Confirmation ID: [id number] DOCUMENT ID: [id number] VONDA GARRETT MD at 1717 CC: ОЛЕГ VERAS MD [id number] DICTATION DATE: 06/23/16 170 COUNTY ATTORNEY: 06/23/16 2016 ADM IN [place] [id number] [place] [address]
--- NOTE | 2016-06-26 20:03 | NUR ---
ASSESSMENT DONE. PT SITTING UP ON SIDE OF BED. A/O. NO DISTRESS NOTED. C/O FATIGUE, PT IS JUST GETTING BACK TO ROOM FROM DIALYSIS. SPOUSE AT BEDSIDE. PT DENIES NEEDS AT THIS TIME. CALL LIGHT WITH IN REACH. WILL CONT. TO MONITOR.
--- NOTE | 2016-06-26 20:56 | NUR ---
PT UP IN SHOWER. NURSE WILL RETURN TO GIVE MEDS AND CHECK BLOOD SUGAR WHEN PT IS OUT. SPOUSE IN ROOM ASSISTING PT.
[2016-06-26 21:02] VITALS: BP 149/54
[2016-06-27 00:14] VITALS: BP 148/54
--- NOTE | 2016-06-27 00:54 | NUR ---
TEXTILE STYLIST AT BEDSIDE, NEEDS ADDRESSED AT THIS TIME. CALL LIGHT IN REACH. WILL CONT TO MONITOR.
--- NOTE | 2016-06-27 02:45 | NUR ---
PT SLEEPING. APPEARS COMFORTABLE. RESP EVEN AND UNLABORED. SPOUSE AT BEDSIDE. CALL LIGHT WITH IN REACH. WILL CONT. TO MONITOR.
[2016-06-27 05:11] VITALS: BP 122/47
[2016-06-27 05:15] LABS: BASOPHILS 0.2 % (0.0-2.0); EOSINOPHILS 3.2 % (0-7); HEMATOCRIT 27.2 % (36.0-48.0); HEMOGLOBIN 8.7 g/dL (12-16); IMMATURE GRANULOCYTES 0.5 % (0-5); LYMPHOCYTES 25.2 % (15-50); MCH 31.2 pg (26.0-34.0); MCV 97.5 fL (80.0-100.0); MEAN PLATELET VOLUME 12.2 fL (7.4-10.4); MONOCYTES 13.6 % (2-11); NEUTROPHILS 57.3 % (40-80); PLATELET COUNT 77 10x3/uL (130-400); RBC 2.79 10x6/uL (4.00-5.40); RDW 17.9 % (11.5-14.5)
[2016-06-27 05:29] LABS: INR 1.3 (0.85-1.17); PROTIME 16.1 SECONDS (11.6-15.0); WBC 4.1 10x3/uL (4.8-10.8)
[2016-06-27 06:00] LABS: ANION GAP 12.9 mmol/L (8-16); BILIRUBIN - TOTAL 1.5 mg/dL (0.2-1.3); CALCIUM 7.9 mg/dL (8.5-10.1); CARBON DIOXIDE 25.5 mmol/L (21.0-32.0); CREATININE - SERUM 3.4 mg/dL (0.6-1.3); POTASSIUM - SERUM 3.4 mmol/L (3.5-5.1); PROTEIN - SERUM 6.9 g/dL (6.4-8.2)
[2016-06-27 07:56] VITALS: BP 137/52
[2016-06-27] MEDS ORDERED: LEVAQUIN250 MG PO (12:09)
[2016-06-27] MEDS ORDERED: NECON 1/501 TAB PO (12:11)
--- NOTE | 2016-06-27 13:02 | NUR ---
ALERT AND ORIENTED X4. DC RT AC IV TIP INTACT. DISCHARGE INSTRUCTIONS GIVEN VERBALLY AND WRITTEN. WRITTEN PRESCRIPTIONS PROVIDED. DISCHARGE PAPERS SIGNED ON CHART. ESCORT TO RIDE VIA WHEELCHAIR. REMAINS FREE FROM INJURY.
--- NOTE | 2016-06-27 14:00 | NUR ---
Patient Name: VIVI ALARCON Admission Status: Elective Accout number: [id number] Admission Date: 06-23-2016 : 1960 Admission Diagnosis:HEMATEMESIS Attending: TERESA Current LOS: 4 Anticipated DC Date: 06-27-2016 Planned Disposition: Home Primary Insurance: [facility] LATE ENTRY: Discharge Planning Comments: * Is the patient Alert and Oriented? Yes 0 * How many steps to enter\exit or inside your home? NONE 0 * PCP [facility] IN [place] 0 * Pharmacy [facility] IN [place] 0 * Preadmission Environment Home with Family 0 * ADLs Independent 0 * Equipment CPAP Walker 0 * Other Equipment [facility] - MEDICAL EQUIPMENT PROVIDER 0 * List name and contact numbers for known caregivers / representatives who currently or will assist patient after discharge: [place] ALARCON, SPOUSE, 0 * Community resources currently utilized Other 0 * Please name any agencies selected above. OUTPATIENT DIALYSIS, [facility], M/W/F, 0600AM, FAMILY PROVIDES TRANSPORTATION 0 * Additional services required to return to the preadmission environment? No 0 * Can the patient safely return to the preadmission environment? Yes 0 * Has this patient been hospitalized within the prior 30 days at any hospital? Yes 0 CM MET WITH PT AND SPOUSE IN ROOM TO DISCUSS DISCHARGE PLANNING AND NEEDS. PT REPORTS LIVING AT HOME INDEPENDENTLY WITH HER SPOUSE. PT HAS CPAP AND WALKER FROM [facility]. PT HAS NO OUTSIDE SERVICES ASSISTING IN THE HOME. PT HAS DIALYSIS AT THE [facility] ON M/W/F, 0600 AM AND HER TRANSPORT TO AND FROM DIALYSIS. CM DISCUSSED AVAILABILITY OF HOME HEALTH, REHAB SERVICES AND MEDICAL EQUIPMENT. PT DENIES DISCHARGE NEEDS, REPORTS HER SPOUSE IS HERE TO PICK HER UP FOR DISCHARGE HOME TODAY. IMPORTANT MESSAGE FROM MEDICARE PROVIDED AND EXPLAINED. Truck Leasing Manager: Emiliano Velasco
--- NOTE | 2016-06-29 07:29 | DS ---
PATIENT:VIVI ALARCON :56 MEDICAL RECORD: [id number] DISCHARGE SUMMARY ADMISSION DATE: 06/23/16 DISCHARGE DATE: 06/27/16 HISTORY OF PRESENT ILLNESS: Ms. Alarcon is a very pleasant 56-year-old white female with end-stage renal disease and recurrent ascites of unclear origin, has had evaluation at [facility] and evaluation here by Dr. James, has had a recent TIPS procedure done within the last 2 weeks and discharged home and was stable until she had an episode of hematemesis and was readmitted for that. HOSPITAL COURSE: The patient underwent transfusion with that underwent EGD by Dr. 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 Her ammonia was elevated chronically and was basically stable. Mental status was stable as per recommendation of Dr. Yung, she was begun on estrogen and progesterone replacement for her AV malformations. She also had a fever and was found to have a very resistant urinary tract infection of E. coli and Proteus and she will receive Levaquin as an outpatient as well as gentamicin in the dialysis. She will need to know we will call that order tomorrow. At the time of discharge, she was otherwise stable, hemoglobin was stable post-transfusion with her last hemoglobin being 8.7 and she had no more emesis noted. Her other lab was stable. DISCHARGE DIAGNOSES: 1. 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 2. Hepatic cirrhosis of unclear origin with recent TIPS procedure. 3. End-stage renal disease. 4. Gastrointestinal bleeding. 5. Chronic anemia. PLAN: The patient will be discharged today. She will be in [facility] tomorrow. I will call in her antibiotic orders IV. She will continue her renal diet and ambulation as tolerated. DISCHARGE MEDICATIONS: Ortho-Novum 1/50 one daily. She will be on Protonix 40 mg daily, lactulose 30 t.i.d., Procrit as an outpatient and her Humulin insulin on a p.r.n. basis. I have given her a dose of gentamicin today prior to discharge. TRANSINT:[id number] Voice Confirmation ID: [id number] DOCUMENT ID: [id number] RACHELLE KIRKPATRICK MD at 0729 CC: [id number] DICTATION DATE: 06/27/16 0740 [employer] WOOD: 06/27/16 0901 DIS IN 06/27/16 [facility] [address] [place] [address]
== END 2016-06-27 13:04 | disposition home or self-care (01) | DRG 377 ==
LOC: D.ICU 11:47 → D.M2 11:47
PROVIDERS: Internal Medicine Gastroenterology; ADMIT Internal Medicine Nephrology
PROC: 0W3P8ZZ Control Bleeding in Gastrointestinal Tract, Via Natural or Artificial Opening Endoscopic (ICD-10-PCS; principal; 2016-06-23 15:00)
PROC: 5A1D60Z (ICD-10-PCS; 2016-06-24)
DX: K31.811 Angiodysplasia of stomach and duodenum with bleeding (principal); N18.6 End stage renal disease; N39.0 Urinary tract infection, site not specified; I12.0 Hypertensive chronic kidney disease with stage 5 chronic kidney disease or end stage renal disease; D62 Acute posthemorrhagic anemia; K76.6 Portal hypertension; E72.20 Disorder of urea cycle metabolism, unspecified; B96.20 Unspecified Escherichia coli [E. coli] as the cause of diseases classified elsewhere; E11.22 Type 2 diabetes mellitus with diabetic chronic kidney disease; Z99.2 Dependence on renal dialysis; Z79.4 Long term (current) use of insulin; K74.60 Unspecified cirrhosis of liver; G25.81 Restless legs syndrome; E11.40 Type 2 diabetes mellitus with diabetic neuropathy, unspecified; I25.10 Atherosclerotic heart disease of native coronary artery without angina pectoris; Z95.5 Presence of coronary angioplasty implant and graft; G47.30 Sleep apnea, unspecified

== ENCOUNTER 2016-07-26 14:42 | Emergency (ER) | payer OTHER, MEDICARE ==
[2016-06-24 12:19] VITALS: BMI 36.9
[~2016-07-26 14:42] MED LIST changes: +LEVAQUIN250 MG PO; +NECON 1/501 TAB PO
[2016-07-26] MEDS ORDERED: ENULOSE10 G/15 ML PO (18:55)
== END 2016-07-26 16:21 | disposition home or self-care (01) ==
LOC: D.ER 14:42
DX: R53.1 Weakness (principal)

== ENCOUNTER 2016-07-26 15:10 | Inpatient (IN) | payer OTHER, MEDICARE ==
[2016-07-26 15:43] LABS: BASOPHILS 0.5 % (0-2); EOSINOPHILS 1.4 % (0-7); HEMATOCRIT 28.2 % (36.0-48.0); HEMOGLOBIN 8.9 g/dL (12-16); IMMATURE GRANULOCYTES 0.5 % (0-5); LYMPHOCYTES 22.9 % (15-50); MCH 31.3 pg (26.0-34.0); MCHC 31.6 g/dL (31.0-37.0); MCV 99.3 fL (80.0-100.0); MONOCYTES 7.1 % (2-11); NEUTROPHILS 67.6 % (40-80); RBC 2.84 10x6/uL (4.00-5.40); RDW 17.7 % (11.5-14.5); WBC 4.2 10x3/uL (4.8-10.8)
[2016-07-26 16:01] LABS: PLATELET COUNT 110 10x3/uL (130-400)
[2016-07-26 16:22] LABS: ALBUMIN 2.6 g/dL (3.4-5.0); ANION GAP 14.6 mmol/L (8-16); BILIRUBIN - TOTAL 1.3 mg/dL (0.2-1.3); CALCIUM 8.5 mg/dL (8.5-10.1); CARBON DIOXIDE 26.7 mmol/L (21.0-32.0); CREATININE - SERUM 2.6 mg/dL (0.6-1.3); POTASSIUM - SERUM 3.3 mmol/L (3.5-5.1); PROTEIN - SERUM 7.6 g/dL (6.4-8.2)
[2016-07-26 16:23] LABS: PHOSPHOROUS 3.1 mg/dL (2.5-4.9)
[2016-07-26] MEDS ORDERED: ENULOSE10 G/15 ML PO (18:55)
[2016-07-27 06:59] LABS: BASOPHILS 0.3 % (0-2); HEMOGLOBIN 7.9 g/dL (12-16); IMMATURE GRANULOCYTES 0.6 % (0-5); LYMPHOCYTES 34.1 % (15-50); MCH 31.9 pg (26.0-34.0); MCHC 31.6 g/dL (31.0-37.0); MCV 100.8 fL (80.0-100.0); MEAN PLATELET VOLUME 11.3 fL (7.4-10.4); MONOCYTES 10.7 % (2-11); NEUTROPHILS 52.3 % (40-80); PLATELET COUNT 100 10x3/uL (130-400); RBC 2.48 10x6/uL (4.00-5.40); RDW 17.7 % (11.5-14.5); WBC 3.5 10x3/uL (4.8-10.8)
[2016-07-27 07:01] LABS: INR 1.25 (0.85-1.17); PROTIME 15.6 SECONDS (11.6-15.0)
[2016-07-27 07:11] LABS: ALBUMIN 2.2 g/dL (3.4-5.0); ANION GAP 14.1 mmol/L (8-16); BILIRUBIN - TOTAL 0.9 mg/dL (0.2-1.3); CALCIUM 8.2 mg/dL (8.5-10.1); CARBON DIOXIDE 27.3 mmol/L (21.0-32.0); POTASSIUM - SERUM 3.4 mmol/L (3.5-5.1); PROTEIN - SERUM 6.5 g/dL (6.4-8.2)
[2016-07-27 07:12] LABS: CREATININE - SERUM 3.5 mg/dL (0.6-1.3); PHOSPHOROUS 4.2 mg/dL (2.5-4.9)
[2016-07-27 23:30] LABS: APPEARANCE CLEAR (CLEAR); BILIRUBIN NEGATIVE (NEGATIVE); COLOR YELLOW (YELLOW); GLUCOSE 1000 mg/dL (NEGATIVE); KETONE NEGATIVE (NEGATIVE); LEUKOCYTE ESTERASE NEGATIVE (NEGATIVE); NITRITE NEGATIVE (NEGATIVE); PROTEIN 2+ mg/dL (NEGATIVE); SPECIFIC GRAVITY 1.005 (1.005-1.020); UROBILINOGEN NORMAL (NORMAL)
[2016-07-27 23:35] LABS: RED CELLS - URINE 0-5 /hpf (0-5); WHITE CELLS - URINE 0-5 /hpf (0-5)
[2016-07-27 23:36] LABS: BACTERIA FEW /hpf (NONE SEEN); EPITHELIAL CELLS OCC /hpf (0-5); HYALINE CAST OCC /lpf (NONE SEEN)
[2016-07-28 04:11] LABS: BASOPHILS 0.3 % (0-2); EOSINOPHILS 2.6 % (0-7); HEMOGLOBIN 8.4 g/dL (12-16); IMMATURE GRANULOCYTES 0.8 % (0-5); LYMPHOCYTES 30.4 % (15-50); MCH 32.3 pg (26.0-34.0); MCHC 32.3 g/dL (31.0-37.0); MEAN PLATELET VOLUME 10.4 fL (7.4-10.4); MONOCYTES 7.9 % (2-11); PLATELET COUNT 102 10x3/uL (130-400); RDW 17.3 % (11.5-14.5); WBC 3.8 10x3/uL (4.8-10.8)
[2016-07-28 04:37] LABS: ANION GAP 11.3 mmol/L (8-16); CALCIUM 9.1 mg/dL (8.5-10.1); PHOSPHOROUS 3.6 mg/dL (2.5-4.9); POTASSIUM - SERUM 3.3 mmol/L (3.5-5.1)
[2016-07-29 06:02] LABS: BASOPHILS 0.5 % (0-2); EOSINOPHILS 2.2 % (0-7); HEMATOCRIT 25.4 % (36.0-48.0); HEMOGLOBIN 8.4 g/dL (12-16); IMMATURE GRANULOCYTES 0.5 % (0-5); LYMPHOCYTES 25.3 % (15-50); MCH 33.6 pg (26.0-34.0); MCHC 33.1 g/dL (31.0-37.0); MCV 101.6 fL (80.0-100.0); MEAN PLATELET VOLUME 11.3 fL (7.4-10.4); MONOCYTES 8.1 % (2-11); NEUTROPHILS 63.4 % (40-80); PLATELET COUNT 105 10x3/uL (130-400); RDW 17.7 % (11.5-14.5); WBC 4.1 10x3/uL (4.8-10.8)
[2016-07-29 06:29] LABS: ANION GAP 11.1 mmol/L (8-16); CALCIUM 8.2 mg/dL (8.5-10.1); CARBON DIOXIDE 26.7 mmol/L (21.0-32.0); CREATININE - SERUM 3.2 mg/dL (0.6-1.3); PHOSPHOROUS 2.8 mg/dL (2.5-4.9)
[2016-07-29 06:31] LABS: POTASSIUM - SERUM 3.8 mmol/L (3.5-5.1)
[2016-07-29 10:11] LABS: HEPATITIS C ANTIBODY <0.1 (0.0-0.9)
[2016-07-30 10:16] LABS: BASOPHILS 0.5 % (0-2); EOSINOPHILS 2.4 % (0-7); HEMOGLOBIN 8.7 g/dL (12-16); IMMATURE GRANULOCYTES 0.5 % (0-5); LYMPHOCYTES 22.5 % (15-50); MCHC 32.2 g/dL (31.0-37.0); MCV 102.3 fL (80.0-100.0); MEAN PLATELET VOLUME 10.8 fL (7.4-10.4); MONOCYTES 6.1 % (2-11); PLATELET COUNT 119 10x3/uL (130-400); RBC 2.64 10x6/uL (4.00-5.40); RDW 17.8 % (11.5-14.5)
[2016-07-30 10:29] LABS: WBC 5.9 10x3/uL (4.8-10.8)
[2016-07-30 10:34] LABS: ANION GAP 11.5 mmol/L (8-16); CALCIUM 8.6 mg/dL (8.5-10.1); CARBON DIOXIDE 27.1 mmol/L (21.0-32.0); CREATININE - SERUM 3.9 mg/dL (0.6-1.3); POTASSIUM - SERUM 3.6 mmol/L (3.5-5.1)
[2016-07-30] MEDS ORDERED: XIFAXAN550 MG PO (11:28)
[2016-07-30] MEDS ORDERED: NORVASC5 MG PO (11:29)
[2016-07-30] MEDS ORDERED: LOPRESSOR25 MG PO (11:29)
== END 2016-07-30 14:35 | disposition home or self-care (01) | DRG 441 ==
LOC: D.M2 15:10
PROVIDERS: Emergency Medicine; Internal Medicine Nephrology; ADMIT Internal Medicine Nephrology
PROC: 5A1D60Z (ICD-10-PCS; principal; 2016-07-26)
DX: K72.90 Hepatic failure, unspecified without coma (principal); N18.6 End stage renal disease; I13.2 Hypertensive heart and chronic kidney disease with heart failure and with stage 5 chronic kidney disease, or end stage renal disease; E72.20 Disorder of urea cycle metabolism, unspecified; D68.9 Coagulation defect, unspecified; Z91.14 Patient's other noncompliance with medication regimen; E11.22 Type 2 diabetes mellitus with diabetic chronic kidney disease; I50.9 Heart failure, unspecified; Z99.2 Dependence on renal dialysis; E11.40 Type 2 diabetes mellitus with diabetic neuropathy, unspecified; I25.10 Atherosclerotic heart disease of native coronary artery without angina pectoris; F41.9 Anxiety disorder, unspecified; F32.9 Major depressive disorder, single episode, unspecified; D69.6 Thrombocytopenia, unspecified; D64.9 Anemia, unspecified; E78.89 Other lipoprotein metabolism disorders; K74.60 Unspecified cirrhosis of liver; Z86.010 Personal history of colon polyps; Z95.5 Presence of coronary angioplasty implant and graft